=== PATIENT | female | born 1935 | race Caucasian/White ===

== ENCOUNTER 2016-12-29 13:40 | Emergency (ER) | payer MEDICARE ==
[~2016-12-29] VITALS: Ht 152.4 cm; Wt 49.9 kg
[2016-12-29] MEDS ORDERED: BUDE0.5S6 INH (13:59)
[2016-12-29] MEDS ORDERED: TYLE500T78 PO (13:59)
[2016-12-29] MEDS ORDERED: BROV15NE IN (13:59)
[2016-12-29] MEDS ORDERED: META48.54 PO (13:59)
[2016-12-29] MEDS ORDERED: AMIT24CA5 PO (13:59)
[2016-12-29] MEDS ORDERED: ASPI81TA13 PO (13:59)
[2016-12-29] MEDS ORDERED: LOVA40TA PO (13:59)
[2016-12-29] MEDS ORDERED: RANI15TA PO (13:59)
[2016-12-29] MEDS ORDERED: MIRA3350 PO (13:59)
[2016-12-29] MEDS ORDERED: XANA0.25 PO (13:59)
[2016-12-29] MEDS ORDERED: VERA240C PO (13:59)
[2016-12-29] MEDS ORDERED: TIOT18INH INH (13:59)
[2016-12-29] MEDS ORDERED: NS 1,000 ML IV SCH (14:27)
[2016-12-29 14:42] LABS: BASO % 0.2 % (0.0-1.0); EOS # 0.1 K/mm3 (0.0-0.50); EOS % 1.5 % (0.0-3.0); LARGE UNSTAINED CELL # 0.1 K/mm3 (0.0-0.4); LARGE UNSTAINED CELL % 1.5 % (0.0-4.0); LYMPH # 1.4 K/mm3 (1.5-4.5); LYMPH % 19.1 % (24.0-44.0); MEAN CORPUSCULAR HEMOGLOBIN 31.5 pg (27.0-33.0); MEAN CORPUSCULAR VOLUME 95.6 fl (80.0-96.0); MONO # 0.6 K/mm3 (0.0-0.8); MONO % 9.3 % (0.0-5.0); NEUTROPHILS # 4.5 K/mm3 (1.8-7.7); NEUTROPHILS % 68.3 % (36.0-66.0); PLATELET COUNT, AUTOMATED 286 k/mm3 (150-450); RED CELL DISTRIBUTION WIDTH 13.2 % (11.5-14.5); WHITE BLOOD COUNT 6.5 K/mm3 (4.0-10.0)
[2016-12-29 14:59] LABS: ALBUMIN 3.7 GM/DL (3.2-5.2); ALBUMIN/GLOBULIN RATIO 1.23 (1.00-1.93); ALKALINE PHOSPHATASE 83 U/L (45-117); ALT/SGPT 15 U/L (12-78); ANION GAP 8 MEQ/L (8-16); AST/SGOT 25 U/L (15-37); BILIRUBIN,DIRECT 0.2 MG/DL (0.0-0.2); BILIRUBIN,TOTAL 0.6 MG/DL (0.2-1.0); BLOOD UREA NITROGEN 17 MG/DL (7-18); CALCIUM LEVEL 9.4 MG/DL (8.8-10.2); CARBON DIOXIDE LEVEL 29 MEQ/L (21-32); CHLORIDE LEVEL 103 MEQ/L (98-107); CREATININE FOR GFR 0.89 MG/DL (0.55-1.02); GLOMERULAR FILTRATION RATE > 60.0 (>32); GLUCOSE, FASTING 93 MG/DL (83-110); POTASSIUM SERUM 4.1 MEQ/L (3.5-5.1); SODIUM LEVEL 140 MEQ/L (136-145); TOTAL PROTEIN 6.7 GM/DL (6.4-8.2)
[2016-12-29] MEDS ORDERED: GASTROGRAFIN SOLUTION 30ML (Q9963) PO ONE ×2 (16:00→16:30)
[2016-12-29] MEDS ORDERED: GASTROGRAFIN SOLUTION 30ML (Q9963) As Ordered ONE (16:01)
[2016-12-29] MEDS ORDERED: ISOVUE-370 76% 100ML VIAL (Q9967) As Ordered ONE (17:22)
--- NOTE | 2016-12-29 18:00 | REPUSA ---
CT of the abdomen and pelvis with contrast Clinical statement: Pain. Technique: Multiple axial CT images were obtained from the base of the lungs through the floor of the pelvis utilizing 5 mm axial slices after administration of oral and nonionic intravenous contrast. C oronal and sagittal reconstructions were also obtained. No comparison is available. Findings: Chest: The visualized lung bases are clear. There is a moderate sized hiatal hernia. Abdomen: The liver, spleen, pancreas, gallbladder, and adrenal glands are unremarkable. There is a so lid mass in the lateral right kidney measuring 2.5 x 1.9 x 2.9 cm, which demonstrates peripheral calc ifications. There are multiple bilateral simple renal cysts. The aorta is within normal limits. There is no evidence of abdominal lymphadenopathy or ascites. There is a very tiny umbilical hernia. Pelvis: There is diffuse bowel wall thickening involving the majority of the descending and sigmoid colon. The urinary bladder is within normal limits. The other pelvic structures appear grossly intact . There is no evidence of pelvic lymphadenopathy or ascites. Bones: There are no suspicious osseous abnormalities seen.Severe multilevel degenerative disc disease with disc osteophyte complexes are seen throughout the lumbar spine. There is moderate narrowing and osteophytic spurring at the hip joints bilaterally. Impression: 1. Diffuse bowel wall thickening involving the descending and sigmoid colon, suspicious for an infect ious colitis. No evidence of obstruction. 2. Solid, partially calcified mass in the lateral right kidney. This must be considered neoplasm unti l proven otherwise. Comparison with prior CT examination would be helpful. Otherwise, biopsy should be considered. 3.Additionally, bilateral simple renal cysts are noted. 4. Moderate sized hiatal hernia. 5. Tiny umbilical hernia. 6. Severe spondylosis of the lumbar spine. 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
[2016-12-29] MEDS ORDERED: FLAG500T PO (18:16)
[2016-12-29] MEDS ORDERED: CIPR500T89 PO (18:16)
[2016-12-29 18:49] VITALS: BP 162/75
== END 2016-12-29 18:51 | disposition home or self-care (01) ==
LOC: M ED 15:42
DX: K52.9 Noninfective gastroenteritis and colitis, unspecified (principal); I10 Essential (primary) hypertension; J44.9 Chronic obstructive pulmonary disease, unspecified; E78.9 Disorder of lipoprotein metabolism, unspecified; Z86.73 Personal history of transient ischemic attack (TIA), and cerebral infarction without residual deficits; Z88.8 Allergy status to other drugs, medicaments and biological substances; Z88.2 Allergy status to sulfonamides; Z79.899 Other long term (current) drug therapy; Z79.82 Long term (current) use of aspirin; Z79.51 Long term (current) use of inhaled steroids
CPT/HCPCS: 74177; 80048; 80076; 83690; 85025; 86850; 86900; 86901; 93041; 99284; Q9963; Q9967

== ENCOUNTER → 2017-01-14 | Outpatient (REF) | payer MEDICARE ==
[~2017-01-14] MED LIST: AMIT24CA5 PO; ASPI81TA13 PO; BROV15NE IN; BUDE0.5S6 INH; CIPR500T89 PO; FLAG500T PO; LOVA40TA PO; META48.54 PO; MIRA3350 PO; RANI15TA PO; TIOT18INH INH; TYLE500T78 PO; VERA240C PO; XANA0.25 PO
[2017-01-14 18:20] LABS: MEAN CORPUSCULAR HEMOGLOBIN 31.6 pg (27.0-33.0); MEAN CORPUSCULAR HGB CONC 31.9 g/dl (32.0-36.5); MEAN CORPUSCULAR VOLUME 99.3 fl (80.0-96.0); RED CELL DISTRIBUTION WIDTH 13.1 % (11.5-14.5); WHITE BLOOD COUNT 9.2 K/mm3 (4.0-10.0)
== END ==
LOC: M SFHCPLAZ 14:21
PROVIDERS: ATTEND Family Medicine
DX: D50.9 Iron deficiency anemia, unspecified (principal); N28.89 Other specified disorders of kidney and ureter

== ENCOUNTER → 2017-01-20 | Outpatient (REF) | payer MEDICARE ==
[2017-01-20 16:08] LABS: FOLATE 9.5 NG/ML (>5.4)
== END ==
LOC: M SFHCPLAZ 14:06
PROVIDERS: ATTEND Family Medicine
DX: D53.9 Nutritional anemia, unspecified (principal)
CPT/HCPCS: 36415; 82607; 82746; 84443; G0463

== ENCOUNTER → 2017-02-04 | Outpatient (CLI) | payer MEDICARE ==
--- NOTE | 2017-02-06 14:20 | DEXA ---
AP SPINE L1 - L4 1.250 0.4 2.8 LT FEMUR TOTAL 0.669 -2.7 -0.2 RT FEMUR TOTAL 0.691 -2.5 0.0 TOTAL BODY TOTAL OTHER DUAL FEMUR FRAX* ASSESSMENT Risk factors: Family history fracture hip, history of fracture as an adult. 10 year probability of fracture Major osteoporotic fracture 50.9 % Hip fracture 48.5 % COMMENTS: Normal bone densitometry of the spine. There is osteoporosis of the hips. The decreased density of the spine does represent a significant change. The decreased density of the left hip does represent a significant change. The decreased density of the right hip does represent a significant change. The density of the spine has increased 5.7% since the initial exam on 1998. The spine density has decreased 4.7% since the most recent exam on 07/10/2010. The density of the left hip has decreased 21.0% since the initial exam on 1998. The density of the left hip has decreased 13.1% since the most recent exam on . The density of the right hip has decreased 20.9% since initial exam on 1998. The density of the right hip has decreased 11.0% since the most recent exam on 07/10/2010. FOLLOW-UP: Recommendation for the next bone density exam: 2 years. KRISHNA
== END ==
LOC: M WHC 10:33
PROVIDERS: ATTEND Family Medicine
DX: M85.80 Other specified disorders of bone density and structure, unspecified site (principal); M81.0 Age-related osteoporosis without current pathological fracture

== ENCOUNTER → 2017-07-17 | Outpatient (CLI) | payer MEDICARE ==
[~2017-07-17] MED LIST changes: -AMIT24CA5 PO; +AMIT24CA7 PO; -ASPI81TA13 PO; +ASPI81TA24 PO; +CIPR-249 PO; -CIPR500T89 PO
--- NOTE | 2017-07-17 15:41 | REPMRS ---
Patient History The patient states she had a clinical breast exam in 07/2017. Patient is postmenopausal. Family history of colorectal cancer in father at age 50 or over and breast cancer in paternal aunt under age 50. Took estrogen for 7 years. Digital Woman Screen Mammo: July 17, 2017 - Exam #: [id number] Bilateral CC and MLO view(s) were taken. Technologist: Mikaela Harrison, Technologist Prior study comparison: July 16, 2016, digital woman screen mammo performed at [facility]. July 05, 2015, digital woman screen mammo performed at [facility]. July 05, 2014, digital woman screen mammo performed at [facility]. FINDINGS: There are scattered fibroglandular densities. There is a moderate amount of residual fibroglandular tissue which is fairly symmetric. There is no interval development of dominant mass, architectural distortion, or clustered microcalcification typical of malignancy. There has been no change in the appearance of the mammogram from the prior studies. ASSESSMENT: BI-RADS/ACR category 1 mammogram. Negative. Recommendation Routine screening mammogram of both breasts in 1 year (for women over age 40). This mammogram was interpreted with the aid of an FDA-approved computer-aided dectection system. Electronically Signed By: Wilfrid Schumacher MD 07/17/17 [id number]
== END ==
LOC: M WHC 14:09
PROVIDERS: ATTEND Nurse Practitioner Women's Health
DX: Z12.31 Encounter for screening mammogram for malignant neoplasm of breast (principal); Z78.0 Asymptomatic menopausal state; Z80.0 Family history of malignant neoplasm of digestive organs
CPT/HCPCS: G0202; G0463

== ENCOUNTER → 2018-01-19 | Outpatient (REF) | payer MEDICARE ==
[2018-01-19 16:01] LABS: HEMATOCRIT 36.9 % (36.0-47.0); HEMOGLOBIN 11.7 g/dl (12.0-15.5); MEAN CORPUSCULAR HEMOGLOBIN 29.5 pg (27.0-33.0); MEAN CORPUSCULAR HGB CONC 31.7 g/dl (32.0-36.5); MEAN CORPUSCULAR VOLUME 92.9 fl (80.0-96.0); PLATELET COUNT, AUTOMATED 241 10^3/uL (150-450); RED BLOOD COUNT 3.97 10^6/uL (4.00-5.40); RED CELL DISTRIBUTION WIDTH 23.4 % (11.5-14.5); WHITE BLOOD COUNT 6.1 10^3/uL (4.0-10.0)
[2018-01-19 16:17] LABS: ANION GAP 6 MEQ/L (8-16); BLOOD UREA NITROGEN 21 MG/DL (7-18); CALCIUM LEVEL 9.2 MG/DL (8.8-10.2); CARBON DIOXIDE LEVEL 29 MEQ/L (21-32); CHLORIDE LEVEL 106 MEQ/L (98-107); CREATININE FOR GFR 0.93 MG/DL (0.55-1.30); GLOMERULAR FILTRATION RATE > 60.0 (>32); GLUCOSE, FASTING 94 MG/DL (70-100); POTASSIUM SERUM 4.5 MEQ/L (3.5-5.1); SODIUM LEVEL 141 MEQ/L (136-145)
== END ==
LOC: M SFHCPLAZ 13:05
DX: I10 Essential (primary) hypertension (principal)
CPT/HCPCS: 80048

== ENCOUNTER 2018-03-20 15:25 | Emergency (ER) | payer MEDICARE ==
[2018-03-20] MEDS: NS 1,000 ML IV (17:30)
[2018-03-20 17:39] LABS: BASO % 0.3 % (0.0-1.0); EOS # 0.2 10^3/uL (0.0-0.50); EOS % 2.9 % (0.0-3.0); HEMATOCRIT 37.5 % (36.0-47.0); HEMOGLOBIN 12.8 g/dl (12.0-15.5); IMMATURE GRANULOCYTE % 0.3 % (0-3.0); LYMPH # 1.8 10^3/uL (1.5-4.5); LYMPH % 27.1 % (24.0-44.0); MEAN CORPUSCULAR HEMOGLOBIN 32.3 pg (27.0-33.0); MEAN CORPUSCULAR HGB CONC 34.1 g/dl (32.0-36.5); MEAN CORPUSCULAR VOLUME 94.7 fl (80.0-96.0); MONO # 0.6 10^3/uL (0.0-0.8); MONO % 9.5 % (0.0-5.0); NEUTROPHILS # 3.9 10^3/uL (1.8-7.7); NEUTROPHILS % 59.9 % (36.0-66.0); PLATELET COUNT, AUTOMATED 237 10^3/uL (150-450); RED BLOOD COUNT 3.96 10^6/uL (4.00-5.40); RED CELL DISTRIBUTION WIDTH 14.4 % (11.5-14.5); WHITE BLOOD COUNT 6.5 10^3/uL (4.0-10.0)
[2018-03-20 17:52] LABS: INR 0.88; PARTIAL THROMBOPLASTIN TIME 27.3 SECONDS (25.4-37.6); PROTHROMBIN TIME 12.1 SECONDS (12.1-14.4)
[2018-03-20 17:59] LABS: LACTIC ACID SEPSIS PROTOCOL 0.7 MMOL/L (0.4-2.0)
[2018-03-20] MEDS: ONDANSETRON 4MG/2ML VIAL (J2405) IV (17:59)
[2018-03-20 18:02] LABS: ALBUMIN 3.7 GM/DL (3.2-5.2); ALBUMIN/GLOBULIN RATIO 1.23 (1.00-1.93); ALKALINE PHOSPHATASE 89 U/L (45-117); ALT/SGPT 28 U/L (12-78); AMYLASE 37 U/L (25-115); ANION GAP 11 MEQ/L (8-16); AST/SGOT 30 U/L (7-37); BILIRUBIN,DIRECT 0.1 MG/DL (0.0-0.2); BILIRUBIN,TOTAL 0.4 MG/DL (0.2-1.0); BLOOD UREA NITROGEN 16 MG/DL (7-18); CALCIUM LEVEL 9.1 MG/DL (8.8-10.2); CARBON DIOXIDE LEVEL 26 MEQ/L (21-32); CHLORIDE LEVEL 104 MEQ/L (98-107); CK-MB VALUE MASS 1.8 NG/ML (<3.6); CPK CREATINE PHOSPHOKINASE 71 U/L (26-192); CREATININE FOR GFR 0.73 MG/DL (0.55-1.30); GLOMERULAR FILTRATION RATE > 60.0 (>32); GLUCOSE, FASTING 90 MG/DL (70-100); LIPASE 153 U/L (73-393); MB/CK RELATIVE INDEX 2.53 (< OR =4); POTASSIUM SERUM 4.4 MEQ/L (3.5-5.1); SODIUM LEVEL 141 MEQ/L (136-145); TOTAL PROTEIN 6.7 GM/DL (6.4-8.2); TROPONIN I < 0.02 NG/ML (< 0.10)
[2018-03-20 19:33] LABS: KETONE, URINE AUTO RFX NEGATIVE (NEGATIVE); NITRITE, URINE AUTO RFX NEGATIVE (NEGATIVE); RBC, URINE AUTO RFX 4 /HPF (0-3); SPECIFIC GRAVITY UR AUTO RFX 1.005 (1.002-1.035); SQUAM EPITHELIAL CELL UR AURFX 1 /HPF (0-6); TRANSITIONAL EPITHELIAL AU RFX <1 /HPF; WBC, URINE AUTO RFX 3 /HPF (0-3)
[2018-03-20 19:34] LABS: LEUKOCYTE ESTERASE UR AUTO RFX 1+ (NEGATIVE)
== END 2018-03-20 20:36 | disposition home or self-care (01) ==
LOC: M ED 15:25
DX: R53.1 Weakness (principal); I10 Essential (primary) hypertension; E78.00 Pure hypercholesterolemia, unspecified; K58.9 Irritable bowel syndrome, unspecified; Z79.899 Other long term (current) drug therapy; Z79.82 Long term (current) use of aspirin; Z88.1 Allergy status to other antibiotic agents; Z88.2 Allergy status to sulfonamides; Z88.8 Allergy status to other drugs, medicaments and biological substances
CPT/HCPCS: 93005

== ENCOUNTER → 2018-06-23 | Outpatient (REF) | payer MEDICARE ==
[2018-06-23 15:29] LABS: BASO % 0.3 % (0.0-1.0); EOS # 0.1 10^3/uL (0.0-0.50); EOS % 2.1 % (0.0-3.0); HEMATOCRIT 38.1 % (36.0-47.0); HEMOGLOBIN 12.6 g/dl (12.0-15.5); IMMATURE GRANULOCYTE % 0.5 % (0-3.0); LYMPH # 1.5 10^3/uL (1.5-4.5); LYMPH % 25.1 % (24.0-44.0); MEAN CORPUSCULAR HEMOGLOBIN 33.1 pg (27.0-33.0); MEAN CORPUSCULAR HGB CONC 33.1 g/dl (32.0-36.5); MONO # 0.6 10^3/uL (0.0-0.8); MONO % 10.1 % (0.0-5.0); NEUTROPHILS # 3.6 10^3/uL (1.8-7.7); NEUTROPHILS % 61.9 % (36.0-66.0); PLATELET COUNT, AUTOMATED 268 10^3/uL (150-450); RED BLOOD COUNT 3.81 10^6/uL (4.00-5.40); RED CELL DISTRIBUTION WIDTH 12.6 % (11.5-14.5); WHITE BLOOD COUNT 5.8 10^3/uL (4.0-10.0)
[2018-06-23 16:04] LABS: ALBUMIN 4.2 GM/DL (3.2-5.2); ALBUMIN/GLOBULIN RATIO 1.45 (1.00-1.93); ALKALINE PHOSPHATASE 97 U/L (45-117); ALT/SGPT 24 U/L (12-78); ANION GAP 7 MEQ/L (8-16); AST/SGOT 25 U/L (7-37); BILIRUBIN,TOTAL 0.3 MG/DL (0.2-1.0); BLOOD UREA NITROGEN 21 MG/DL (7-18); C REACTIVE PROTEIN QUANTITATIV < 0.30 MG/DL (0.00-0.30); CALCIUM LEVEL 9.4 MG/DL (8.8-10.2); CARBON DIOXIDE LEVEL 30 MEQ/L (21-32); CHLORIDE LEVEL 102 MEQ/L (98-107); CREATININE FOR GFR 0.93 MG/DL (0.55-1.30); GLOMERULAR FILTRATION RATE > 60.0 (>32); GLUCOSE, FASTING 83 MG/DL (70-100); POTASSIUM SERUM 4.4 MEQ/L (3.5-5.1); SODIUM LEVEL 139 MEQ/L (136-145); TOTAL PROTEIN 7.1 GM/DL (6.4-8.2)
== END ==
LOC: M LABDRAWP 14:27
DX: D50.9 Iron deficiency anemia, unspecified (principal)
CPT/HCPCS: 80053

== ENCOUNTER → 2018-06-30 | Outpatient (CLI) | payer MEDICARE ==
[~2018-06-30] MED LIST changes: -AMIT24CA7 PO; -ASPI81TA24 PO; -BROV15NE IN; -BUDE0.5S6 INH; -CIPR-249 PO; -FLAG500T PO; +GASTROGRAFIN SOLUTION 30ML (Q9963) As Ordered; +ISOVUE-370 76% 100ML VIAL (Q9967) As Ordered; -LOVA40TA PO; -META48.54 PO; -MIRA3350 PO; -RANI15TA PO; -TIOT18INH INH; -TYLE500T78 PO; -VERA240C PO; -XANA0.25 PO
== END ==
LOC: M RAD 13:12
DX: R11.2 Nausea with vomiting, unspecified (principal); R10.9 Unspecified abdominal pain; D50.9 Iron deficiency anemia, unspecified
CPT/HCPCS: Q9963

== ENCOUNTER → 2018-12-01 | Outpatient (REF) | payer MEDICARE ==
[~2018-12-01] MED LIST changes: +AMIT24CA7 PO; +ASPI81TA24 PO; +BRIM1OPD; +BROV15NE IN; +BUDE0.5S6 INH; +CIPR-249 PO; +FLAG500T PO; -GASTROGRAFIN SOLUTION 30ML (Q9963) As Ordered; -ISOVUE-370 76% 100ML VIAL (Q9967) As Ordered; +LINZ290C; +LOVA40TA PO; +META48.54 PO; +MIRA3350 PO; +OMEP20CA3; +RANI15TA PO; +TIOT18INH INH; +TRAN1TAB48; +TYLE500T78 PO; +VERA240C PO; +XANA0.25 PO
[2018-12-01 16:40] LABS: BLOOD UREA NITROGEN 17 MG/DL (7-18); CALCIUM LEVEL 8.9 MG/DL (8.8-10.2); CARBON DIOXIDE LEVEL 33 MEQ/L (21-32); CHLORIDE LEVEL 99 MEQ/L (98-107); CREATININE FOR GFR 0.74 MG/DL (0.55-1.30); GLOMERULAR FILTRATION RATE > 60.0 (>32); GLUCOSE, FASTING 81 MG/DL (70-100); POTASSIUM SERUM 4.5 MEQ/L (3.5-5.1); SODIUM LEVEL 137 MEQ/L (136-145)
[2018-12-01 16:53] LABS: HEMATOCRIT 35.9 % (36.0-47.0); HEMOGLOBIN 11.2 g/dl (12.0-15.5); MEAN CORPUSCULAR HEMOGLOBIN 29.8 pg (27.0-33.0); MEAN CORPUSCULAR HGB CONC 31.2 g/dl (32.0-36.5); MEAN CORPUSCULAR VOLUME 95.5 fl (80.0-96.0); PLATELET COUNT, AUTOMATED 389 10^3/uL (150-450); RED BLOOD COUNT 3.76 10^6/uL (4.00-5.40); WHITE BLOOD COUNT 6.8 10^3/uL (4.0-10.0)
[2018-12-01 17:02] LABS: CREATININE, URINE 90.1 MG/DL; MALB URINE SIEMENS 8.7 MG/L; MAU/CREAT RATIO 9.6 MCG/MG (0.0-30.0)
== END ==
LOC: M SFHCPLAZ 11:53
PROVIDERS: ATTEND Family Medicine
DX: D50.9 Iron deficiency anemia, unspecified (principal); I10 Essential (primary) hypertension
CPT/HCPCS: 36415; 80048; 82043; 85027; G0463

== ENCOUNTER → 2019-02-04 | Outpatient (REF) | payer MEDICARE ==
[2019-02-04 17:34] LABS: ALBUMIN 3.4 GM/DL (3.2-5.2); BILIRUBIN,TOTAL 0.3 MG/DL (0.2-1.0); C REACTIVE PROTEIN QUANTITATIV 7.35 MG/DL (0.00-0.30); CALCIUM LEVEL 9.1 MG/DL (8.8-10.2); CREATININE FOR GFR 1.08 MG/DL (0.55-1.30); GLOMERULAR FILTRATION RATE 51.3 (>32); POTASSIUM SERUM 5.1 MEQ/L (3.5-5.1); TOTAL PROTEIN 7.1 GM/DL (6.4-8.2)
[2019-02-04 17:45] LABS: BASO % 0.3 % (0.0-1.0); EOS # 0.2 10^3/uL (0.0-0.50); EOS % 3.3 % (0.0-3.0); HEMOGLOBIN 10.7 g/dl (12.0-15.5); LYMPH # 1.5 10^3/uL (1.5-4.5); LYMPH % 26.5 % (24.0-44.0); MEAN CORPUSCULAR HEMOGLOBIN 29.9 pg (27.0-33.0); MEAN CORPUSCULAR HGB CONC 31.5 g/dl (32.0-36.5); MONO # 0.6 10^3/uL (0.0-0.8); NEUTROPHILS # 3.4 10^3/uL (1.8-7.7); NEUTROPHILS % 58.6 % (36.0-66.0); PLATELET COUNT, AUTOMATED 293 10^3/uL (150-450); RED BLOOD COUNT 3.58 10^6/uL (4.00-5.40); WHITE BLOOD COUNT 5.7 10^3/uL (4.0-10.0)
== END ==
LOC: M LABDRAW1 15:19
PROVIDERS: ATTEND Internal Medicine Gastroenterology
DX: D50.9 Iron deficiency anemia, unspecified (principal)

== ENCOUNTER 2019-03-25 20:28 | Inpatient (IN) | payer MEDICARE ==
[~2019-03-25] VITALS: Ht 152.4 cm; Wt 54.2 kg
[~2019-03-25 20:28] MED LIST changes: -BROV15NE IN; +BROV15NE INH; -OMEP20CA3; +OMEP20CA4
[2019-03-25 21:16] LABS: BASO % 0.2 % (0.0-1.0); EOS # 0.1 10^3/uL (0.0-0.50); EOS % 0.8 % (0.0-3.0); HEMATOCRIT 38.9 % (36.0-47.0); HEMOGLOBIN 12.5 g/dl (12.0-15.5); LYMPH # 1.2 10^3/uL (1.5-4.5); LYMPH % 13.4 % (24.0-44.0); MEAN CORPUSCULAR HEMOGLOBIN 30.2 pg (27.0-33.0); MEAN CORPUSCULAR HGB CONC 32.1 g/dl (32.0-36.5); MONO # 0.4 10^3/uL (0.0-0.8); MONO % 4.2 % (0.0-5.0); NEUTROPHILS # 7.2 10^3/uL (1.8-7.7); NEUTROPHILS % 81.2 % (36.0-66.0); PLATELET COUNT, AUTOMATED 256 10^3/uL (150-450); RED BLOOD COUNT 4.14 10^6/uL (4.00-5.40); WHITE BLOOD COUNT 8.9 10^3/uL (4.0-10.0)
[2019-03-25 21:25] LABS: ALBUMIN 3.9 GM/DL (3.2-5.2); ALT/SGPT 20 U/L (12-78); BILIRUBIN,DIRECT 0.1 MG/DL (0.0-0.2); BILIRUBIN,TOTAL 0.4 MG/DL (0.2-1.0); BLOOD UREA NITROGEN 18 MG/DL (7-18); CARBON DIOXIDE LEVEL 31 MEQ/L (21-32); CHLORIDE LEVEL 103 MEQ/L (98-107); CREATININE FOR GFR 0.78 MG/DL (0.55-1.30); GLOMERULAR FILTRATION RATE > 60.0 (>32); GLUCOSE, FASTING 109 MG/DL (70-100); LIPASE 102 U/L (73-393); POTASSIUM SERUM 4.3 MEQ/L (3.5-5.1); SODIUM LEVEL 141 MEQ/L (136-145); TOTAL PROTEIN 7.5 GM/DL (6.4-8.2)
[2019-03-25] MEDS: GASTROGRAFIN SOLUTION 30ML PO SCH (23:22)
[2019-03-26] MEDS: GASTROGRAFIN SOLUTION 30ML PO SCH (00:21)
[2019-03-26] MEDS ORDERED: ISOVUE-370 76% 100ML VIAL (Q9967) As Ordered ONE (00:56)
[2019-03-26] MEDS ORDERED: KETOROLAC 30 MG/ML VIAL (J1885) IV ONE (01:15)
--- NOTE | 2019-03-26 05:04 | REPVR ---
EXAM: CT Abdomen and Pelvis With Contrast EXAM DATE/TIME: 03/26/2019 3:20 AM CLINICAL HISTORY: 83 years old, female; Abdominal pain; Generalized; Additional info: Gen abd pain similar to bowel obstruction in past TECHNIQUE: Imaging protocol: Axial computed tomography images of the abdomen and pelvis with intravenous contrast. Coronal and sagittal reformatted images were created and reviewed. Radiation optimization: All CT scans at this facility use at least one of these dose optimization techniques: automated exposure control; mA and/or kV adjustment per patient size (includes targeted exams where dose is matched to clinical indication); or iterative reconstruction. Contrast material: ISOVUE 370; Contrast volume: 100 ml; Contrast route: IV; COMPARISON: CT ABD PELVIS WITH CONTRAST 06/30/2018 2:54 PM Comparison made to the report of a prior CT scan of the abdomen and pelvis from 12/29/2016. FINDINGS: Lungs: There is nonspecific patchy density and increased reticulation in the anterior left lung base. There is suggestion of emphysema in the visualized lung bases. Mediastinum: A moderate sized hiatal hernia is again present. Liver: There are no focal liver lesions present. Gallbladder and bile ducts: The gallbladder is normal with no stones or biliary ductal dilation. Pancreas: The pancreas is normal with no ductal dilation. Spleen: 4 mm and 6 mm low attenuation lesions are in noted in the spleen, of uncertain etiology but unchanged from the prior exam and of doubtful clinical significance. Adrenals: The adrenal glands are diffusely thickened but without discrete nodules. Kidneys and ureters: There is a heterogeneous density, partially calcified lesion at the right kidney midpole measuring 2.6 x 2.2 x 3.3 cm, without significant change from the prior exam. However, on a prior report from a CT scan of December,, measurements of 2.5 x 1.9 x 2.9 cm were obtained. A 2.8 cm simple cyst in the left kidney a 3.1 cm simple cyst in the right kidney midpole and a 2.0 cm simple cyst in right kidney lower pole are without significant change. There are no ureteral stones or hydronephrosis. Stomach and bowel: There are multiple dilated, fluid-filled small bowel loops in the midabdomen, which appears to involve the mid and distal ileum. Proximal small bowel loops are not significantly dilated. The transition is in the distal ileum, where there is a thickened, nondistended bowel loop at the terminal ileum. The colon is non-dilated. There is air and stool in the colon without significant wall thickening. Appendix: The appendix is not specifically identified. Intraperitoneal space: There is no free intraperitoneal air. Vasculature: The aorta demonstrates severe atherosclerotic calcification. Lymph nodes: No lymphadenopathy is seen. Bladder: There is distention of the bladder measuring 13.4 x 14.7 x 12.5 cm. No definite bladder wall thickening or bladder stones are identified. Reproductive: The uterus is either atrophic or has been resected. Bones/joints: Degenerative endplate changes are seen at multiple levels in the visualized spine. Soft tissues: Unremarkable. IMPRESSION: 1. Dilated, fluid-filled small bowel, indicating a small bowel obstruction. The transition is at a thickened segment of the distal ileum, but the etiology of the thickening is unknown and may be infectious/inflammatory or neoplastic. 2. Distended bladder. 3. Moderate-sized hiatal hernia. 4. Complex, partially calcified lesion in the right kidney, as seen and reported previously is suspicious for neoplasm. It has not changed significantly in size compared to June 2018, but measurements are larger than measurements given on a prior report from December,. Electronically signed by: Brenna Echeverria On 03/26/2019 05:04:14 AM
[2019-03-26] MEDS ORDERED: MORPHINE 4 MG/ML 1ML VIAL/SYRINGE (J2270) As Ordered ONE (05:26)
[2019-03-26] MEDS ORDERED: NS 1,000 ML IV SCH (05:28)
[2019-03-26] MEDS ORDERED: MORPHINE 4 MG/ML 1ML VIAL/SYRINGE (J2270) IV ONE (05:30)
[2019-03-26] MEDS ORDERED: ONDANSETRON 4MG/2ML VIAL (J2405) As Ordered ONE (05:34)
[2019-03-26] MEDS ORDERED: PANT-23 PO (05:56)
[2019-03-26] MEDS ORDERED: DICY1CAP8 PO (05:56)
[2019-03-26] MEDS ORDERED: LINZ290C PO (05:56)
[2019-03-26] MEDS ORDERED: BRIM1OPD OU (05:56)
[2019-03-26] MEDS ORDERED: CHOL10007 PO (05:56)
[2019-03-26] MEDS ORDERED: SPIR1CAP INH (05:56)
[2019-03-26] MEDS ORDERED: MIRA1POW3 PO (05:56)
[2019-03-26] MEDS ORDERED: TRAN1TAB47 PO (05:56)
[2019-03-26] MEDS ORDERED: SENN1TAB8 PO (05:56)
[2019-03-26] MEDS ORDERED: ACET-683 PO (05:56)
[2019-03-26] MEDS ORDERED: XALA0.007 OU (05:56)
[2019-03-26] MEDS ORDERED: VERA180C3 PO (05:56)
[2019-03-26] MEDS ORDERED: LOVA40TA PO (05:56)
[2019-03-26] MEDS ORDERED: CALC600T60 PO (05:56)
[2019-03-26] MEDS ORDERED: ONDANSETRON 4MG/2ML VIAL (J2405) IV ONE (06:00)
--- NOTE | 2019-03-26 06:04 | HPEPDOC ---
General Date of Admission 03/26/19 Date of Service: Mar 26, 2019 Attending Physician: DARIEN SOLIS MD Chief Complaint The patient is a 83-year-old female admitted with a reason for visit of Abd Pain . Source: Patient, Family Exam Limitations: No limitations Timing/Duration: Day(s) Severity: Moderate Associated Symptoms: Nausea, Vomiting History of Present Illness 83 years old white female presented with chief complaint of abdominal pain with diarrhea since 3-4 days ago. Pain is mostly epigastric, nonradiating, persistent not relieving with any medication, associated with diarrhea exacerbated by any food intake Home Medications Scheduled Alprazolam (Xanax) 0.25 Mg Tab, 0.25 MG PO BID, (Reported) Arformoterol Tartrate (Brovana) 15 Mcg/2 Ml Neb, 15 MCG INH BID, (Reported) MIXES WITH BUDESONIDE Aspirin (Aspirin EC) 81 Mg Tab, 81 MG PO DAILY, (Reported) Brimonidine Tartrate (Alphagan P) 0.1% 5ML Drops, 1 DROP OU BID, (Reported) Budesonide (Budesonide) 0.5 Mg/2 Ml Neb, 0.5 MG INH BID, (Reported) MIXES WITH BROVANA Calcium Carbonate (Calcium) 600 Mg Tablet, 600 MG PO DAILY, (Reported) Cholecalciferol (Vitamin D3) (Vitamin D3) 1,000 Unit Tablet, 1,000 UNIT PO DAILY, (Reported) Dicyclomine HCl (Dicyclomine HCl) 10 Mg Capsule, 10 MG PO BID, (Reported) Latanoprost (Xalatan) 0.005% 2.5ML Drops, 1 DROP OU QHS, (Reported) Linaclotide (Linzess) 290 Mcg Capsule, 290 MCG PO DAILY, (Reported) Lovastatin (Lovastatin) 40 Mg Tablet, 40 MG PO QHS, (Reported) Pantoprazole Sodium (Pantoprazole Sodium) 40 Mg Tablet.dr, 40 MG PO DAILY, (Reported) Sennosides (Senna) 8.6 Mg Tablet, 8.6 MG PO QHS, (Reported) Tiotropium Capitan (Spiriva) 18 Mcg Cap.w.dev, 1 INHALATION INH DAILY, (Reporte d) Trandolapril (Trandolapril) 1 Mg Tablet, 1 MG PO QHS, (Reported) Verapamil HCl (Verapamil Sr) 180 Mg Cap24h.pel, 180 MG PO DAILY, (Reported) Scheduled PRN Acetaminophen (Acetaminophen) 500 Mg Tablet, 500 MG PO Q4H PRN for PAIN, (Reported) Polyethylene Glycol 3350 (Miralax) 17 Gm Powd.pack, 17 GM PO DAILY PRN for CONSTIPATION, (Reported) Allergies Coded Allergies: Sulfa (Sulfonamide Antibiotics) (Verified Adverse Reaction, Mild, nausea, 03/25/19) aspirin (Verified Adverse Reaction, Mild, nausea, 03/25/19) Past Medical History Medical History Hypertension, COPD, status post hysterectomy, bladder suspension, right carotid endarterectomy IBS bowel obstruction, oxygen dependent, Surgical History As above Family History Significant Family History: No pertinent family hx Social History * Smoker: Denies Alcohol: Denies A-FIB/CHADSVASC A-FIB History Current/History of A-Fib/PAF?: No Review of Systems Constitutional: Denies: Chills, Fever, Malaise, Night Sweats, Weakness, Fatigue , Weight Loss, Lethargy, Other Eyes: Denies: Pain, Vision change, Conjunctivae inflammation, Eyelid inflammation, Redness, Other ENT: Denies: Head Aches, Ear Pain, Dysphagia, Sinus Congestion, Post Nasal Drip, Sore Throat, Epistaxis, Other Symptoms Skin: Denies: Rash, Lesions, Jaundice, Bruising, Itching, Dry, Breakdown, Nail Changes, Other Pulmonary: Denies: Dyspnea, Cough, Pleuritic Chest Pain, Other Symptoms Gastrointestinal: Reports: Nausea, Abdominal Pain, Diarrhea Genitourinary: Denies: Dysuria, Frequency, Incontinence, Hematuria, Retention, Other Symptoms Hematologic: Denies: Bruising, Bleeding Excessively, Petecchia, Purpura, Enla rged Lymph Nodes, Other Hematologic Endocrine: Denies: Polydipsia, Polyphagia, Polyuria, Heat Intolerance, Cold Intolerance, Other Endocrine Sx Musculoskeletal: Denies: Neck Pain, Back Pain, Shoulder Pain, Arm Pain, Hand Pain, Leg Pain, Foot Pain, Joint Pain, Muscle Pain, Spasms, Other Symptoms Neurological: Denies: Weakness, Numbness, Incoordination, Change in speech, Confusion, Seizures, Other Symptoms Psych: Denies: Mood Normal, Anxiety, Depression, Memory Issues, Thoughts of Self Harm, Anger, Thoughts of Harming Other, Other Psych Physical Examination General Exam: Positive: Alert, Cooperative Eye Exam: Positive: PERRLA, Conjunctiva & lids normal ENT Exam: Positive: Atraumatic Neck Exam: Positive: Supple Chest Exam: Positive: Clear to auscultation, Normal air movement Heart Exam: Positive: Rate Normal, Normal S1, Normal S2 Abdomen Exam: Positive: BS Hypoactive, Tenderness (epigastric area. No rebound tenderness) Extremity Exam: Positive: Normal pulses Skin Exam: Positive: Nl turgor and temperature Neuro Exam: Positive: Strength at 5/5 X4 ext, Sensation Intact Psych Exam: Positive: Mental status NL, Oriented x 3 Vital Signs Vital Signs Date Time Temp Pulse Resp B/P (MAP) Pulse Ox O2 Delivery O2 Flow Rate FiO2 03/26/19 05:41 97.6 93 18 177/96 (123) 100 Nasal Cannula 2.0 Laboratory Data Labs 24H Laboratory Tests 2 03/25/19 20:43: Immature Granulocyte % (Auto) 0.2, White Blood Count 8.9, Red Blood Count 4.14, Hemoglobin 12.5, Hematocrit 38.9, Mean Corpuscular Volume 94.0, Mean Corpuscular Hemoglobin 30.2, Mean Corpuscular Hemoglobin Concent 32.1, Red Cell Distribution Width 14.4, Platelet Count 256, Neutrophils (%) (Auto) 81.2H, Lymphocytes (%) (Auto) 13.4L, Monocytes (%) (Auto) 4.2, Eosinophils (%) (Auto) 0.8, Basophils (%) (Auto) 0.2, Neutrophils # (Auto) 7.2, Lymphocytes # (Auto) 1.2L, Monocytes # (Auto) 0.4, Eosinophils # (Auto) 0.1, Basophils # (Auto) 0.0, Nucleated Red Blood Cells % (auto) 0.0, Anion Gap 7L, Glomerular Filtration Rate > 60.0, Calcium Level 10.0, Aspartate Amino Transf (AST/SGOT) 25, Alanine Am inotransferase (ALT/SGPT) 20, Alkaline Phosphatase 103, Total Bilirubin 0.4, Direct Bilirubin 0.1, Total Protein 7.5, Albumin 3.9, Albumin/Globulin Ratio 1.08, Lipase 102 CBC/BMP Laboratory Tests 03/25/19 20:43 Red Blood Count 4.14, Mean Corpuscular Volume 94.0, Mean Corpuscular Hemoglobin 30.2, Mean Corpuscular Hemoglobin Concent 32.1, Red Cell Distribution Width 14.4, Neutrophils (%) (Auto) 81.2 H, Lymphocytes (%) (Auto) 13.4 L, Monocytes (%) (Auto) 4.2, Eosinophils (%) (Auto) 0.8, Basophils (%) (Auto) 0.2, Neutrophils # (Auto) 7.2, Lymphocytes # (Auto) 1.2 L, Monocytes # (Auto) 0.4, Eosinophils # (Auto) 0.1, Basophils # (Auto) 0.0 Problems (1) Small bowel obstruction Status: Acute Problem Text: 82 years old white female with past medical history of SBO in November of this year presented again with abdominal pain, diarrhea, nausea and on CAT scan consistent with small bowel obstruction again CT of the abdomen and pelvis shows:IMPRESSION: 1. Dilated, fluid-filled small bowel, indicating a small bowel obstruction. The transition is at a thickened segment of the distal ileum, but the etiology of the thickening is unknown and may be infectious/inflammatory or neoplastic. 2. Distended bladder. 3. Moderate-sized hiatal hernia. 4. Complex, partially calcified lesion in the right kidney, as seen and reported previously is suspicious for neoplasm. It has not changed significantly in size compared to June 2018, but measurements are larger than measurements given on a prior report from December,. Nothing by mouth NGT Pain management with morphine sulfate Zofran when necessary for nausea, vomiting IV fluid normal saline 800 mL per hour Surgical consult with Dr. Vieyra called. He will see patient this morning Further, as per surgery Hold all by mouth meds DVT prophylaxis with bilateral SCDs (2) Renal mass Status: Chronic Problem Text: CT of the abdomen and pelvis shows: Complex, partially calcified lesion in the right kidney, as seen and reported previously is suspicious for neoplasm. It has not changed significantly in size compared to June 2018, but measurements are larger than measurements given on a prior report from December,. Will possibly need further workup, but and possibly oncology consultation Plan / VTE VTE Prophylaxis Ordered?: Yes DARIEN SOLIS MD Mar 26, 2019 06:04
[2019-03-26] MEDS: NS 1,000 ML IV SCH ×2 (06:05→15:12)
[2019-03-26] MEDS ORDERED: VITA200021 PO (06:06)
[2019-03-26] MEDS ORDERED: CALC500T44 PO (06:06)
--- NOTE | 2019-03-26 07:44 | REP ---
Portable chest, 06:13 a.m., single AP view with the patient sitting: Comparison is 09/21/2013. There is a nasogastric tube with the tip terminating in the and hiatal hernia. The right lung is clear. The left lung is clear except for my mild atelectasis inferiorly. Cardiac size is upper normal. The meli, mediastinum, skeletal structures are unremarkable except for right shoulder impingement. Impression: The nasogastric tube terminates in an hiatal hernia. There is mild atelectasis inferiorly in the left lung. Electronically Signed by Chago Church MD 03/26/2019 07:36 A
[2019-03-26 08:20] VITALS: BP 161/68
[2019-03-26 14:00] VITALS: BP 133/68
[2019-03-26] MEDS: MORPHINE 4 MG/ML 1ML VIAL/SYRINGE (J2270) IV PRN ×2 (14:54→23:06)
[2019-03-26] MEDS: ONDANSETRON 4MG/2ML VIAL (J2405) IV PRN ×2 (15:04→23:05)
--- NOTE | 2019-03-26 16:07 | REP ---
Abdominal series four views including two PA views of the chest and two supine views of the abdomen: Comparisons are the abdomen and pelvis CT performed earlier today and the portable plain film study of the chest performed earlier today. PA chest two views: There is a nasogastric tube terminating in a hiatal hernia. This is unchanged from the portable chest earlier today. Lung horne appear hyperinflated, unchanged. There is atelectasis/scarring inferiorly in the left lung, unchanged. There is no free subdiaphragmatic air. Cardiac size is upper normal, unchanged. The meli, mediastinum, skeletal structures are unremarkable. Impression: The nasogastric tube terminates in a hiatal hernia. No free subdiaphragmatic air. Other findings as described. Abdomen, two supine views: There are multiple mildly dilated small bowel loops throughout the abdomen. There appear to be slightly less dilated than on the CT scan earlier today. The bladder is distended and opacified, likely from the IV contrast for the CT earlier today. There is degenerative disc disease throughout the lumbar spine. Electronically Signed by Chago Church MD 03/26/2019 03:59 P
[2019-03-26] MEDS ORDERED: ALBUTEROL SULFATE 2.5 MG/0.5 ML INH NEB SOLN NEB PRN (20:15)
--- NOTE | 2019-03-26 20:16 | IPNPDOC ---
Text Note Date of Service The patient was seen on 03/26/19. NOTE S: patient admitted earlier this AM with SBO. NGT intact but not draining. patient states RLQ and epigastric abdomen pain O: vitals as below HRRR LCTA no W/R/R Abdomen: soft with RLQ mass; epigastric/RLQ tenderness, minimal bowel sounds; NGT flushed. XRAY images reviewed and NGT curled into antrum of stomach/hiatal hernia, pulled back and reinserted without success. KUB with airfluid levels A/P: Small Bowel obstruction - surgery consulted and case discussed with Dr Krause. he will evaluate NGT. NGT clamped (no LIS) Hypertension- restart verapamil and clamp NGT for absorption. if unable to control HR/BP with oral meds, will need transferred to PCU for IV medications 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 - continue with spiriva, pulmicort and prn albuterol Anxiety - patient on fpc low dose xanax BID - to avoid withdraw - will start scheduled ativan 0.5mg IV BID (hold for sedation,lethargy) VS,Fishbone, I+O VS, Fishbone, I+O Laboratory Tests 03/25/19 20:43 Red Blood Count 4.14, Mean Corpuscular Volume 94.0, Mean Corpuscular Hemoglobin 30.2, Mean Corpuscular Hemoglobin Concent 32.1, Red Cell Distribution Width 14.4, Neutrophils (%) (Auto) 81.2 H, Lymphocytes (%) (Auto) 13.4 L, Monocytes ( %) (Auto) 4.2, Eosinophils (%) (Auto) 0.8, Basophils (%) (Auto) 0.2, Neutrophils # (Auto) 7.2, Lymphocytes # (Auto) 1.2 L, Monocytes # (Auto) 0.4, Eosinophils # (Auto) 0.1, Basophils # (Auto) 0.0 Vital Signs Date Time Temp Pulse Resp B/P (MAP) Pulse Ox O2 Delivery O2 Flow Rate FiO2 03/26/19 09:00 2.0 03/26/19 08:20 97.1 91 18 161/68 (99) 97 03/26/19 07:53 Room Air CAREY PONCE DO Mar 26, 2019 13:43
[2019-03-26] MEDS: LORazepam 2 MG/ML VIAL (J2060) IV SCH (21:00)
[2019-03-26 22:00] VITALS: BP 154/82
--- NOTE | 2019-03-26 23:16 | CR.PDOC ---
General Surgery Consultation Date of Consultation 03/26/19 History and Physical CONSULT REPORT FOR: Dr. Webster (hospialist service) REASON FOR CONSULTATION: small bowel obstruction HISTORY OF PRESENT ILLNESS: I was asked to see in help manage this patient who has been admitted overnight have her presentation with complaints of 2 days history of abdominal pain and discomfort. Patient reports right lower quadrant and epigastric discomfort that roughly started Friday evening. She describes this as cramping abdominal discomfort. She was nauseated and had a couple episodes of vomiting on Friday evening. The pain persisted through the night. She mildly felt better in the morning enough to try some toast and coffee which he tolerated but the pain seems to worsened through the course of the day prompting her family to bring her to the emergency room. In the emergency room she was found to have evidence for bowel obstruction related to possible inflammation in the terminal ileum. She reports prior history of bowel obstruction back in November wall she was in [place] for which she was admitted for roughly a week. 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 She has a known hiatal hernia which is e stimated to be about 56 cm from the endoscopy. He also try to perform colonoscopy will was not able to complete this. According to the patient today could not make the turn passed the hepatic flexure. She subsequently had a barium enema done. From her description the only significant finding was pre sence of diverticulosis. She has had a previous colonoscopy done by Dr. Soliz at about 2010. In 2018 though she could not recall fully, review of the records so she had some episodes of severe anemia and bleeding for which she was worked up. She remembers having a capsule endoscopy done but could not remember she had an upper endoscopy or colonoscopy at that time. Apparent sources of bleeding was found at that time. This was also perform all she was in [place] where she spends her forbes. When she returned here she was seen by Dr. Soliz for some left lower quadrant abdominal discomfort as well as diarrhea back in February for which she was treated for presumed diverticulitis. I did not see any evidence of imaging at that time. She has a history of irritable bowel syndrome for which she is on Linzess. She apparently was told by her doctors in [place] that she needs to take MiraLAX. She tells me that she does not not is any difference when she is on MiraLAX. He was having some loose stools once or twice a day which she describes as diarrhea prior to the episode last Friday. She has not had a bowel movement since Friday. She also denies passing flatus. She denies any fevers or chills. She denies any prior history of inflammatory bowel disease or any significant family history of it. PAST MEDICAL HISTORY: 1. hypertension 2. COPD - O2 requirments at night and prn 3. Reports previous bowel obstruction 4. Irritable bowel syndrome PAST SURGICAL HISTORY: INCLUDES: 1. hysterectomy and bladder suspension 2. colonoscopy 3. Right carotid endarterectomy ALLERGIES: Please see below. FAMILY HISTORY: Reports having nieces and nephews with Crohn's disease HOME MEDICATIONS: Please see below. REVIEW OF SYSTEMS: GENERAL: Denies any significant weight loss. HEENT: Denies blurred vision and double vision. Denies ear symptoms. Denies hoarseness. NECK: Denies any neck pain CARDIOVASCULAR: Denies chest pain and palpitations. SKIN: Denies rash. NEUROLOGIC: Denies headache, stroke and transient ischemic attack. PSYCHIATRIC: Denies anxiety and depression. ENDOCRINE: Denies thyroid disease. HEMATOLOGY/ONCOLOGY: Denies bleeding or clotting disorder. HEART: Denies any chest pains, palpitations, paroxysmal dyspnea, orthopnea. PULMONARY: Patient has significant history for COPD requiring oxygen. GASTROINTESTINAL: See HPI. Recent history of bowel obstruction back in October. Also reports history of GI bleeding. Recent colonoscopy and upper endoscopy with finding of angiectasia in [place] GENITOURINARY: Denies dysuria, frequency, hematuria and nocturia. ENDOCRINE: Denies polydipsia, polyphagia, polyuria, heat or cold intolerance. INFECTIOUS: Denies any recent upper respiratory tract infection, UTI, need for use of antibiotics. NUTRITION: Reports poor appetite. PHYSICAL EXAMINATION: VITALS SIGNS: Please see below. GENERAL APPEARANCE: Patient seen on bed, overall looks comfortable. She is cooperative.. SKIN: Warm and dry. HEENT: She has a nasogastric tube in place which is draining some light brownish thin fluid. She is on O2 via nasal cannula NECK: Supple, no thyromegaly. No obvious jugular venous distention. LUNGS: Clear to auscultation bilaterally. No wheezing appreciated. HEART: No chest wall abnormalities. Regular rate and rhythm with no murmurs appreciated. ABDOMEN: Abdomen is minimally distended, soft, and mildly tympanitic. She has point tenderness located over the right lower quadrant area with mild guarding. She is nontender in all the other parts of the abdomen specifically on the left lower quadrant area. EXTREMITIES: Extremities have no deformities. No edema identified ANCILLARIES: . LABORATORY DATA: Please see below. IMAGING STUDIES: CT abdomen and pelvis Stomach and bowel: There are multiple dilated, fluid-filled small bowel loops in the midabdomen, which appears to involve the mid and distal ileum. Proximal small bowel loops are not significantly dilated. The transition is in the distal ileum, where there is a thickened, nondistended bowel loop at the terminal ileum. The colon is non-dilated. There is air and stool in the colon without significant wall thickening. Appendix: The appendix is not specifically identified. Intraperitoneal space: There is no free intraperitoneal air. Vasculature: The aorta demonstrates severe atherosclerotic calcification. Lymph nodes: No lymphadenopathy is seen. Bladder: There is distention of the bladder measuring 13.4 x 14.7 x 12.5 cm. No definite bladder wall thickening or bladder stones are identified. Reproductive: The uterus is either atrophic or has been resected. Bones/joints: Degenerative endplate changes are seen at multiple levels in the visualized spine. Soft tissues: Unremarkable. IMPRESSION: 1. Dilated, fluid-filled small bowel, indicating a small bowel obstruction. The transition is at a thickened segment of the distal ileum, but the etiology of the thickening is unknown and may be infectious/inflammatory or neoplastic. 2. Distended bladder. 3. Moderate-sized hiatal hernia. 4. Complex, partially calcified lesion in the right kidney, as seen and reported previously is suspicious for neoplasm. It has not changed significantly in size compared to June 2018, but measurements are larger than measurements given on a prior report from December,. IMPRESSION AND PLAN: hiatal hernia small bowel obstruction ?thickening at terminal ileum as cause of obstruction Patient is a bowel obstruction related to an area of the terminal ileum that looks to be inflamed and CT. She does not give a history of inflammatory bowel disease. This could be infectious in nature or inflammatory in of course given her age can be a neoplastic process. She gives quite varied history and prolonged history of abdominal pain and discomfort, diarrhea and constipation and recent history of bowel obstruction back in October or November of this year old she was in [place] which was treated nonoperatively with resolution of her symptoms. At that time an attempt at colonoscopy was done but was not completed apparently has had a barium enema. After placement of nasogastric tube even no there was not much in the canister patient reports improvement of her symptoms. She is complaining of some epigastric discomfort. The description of the admitting hospitalist which a think is more related to her hiatal hernia. She still has some tenderness on the right lower quadrant area on my palpation. I think it is prudent to start her on some antibiotics for possibility of an infectious process causing the ileitis. I will observe her course area I think she will need some further imaging whether it be a small bowel follow-through or CT enterography later on to figure out what the nature as of this inflammation and depending on results of this and if her obstruction does not really resolve in appropriate. Time for observation may need surgery. Vital Signs Vital Signs Date Time Temp Pulse Resp B/P (MAP) Pulse Ox O2 Delivery O2 Flow Rate FiO2 03/26/19 15:07 18 2.0 03/26/19 14:00 98.3 91 133/68 (89) 98 03/26/19 07:53 Room Air Laboratory Data Labs 24H Laboratory Tests 2 03/25/19 20:43: Immature Granulocyte % (Auto) 0.2, White Blood Count 8.9, Red Blood Count 4.14, Hemoglobin 12.5, Hematocrit 38.9, Mean Corpuscular Volume 94.0, Mean Corpuscular Hemoglobin 30.2, Mean Corpuscular Hemoglobin Concent 32.1, Red Cell Distribution Width 14.4, Platelet Count 256, Neutrophils (%) (Auto) 81.2H, Lymphocytes (%) (A uto) 13.4L, Monocytes (%) (Auto) 4.2, Eosinophils (%) (Auto) 0.8, Basophils (%) (Auto) 0.2, Neutrophils # (Auto) 7.2, Lymphocytes # (Auto) 1.2L, Monocytes # (Auto) 0.4, Eosinophils # (Auto) 0.1, Basophils # (Auto) 0.0, Nucleated Red Blood Cells % (auto) 0.0, Anion Gap 7L, Glomerular Filtration Rate > 60.0, Calcium Level 10.0, Aspartate Amino Transf (AST/SGOT) 25, Alanine Aminotransferase (ALT/SGPT) 20, Alkaline Phosphatase 103, Total Bilirubin 0.4, Direct Bilirubin 0.1, Total Protein 7.5, Albumin 3.9, Albumin/Globulin Ratio 1.08, Lipase 102 CBC/BMP Laboratory Tests 03/25/19 20:43 Red Blood Count 4.14, Mean Corpuscular Volume 94.0, Mean Corpuscular Hemoglobin 30.2, Mean Corpuscular Hemoglobin Concent 32.1, Red Cell Distribution Width 14.4, Neutrophils (%) (Auto) 81.2 H, Lymphocytes (%) (Auto) 13.4 L, Monocytes (%) (Auto) 4.2, Eosinophils (%) (Auto) 0.8, Basophils (%) (Auto) 0.2, Neutrophils # (Auto) 7.2, Lymphocytes # (Auto) 1.2 L, Monocytes # (Auto) 0.4, Eosinophils # (Auto) 0.1, Basophils # (Auto) 0.0 Home Medications Scheduled Alprazolam (Xanax) 0.25 Mg Tab, 0.25 MG PO BID, (Reported) Amoxicillin/Potassium Clav (Augmentin 875-125 Tablet) 1 Each Tablet, 1 TAB PO BID Arformoterol Tartrate (Brovana) 15 Mcg/2 Ml Neb, 15 MCG INH BID, (Reported) MIXES WITH BUDESONIDE Aspirin (Aspirin EC) 81 Mg Tab, 81 MG PO DAILY, (Reported) Brimonidine Tartrate (Alphagan P) 0.1% 5ML Drops, 1 DROP OU BID, (Reported) Budesonide (Budesonide) 0.5 Mg/2 Ml Neb, 0.5 MG INH BID, (Reported) MIXES WITH BROVANA Calcium Carbonate/Vitamin D3 (Calcium 500-Vit D3 200 Tablet) 1 Each Tablet, 1 TAB PO DAILY, (Reported) Cholecalciferol (Vitamin D3) (Vitamin D3) 2,000 Unit Capsule, 2,000 UNIT PO DAILY, (Reported) Dicyclomine HCl (Dicyclomine HCl) 10 Mg Capsule, 10 MG PO BID, (Reported) Docusate Sodium (Colace) 100 Mg Capsule, 100 MG PO BID Latanoprost (Xalatan) 0.005% 2.5ML Drops, 1 DROP OU QHS, (Reported) Linaclotide (Linzess) 290 Mcg Capsule, 290 MCG PO DAILY, (Reported) Lovastatin (Lovastatin) 40 Mg Tablet, 40 MG PO QHS, (Reported) Pantoprazole Sodium (Pantoprazole Sodium) 40 Mg Tablet.dr, 40 MG PO DAILY, (Reported) Sennosides (Senna) 8.6 Mg Tablet, 8.6 MG PO QHS, (Reported) Tiotropium [place] (Spiriva) 18 Mcg Cap.w.dev, 1 INHALATION INH DAILY, (Reported ) Trandolapril (Trandolapril) 1 Mg Tablet, 1 MG PO QHS, (Reported) Verapamil HCl (Verapamil Sr) 180 Mg Cap24h.pel, 180 MG PO DAILY, (Reported) Scheduled PRN Acetaminophen (Acetaminophen) 500 Mg Tablet, 500 MG PO Q4H PRN for PAIN, (Reported) Polyethylene Glycol 3350 (Miralax) 17 Gm Powd.pack, 17 GM PO DAILY PRN for CONSTIPATION, (Reported) Allergies Coded Allergies: Sulfa (Sulfonamide Antibiotics) (Verified Adverse Reaction, Mild, nausea, 03/25/19) aspirin (Verified Adverse Reaction, Mild, nausea, 03/25/19) OVI MATHIAS MD Mar 26, 2019 18:27
[2019-03-26] MEDS: BRIMONIDINE 0.1% OPHTH SOLN 5 ML OU SCH (23:19)
[2019-03-26] MEDS: LATANOPROST 0.005% OPHTH SOLN 2.5 ML OU SCH (23:20)
[2019-03-27] MEDS: NS 1,000 ML IV SCH ×2 (01:32→13:17)
[2019-03-27 06:00] VITALS: BP 116/61
[2019-03-27 06:43] LABS: HEMATOCRIT 32.8 % (36.0-47.0); HEMOGLOBIN 10.6 g/dl (12.0-15.5); MEAN CORPUSCULAR HEMOGLOBIN 30.9 pg (27.0-33.0); MEAN CORPUSCULAR HGB CONC 32.3 g/dl (32.0-36.5); MEAN CORPUSCULAR VOLUME 95.6 fl (80.0-96.0); PLATELET COUNT, AUTOMATED 232 10^3/uL (150-450); RED BLOOD COUNT 3.43 10^6/uL (4.00-5.40); WHITE BLOOD COUNT 7.4 10^3/uL (4.0-10.0)
[2019-03-27 07:01] LABS: ALBUMIN 2.9 GM/DL (3.2-5.2); ALT/SGPT 16 U/L (12-78); BILIRUBIN,TOTAL 0.3 MG/DL (0.2-1.0); BLOOD UREA NITROGEN 20 MG/DL (7-18); CALCIUM LEVEL 8.5 MG/DL (8.8-10.2); CARBON DIOXIDE LEVEL 29 MEQ/L (21-32); CHLORIDE LEVEL 107 MEQ/L (98-107); CREATININE FOR GFR 0.79 MG/DL (0.55-1.30); GLOMERULAR FILTRATION RATE > 60.0 (>32); GLUCOSE, FASTING 83 MG/DL (70-100); POTASSIUM SERUM 4.5 MEQ/L (3.5-5.1); SODIUM LEVEL 143 MEQ/L (136-145); TOTAL PROTEIN 5.8 GM/DL (6.4-8.2)
[2019-03-27] MEDS: BUDESONIDE 0.5 MG/2 ML INHALATION SUSPENSION INH SCH ×2 (08:00→19:58)
[2019-03-27] MEDS ORDERED: VERAPAMIL 120 MG SR TAB XX SCH (09:00)
[2019-03-27] MEDS: PANTOPRAZOLE 40MG INJ (PROTONIX) (C9113) IV SCH (09:35)
[2019-03-27] MEDS: LORazepam 2 MG/ML VIAL (J2060) IV SCH ×2 (09:35→20:49)
[2019-03-27] MEDS: BRIMONIDINE 0.1% OPHTH SOLN 5 ML OU SCH ×2 (09:37→20:49)
[2019-03-27] MEDS: TIOTROPIUM INHALER/CAPSULE (SPIRIVA) INH SCH (11:42)
[2019-03-27] MEDS: CIPROFLOXACIN 400 MG in APPROPRIATE DILUENT 1 EA IV SCH (13:17)
--- NOTE | 2019-03-27 13:55 | IPNPDOC ---
Subjective General Date/Time Seen The patient was seen on 03/27/19 at 13:51. Subject Chief Complaint/History The patient is a 83-year-old female admitted with a reason for visit of Small Bowel Obstruction. Patient reports feeling mildly better. No longer nauseated with still having some minimal leftover discomfort on her right lower quadrant area. The epigastric discomfort she initially felt with seems to have resolved. We are not draining much from the nasogastric tube with her abdomen feels much softer. She denies passing flatus and her having bowel movements. Current Medications Current Medications Current Medications Albuterol Sulfate (Proventil Neb) 2.5 mg Q4HP PRN NEB SOB/WHEEZING; Start 03/26/19 at 20:15 Brimonidine Tartrate (Alphagan P 0.1%) 1 drop BID OU Last administered on 03/27/19at 09:37; Start 03/26/19 at 21:00 Budesonide (Pulmicort) 0.5 mg RBID INH ; Start 03/27/19 at 08:00 Ciprofloxacin 400 mg/IV Miscellaneous Supplies 200 ml @ 200 mls/hr Q12H IV Last administered on 03/27/19at 13:17; Start 03/27/19 at 13:00 Diatrizoate Meglum/ Diatrizoate Sod (Gastrografin) 10 ml Q30M PO Last administered on 03/26/19at 00:21; Start 03/25/19 at 23:15; Stop 03/25/19 at 23:46; Status DC Home Med (Med Rec Complete!) ASDIRECTED XX ; Start 03/26/19 at 06:00; Stop 03/26/19 at 06:00; Status DC Latanoprost (Xalatan 0.005% Op Soln) 1 drop QHS OU Last administered on 03/26/19at 23:20; Start 03/26/19 at 21:00 Lorazepam (Ativan) 0.5 mg BID IV Last administered on 03/27/19at 09:35; Start 03/26/19 at 21:00 Metronidazole 500 mg/IV Miscellaneous Supplies 100 ml @ 100 mls/hr Q8H IV ; Start 03/27/19 at 14:00 Miscellaneous (Unresolved Patient Own Med Order) SEE LABEL COMMENTS DAILY XX ; Start 03/26/19 at 09:00 Morphine Sulfate (Morphine Sulfate Inj) 2 mg Q4HP PRN IV PAIN Last administered on 03/26/19at 23:06; Start 03/26/19 at 06:00 Ondansetron HCl (ZOFRAN INJection) 2 mg Q4HP PRN IV NAUSEA OR VOMITING Last administered on 03/26/19at 23:05; Start 03/26/19 at 06:00 Pantoprazole Sodium (Protonix) 40 mg DAILY IV Last administered on 03/27/19at 0 9:35; Start 03/27/19 at 09:00 Patient Own Medication (Patient'S Own Med) 1 CAP DAILY (180MG) DAILY PO ; Start 03/27/19 at 09:00; Status UNV Sodium Chloride 1,000 ml @ 100 mls/hr Q10H IV ; Start 03/26/19 at 05:28; Stop 03/26/19 at 05:58; Status DC Sodium Chloride 1,000 ml @ 100 mls/hr Q10H IV Last administered on 03/27/19at 13:17; Start 03/26/19 at 06:00 Tiotropium [place] (Spiriva Handihaler) 1 inhalation DAILY INH ; Start 03/27/19 at 09:00 Verapamil HCl (Isoptin-Sr, Calan Sr) 180 mg DAILY XX ; Start 03/27/19 at 09:00; Stop 03/27/19 at 09:00; Status DC Allergies Coded Allergies: Sulfa (Sulfonamide Antibiotics) (Verified Adverse Reaction, Mild, nausea, 03/25/19) aspirin (Verified Adverse Reaction, Mild, nausea, 03/25/19) Objective Physical Examination Examination GENERAL APPEARANCE: Looks much more comfortable today. SKIN: Warm and dry. HEENT: Mild pale palpebral conjunctiva. Nasogastric tube in place seems to be working. Only at 50 cm. Minimal output that does not look bilious. NECK: Supple, no thyromegaly. No obvious jugular venous distention. LUNGS: Clear to auscultation bilaterally. No wheezing appreciated. HEART: No chest wall abnormalities. Regular rate and rhythm with no murmurs appreciated. ABDOMEN: Abdomen is a lot softer today than it was yesterday. Nontender on palpation, soft, still mildly distended. . EXTREMITIES: No edema. Vital Signs Vital Signs Date Time Temp Pulse Resp B/P (MAP) Pulse Ox O2 Delivery O2 Flow Rate FiO2 7/20/19 09:00 2.0 03/27/19 06:00 98.0 92 17 116/61 (79) 98 03/26/19 07:53 Room Air I&Os I&O- Last 24 Hours up to 6 AM 03/27/19 06:00 Intake Total 1400 ml Output Total 2150 ml Balance -750 ml Laboratory Data Labs 24H Laboratory Tests 2 03/27/19 06:10: Nucleated Red Blood Cells % (auto) 0.0, Anion Gap 7L, Glomerular Filtration Rate > 60.0, Blood Urea Nitrogen 20H, Creatinine 0.79, Sodium Level 143, Potassium Level 4.5, Chloride Level 107, Carbon Dioxide Level 29, Calcium Level 8.5L, Aspartate Amino Transf (AST/SGOT) 22, Alanine Aminotransferase (ALT/SGPT) 16, Alkaline Phosphatase 71, Total Bilirubin 0.3, Total Protein 5.8#L, Albumin 2.9#L, Magnesium Level 2.0, Albumin/Globulin Ratio 1.00 CBC/BMP Laboratory Tests 03/27/19 06:10 Red Blood Count 3.43 L, Mean Corpuscular Volume 95.6, Mean Corpuscular Hemoglobin 30.9, Mean Corpuscular Hemoglobin Concent 32.3, Red Cell Distribution Width 14.7 H, Calcium Level 8.5 L, Aspartate Amino Transf (AST/SGOT) 22, Alanine Aminotransferase (ALT/SGPT) 16, Alkaline Phosphatase 71, Total Bilirubin 0.3, Total Protein 5.8 #L, Albumin 2.9 #L Impression Small bowel obstruction related to inflammation at the terminal ileum I will start her on Cipro and Flagyl for possibility that this is an acute infection. Other differentials include inflammatory bowel disease, less so neoplastic. She does have some evidence of constipation so I will give her a Fleet's enema. Her abdomen feels much flatter, soft. In my initial examination to despite the nasogastric tube not draining much, I think it is able to at least relieve the distention of the stomach which because of her hiatal hernia is causing her some discomfort from the gastric distention. She is willing to ambulate and have encouraged her to do that. I'll arrange for a CT Enterographyt to further evaluate no family figure out the nature of the inflammation at the terminal ileum. Plan / VTE VTE Prophylaxis Ordered?: Yes OVI MATHIAS MD Mar 27, 2019 13:54
[2019-03-27 14:00] VITALS: BP 121/64
[2019-03-27] MEDS ORDERED: FLEET ENEMA PR ONE (14:00)
[2019-03-27] MEDS: metroNIDAZOLE 500 MG in APPROPRIATE DILUENT 1 EA IV SCH ×2 (14:46→22:13)
--- NOTE | 2019-03-27 18:19 | IPNPDOC ---
Text Note Date of Service The patient was seen on 03/27/19. NOTE S: patient states still with abdomen pain RLQ but no nausea, no vomiting. NGT intact. states feels constipated and "impacted" similar to earlier this year. States requested nebs but not "ordered". States last night humidity made her more SOB. currently denies SOB, CP, N,V; O:Vitals as below General: pleasant, mild distress, lying on side HRRR LCTA no W/R/R Ext: no edema Abdomen: soft RLQ tenderness , palpable mass (stool?), +guarding, no rebound, no rigidity A/P: Small Bowel obstruction - surgery consulted and managing. Currently with fleets, enema, etc Hypertension- restart verapamil (medication from home) and clamp NGT for absorption. if unable to control HR/BP with oral meds, will need transferred to PCU for IV medications 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 - continue with spiriva, pulmicort and prn albuterol; orders verified and discussed with staff; add fomoderol Anxiety - patient on alf low dose xanax BID - to avoid withdraw - will start scheduled ativan 0.5mg IV BID (hold for sedation,lethargy) VS,Fishbone, I+O VS, Fishbone, I+O Laboratory Tests 03/27/19 06:10 Red Blood Count 3.43 L, Mean Corpuscular Volume 95.6, Mean Corpuscular Hemoglobin 30.9, Mean Corpuscular Hemoglobin Concent 32.3, Red Cell Distribution Width 14.7 H, Calcium Level 8.5 L, Aspartate Amino Transf (AST/SGOT) 22, Alanine Aminotransferase (ALT/SGPT) 16, Alkaline Phosphatase 71, Total Bilirubin 0.3, Total Protein 5.8 #L, Albumin 2.9 #L Vital Signs Date Time Temp Pulse Resp B/P (MAP) Pulse Ox O2 Delivery O2 Flow Rate FiO2 03/27/19 09:00 2.0 03/27/19 06:00 98.0 92 17 116/61 (79) 98 03/26/19 07:53 Room Air I&O- Last 24 Hours up to 6 AM 03/27/19 05:59 Intake Total 1400 ml Output Total 2100 ml Balance -700 ml CAREY PONCE DO Mar 27, 2019 12:35
[2019-03-27] MEDS: FORMOTEROL FUMARATE 20 MCG/2 ML INHALATION SOLUTION (PERFOROMIST) INH SCH (19:58)
[2019-03-27] MEDS: LATANOPROST 0.005% OPHTH SOLN 2.5 ML OU SCH (20:49)
[2019-03-27 22:00] VITALS: BP 127/68
[2019-03-28] MEDS: NS 1,000 ML IV SCH ×3 (00:10→18:00)
[2019-03-28] MEDS: CIPROFLOXACIN 400 MG in APPROPRIATE DILUENT 1 EA IV SCH ×2 (01:02→12:31)
[2019-03-28] MEDS: metroNIDAZOLE 500 MG in APPROPRIATE DILUENT 1 EA IV SCH ×2 (05:22→14:17)
[2019-03-28 06:00] VITALS: BP 126/61
--- NOTE | 2019-03-28 07:23 | REP ---
ABDOMINAL SERIES: Supine and erect views of the abdomen and pelvis demonstrate no free air. There are again moderately dilated small bowel loops in the abdomen. The caliber is similar to the prior study of 03/26/2019. Contrast in the small bowel has now passed into the right colon indicating that this is not a complete small bowel obstruction. Nasogastric tube is seen with the distal end coiled in a hiatal hernia. Electronically Signed by Chago Yin MD 03/28/2019 10:21 P
[2019-03-28] MEDS: TIOTROPIUM INHALER/CAPSULE (SPIRIVA) INH SCH (07:48)
[2019-03-28] MEDS: BUDESONIDE 0.5 MG/2 ML INHALATION SUSPENSION INH SCH ×2 (07:48→19:54)
[2019-03-28] MEDS: FORMOTEROL FUMARATE 20 MCG/2 ML INHALATION SOLUTION (PERFOROMIST) INH SCH ×2 (07:48→19:54)
[2019-03-28] MEDS: VERAPAMIL 180 MG PO SCH (09:00)
[2019-03-28] MEDS: PANTOPRAZOLE 40MG INJ (PROTONIX) (C9113) IV SCH (10:03)
[2019-03-28] MEDS: BRIMONIDINE 0.1% OPHTH SOLN 5 ML OU SCH (10:03)
[2019-03-28] MEDS: LORazepam 2 MG/ML VIAL (J2060) IV SCH (10:03)
--- NOTE | 2019-03-28 13:08 | IPNPDOC ---
Text Note Date of Service The patient was seen on 03/28/19. NOTE S:daughter present in room. patient has not yet started home dose of verapamil (to be brought in from home-not available in pharmacy). Patient states passed gas and a stool earlier today. abdomen pain not as severe. no nausea, no vomiting. no CP, no SOB. Being seen for partial SBO, HTN and COPD without exacerbation O: Vitals as below General: pleasant, NAD AAOx3 HEENT: NGT intact, no drainage HRRR no murmur LCTA no W/R/R Abdomen soft NT ND no palpable RLQ mass today, NABS Ext no edema no labs today for review. A/P: Partial Small Bowel obstruction - surgery consulted and managing. Currently with fleets, enema, etc XRAY with passage of contrast. CT ABD/PEL in AM per surgery Hypertension- restart verapamil (medication from home) and clamp NGT for absorpt ion. if unable to control HR/BP with oral meds, will need transferred to PCU for IV medications 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 - continue with spiriva, pulmicort and prn albuterol; orders verified and discussed with staff; add fomoderol Anxiety - patient on vermin exterminator low dose xanax BID - to avoid withdraw - continue scheduled ativan 0.5mg IV BID (hold for sedation,lethargy) VS,Fishbone, I+O VS, Fishbone, I+O Vital Signs Date Time Temp Pulse Resp B/P (MAP) Pulse Ox O2 Delivery O2 Flow Rate FiO2 03/28/19 06:00 97.1 75 18 126/61 (82) 98 03/27/19 20:54 2.0 03/26/19 07:53 Room Air I&O- Last 24 Hours up to 6 AM 03/28/19 06:00 Intake Total 2700 ml Output Total 1150 ml Balance 1550 ml CAREY PONCE DO Mar 28, 2019 11:45
[2019-03-28 14:00] VITALS: BP 156/69
[2019-03-28] MEDS: MORPHINE 4 MG/ML 1ML VIAL/SYRINGE (J2270) IV PRN (14:19)
--- NOTE | 2019-03-28 15:47 | IPNPDOC ---
Subjective General Date/Time Seen The patient was seen on 03/28/19 at 15:32. Subject Chief Complaint/History The patient is a 83-year-old female admitted with a reason for visit of Small Bowel Obstruction. Patient reports still with mild right lower quadrant discomfort. NGT in place draining minimally. She denies passing flatus though she has had small liquid bowel movements. Denies any further epigastric discomfort, nausea. Current Medications Current Medications Current Medications Albuterol Sulfate (Proventil Neb) 2.5 mg Q4HP PRN NEB SOB/WHEEZING; Start 03/26/19 at 20:15 Brimonidine Tartrate (Alphagan P 0.1%) 1 drop BID OU Last administered on 03/28/19at 10:03; Start 03/26/19 at 21:00 Budesonide (Pulmicort) 0.5 mg RBID INH Last administered on 03/28/19at 07:48; Start 03/27/19 at 08:00 Ciprofloxacin 400 mg/IV Miscellaneous Supplies 200 ml @ 200 mls/hr Q12H IV Last administered on 03/28/19at 12:31; Start 03/27/19 at 13:00 Diatrizoate Meglum/ Diatrizoate Sod (Gastrografin) 10 ml Q30M PO Last admini stered on 03/26/19at 00:21; Start 03/25/19 at 23:15; Stop 03/25/19 at 23:46; Status DC Formoterol Fumarate (Perforomist) 20 mcg RBID INH Last administered on 03/28/19at 07:48; Start 03/27/19 at 20:00 Home Med (Med Rec Complete!) ASDIRECTED XX ; Start 03/26/19 at 06:00; Stop 03/26/19 at 06:00; Status DC Latanoprost (Xalatan 0.005% Op Soln) 1 drop QHS OU Last administered on at 20:49; Start 03/26/19 at 21:00 Lorazepam (Ativan) 0.5 mg BID IV Last administered on 03/28/19at 10:03; Start 03/26/19 at 21:00 Metronidazole 500 mg/IV Miscellaneous Supplies 100 ml @ 100 mls/hr Q8H IV Last administered on 03/28/19at 14:17; Start 03/27/19 at 14:00 Miscellaneous (Unresolved Patient Own Med Order) SEE LABEL COMMENTS DAILY XX ; Start 03/26/19 at 09:00 Morphine Sulfate (Morphine Sulfate Inj) 2 mg Q4HP PRN IV PAIN Last administered on 03/28/19at 14:19; Start 03/26/19 at 06:00 Ondansetron HCl (ZOFRAN INJection) 2 mg Q4HP PRN IV NAUSEA OR VOMITING Last administered on 03/26/19at 23:05; Start 03/26/19 at 06:00 Pantoprazole Sodium (Protonix) 40 mg DAILY IV Last administered on 03/28/19at 10:03; Start 03/27/19 at 09:00 Patient Own Medication (Patient'S Own Med) 1 CAP DAILY (180... DAILY PO ; Start 03/27/19 at 09:00; Status UNV Sodium Chloride 1,000 ml @ 100 mls/hr Q10H IV ; Start 03/26/19 at 05:28; Stop 03/26/19 at 05:58; Status DC Sodium Chloride 1,000 ml @ 100 mls/hr Q10H IV Last administered on 03/28/19at 12:31; Start 03/26/19 at 06:00 Tiotropium [place] (Spiriva Handihaler) 1 inhalation DAILY INH ; Start 03/27/19 at 09:00 Verapamil HCl (Isoptin-Sr, Calan Sr) 180 mg DAILY XX ; Start 03/27/19 at 09:00; Stop 03/27/19 at 09:00; Status DC Allergies Coded Allergies: Sulfa (Sulfonamide Antibiotics) (Verified Adverse Reaction, Mild, nausea, 03/25/19) aspirin (Verified Adverse Reaction, Mild, nausea, 03/25/19) Objective Physical Examination Examination GENERAL APPEARANCE: comfortable. HEENT: NGT in place 50 cms at nares. minimal drainage. NECK: Supple, no thyromegaly. No obvious jugular venous distention. LUNGS: Clear to auscultation bilaterally. No wheezing appreciated. HEART: No chest wall abnormalities. Regular rate and rhythm with no murmurs appreciated. ABDOMEN: Abdomen is mildly distended, seems more distended today than yesterday, soft, mild tenderness on palpation over right lower quadrant area, no guarding. EXTREMITIES: Extremities have no deformities. No edema identified. Vital Signs Vital Signs Date Time Temp Pulse Resp B/P (MAP) Pulse Ox O2 Delivery O2 Flow Rate FiO2 03/28/19 14:19 16 03/28/19 09:00 2.0 03/28/19 06:00 97.1 75 126/61 (82) 98 03/26/19 07:53 Room Air I&Os I&O- Last 24 Hours up to 6 AM 03/28/19 06:00 Intake Total 2700 ml Output Total 1150 ml Balance 1550 ml Impression Small bowel obstruction related to inflammation at the terminal ileum .Patient is stable, still with right lower quadrant discomfort and tenderness. Abdomen is mildly distended, with partial sbo. This seems to be from an inflamed portion of the terminal ileum. I ahve set her up for CT enterography fro tomorrow am. (Apparently we are not able to do the CT protocol on a weekend). Depending on findings may need surgery if suspicious for malignancy vs steroids if possibility of IBD. But essentially if obstruction not resolved adequately may still need surgery. Plan / VTE VTE Prophylaxis Ordered?: Yes OVI MATHIAS MD Mar 28, 2019 15:47
[2019-03-28 22:00] VITALS: BP 150/67
[2019-03-29] MEDS: metroNIDAZOLE 500 MG in APPROPRIATE DILUENT 1 EA IV SCH ×4 (00:28→21:12)
[2019-03-29] MEDS: LORazepam 2 MG/ML VIAL (J2060) IV SCH ×2 (00:28→08:46)
[2019-03-29] MEDS: LATANOPROST 0.005% OPHTH SOLN 2.5 ML OU SCH ×2 (00:29→21:08)
[2019-03-29] MEDS: NS 1,000 ML IV SCH ×2 (00:29→21:07)
[2019-03-29] MEDS: BRIMONIDINE 0.1% OPHTH SOLN 5 ML OU SCH ×3 (00:29→21:08)
[2019-03-29] MEDS: CIPROFLOXACIN 400 MG in APPROPRIATE DILUENT 1 EA IV SCH ×2 (00:38→13:51)
[2019-03-29 06:00] VITALS: BP 150/70
[2019-03-29 06:45] LABS: HEMATOCRIT 29.5 % (36.0-47.0); HEMOGLOBIN 9.5 g/dl (12.0-15.5); MEAN CORPUSCULAR HEMOGLOBIN 30.6 pg (27.0-33.0); MEAN CORPUSCULAR HGB CONC 32.2 g/dl (32.0-36.5); MEAN CORPUSCULAR VOLUME 95.2 fl (80.0-96.0); PLATELET COUNT, AUTOMATED 177 10^3/uL (150-450); WHITE BLOOD COUNT 6.4 10^3/uL (4.0-10.0)
[2019-03-29 07:14] LABS: ALBUMIN 2.7 GM/DL (3.2-5.2); ALT/SGPT 12 U/L (12-78); BILIRUBIN,TOTAL 0.4 MG/DL (0.2-1.0); BLOOD UREA NITROGEN 9 MG/DL (7-18); CALCIUM LEVEL 8.1 MG/DL (8.8-10.2); CARBON DIOXIDE LEVEL 29 MEQ/L (21-32); CHLORIDE LEVEL 105 MEQ/L (98-107); CREATININE FOR GFR 0.53 MG/DL (0.55-1.30); GLOMERULAR FILTRATION RATE > 60.0 (>32); GLUCOSE, FASTING 76 MG/DL (70-100); POTASSIUM SERUM 3.1 MEQ/L (3.5-5.1); SODIUM LEVEL 141 MEQ/L (136-145); TOTAL PROTEIN 5.4 GM/DL (6.4-8.2)
[2019-03-29] MEDS ORDERED: ISOVUE-370 76% 100ML VIAL (Q9967) As Ordered ONE (07:45)
[2019-03-29] MEDS ORDERED: VoLumen 0.1% SUSPENSION 450ML BOTTLE As Ordered ONE ×2 (07:47→10:10)
[2019-03-29] MEDS: BUDESONIDE 0.5 MG/2 ML INHALATION SUSPENSION INH SCH ×3 (07:52→20:03)
[2019-03-29] MEDS: FORMOTEROL FUMARATE 20 MCG/2 ML INHALATION SOLUTION (PERFOROMIST) INH SCH ×3 (07:52→20:03)
[2019-03-29] MEDS: PANTOPRAZOLE 40MG INJ (PROTONIX) (C9113) IV SCH (08:46)
[2019-03-29] MEDS: VERAPAMIL 180 MG PO SCH (09:00)
[2019-03-29] MEDS: TIOTROPIUM INHALER/CAPSULE (SPIRIVA) INH SCH (09:08)
[2019-03-29] MEDS ORDERED: GLUCAGON FOR INJ 1 MG VIAL (J1610) As Ordered ONE (11:31)
[2019-03-29] MEDS: KCL 10MEQ/100ML SWI (KRUN) 10 MEQ in APPROPRIATE DILUENT 1 EA IV SCH ×3 (12:01→18:30)
[2019-03-29 12:54] VITALS: BP 135/82
--- NOTE | 2019-03-29 13:36 | IPNPDOC ---
Subjective General Date/Time Seen The patient was seen on 03/29/19 at 13:35. Subject Chief Complaint/History The patient is a 83-year-old female admitted with a reason for visit of Small Bowel Obstruction. She looks comfortable though she still has some mild discomfort on the right lower quadrant. It seems to be persistent despite her having loose bowel movements. She's been afebrile. Current Medications Current Medications Current Medications Albuterol Sulfate (Proventil Neb) 2.5 mg Q4HP PRN NEB SOB/WHEEZING; Start 03/26/19 at 20:15 Brimonidine Tartrate (Alphagan P 0.1%) 1 drop BID OU Last administered on 03/29/19 08:46; Start 03/26/19 at 21:00 Budesonide (Pulmicort) 0.5 mg RBID INH Last administered on 03/29/19at 09:07; Start 03/27/19 at 08:00 Ciprofloxacin 400 mg/IV Miscellaneous Supplies 200 ml @ 200 mls/hr Q12H IV Last administered on 03/29/19at 00:38; Start 03/27/19 at 13:00 Diatrizoate Meglum/ Diatrizoate Sod (Gastrografin) 10 ml Q30M PO Last administered on 03/26/19at 00:21; Start 03/25/19 at 23:15; Stop 03/25/19 at 23:46; Status DC Formoterol Fumarate (Perforomist) 20 mcg RBID INH Last administered on 03/29/19at 09:08; Start 03/27/19 at 20:00 Home Med (Med Rec Complete!) ASDIRECTED XX ; Start 03/26/19 at 06:00; Stop 03/26/19 at 06:00; Status DC Latanoprost (Xalatan 0.005% Op Soln) 1 drop QHS OU Last administered on 03/29/19at 00:29; Start 03/26/19 at 21:00 Lorazepam (Ativan) 0.5 mg BID IV Last administered on 03/29/19at 08:46; Start 03/26/19 at 21:00 Metronidazole 500 mg/IV Miscellaneous Supplies 100 ml @ 100 mls/hr Q8H IV Last administered on 03/29/19at 06:33; Start 03/27/19 at 14:00 Miscellaneous (Unresolved Patient Own Med Order) SEE LABEL COMMENTS DAILY XX ; Start 03/26/19 at 09:00; Stop 03/28/19 at 16:03; Status DC Morphine Sulfate (Morphine Sulfate Inj) 2 mg Q4HP PRN IV PAIN Last administered on 03/28/19at 14:19; Start 03/26/19 at 06:00 Ondansetron HCl (ZOFRAN INJection) 2 mg Q4HP PRN IV NAUSEA OR VOMITING Last administered on 03/26/19at 23:05; Start 03/26/19 at 06:00 Pantoprazole Sodium (Protonix) 40 mg DAILY IV Last administered on 03/29/19at 08:46; Start 03/27/19 at 09:00 Patient Own Medication (Patient'S Own Med) VERAPAMIL SR 180MG - 1 CAP DAILY DAILY PO ; Start 03/28/19 at 09:00 Potassium Chloride 10 meq/ IV Miscellaneous Supplies 100 ml @ 100 mls/hr Q1H IV Last administered on 03/29/19at 12:01; Start 03/29/19 at 11:00; Stop 03/29/19 at 13:59 Sodium Chloride 1,000 ml @ 100 mls/hr Q10H IV ; Start 03/26/19 at 05:28; Stop 03/26/19 at 05:58; Status DC Sodium Chloride 1,000 ml @ 100 mls/hr Q10H IV Last administered on 03/29/19at 00:29; Start 03/26/19 at 06:00 Tiotropium [place] (Spiriva Handihaler) 1 inhalation DAILY INH Last administered on 03/29/19at 09:08; Start 03/27/19 at 09:00 Verapamil HCl (Isoptin-Sr, Calan Sr) 180 mg DAILY XX ; Start 03/27/19 at 09:00; Stop 03/27/19 at 09:00; Status DC Allergies Coded Allergies: Sulfa (Sulfonamide Antibiotics) (Verified Adverse Reaction, Mild, nausea, 03/25/19) aspirin (Verified Adverse Reaction, Mild, nausea, 03/25/19) Objective Physical Examination Examination GENERAL APPEARANCE: Comfortable. LUNGS: Clear to auscultation bilaterally. No wheezing appreciated. HEART: No chest wall abnormalities. Regular rate and rhythm with no murmurs appreciated. ABDOMEN: Abdomen is minimally distended, soft, mild tenderness only on direct palpation over the right lower quadrant area without guarding. EXTREMITIES: No edema. Vital Signs Vital Signs Date Time Temp Pulse Resp B/P (MAP) Pulse Ox O2 Delivery O2 Flow Rate FiO2 03/29/19 12:54 98.1 84 18 135/82 (99) 97 2.0 03/26/19 07:53 Room Air I&Os I&O- Last 24 Hours up to 6 AM 03/29/19 06:00 Intake Total 2500 ml Output Total 1555 ml Balance 945 ml Laboratory Data Labs 24H Laboratory Tests 2 03/29/19 05:53: Nucleated Red Blood Cells % (auto) 0.0, Anion Gap 7L, Glomerular Filtration Rate > 60.0, Blood Urea Nitrogen 9#, Creatinine 0.53L, Sodium Level 141, Potassium Level 3.1#L, Chloride Level 105, Carbon Dioxide Level 29, Calcium Level 8.1L, Aspartate Amino Transf (AST/SGOT) 21, Alanine Aminotransferase (ALT/SGPT) 12, Alkaline Phosphatase 67, Total Bilirubin 0.4, Total Protein 5.4L, Albumin 2.7L, Albumin/Globulin Ratio 1.00 CBC/BMP Laboratory Tests 03/29/19 05:53 Red Blood Count 3.10 L, Mean Corpuscular Volume 95.2, Mean Corpuscular Hemoglobin 30.6, Mean Corpuscular Hemoglobin Concent 32.2, Red Cell Distribution Width 14.2, Calcium Level 8.1 L, Aspartate Amino Transf (AST/SGOT) 21, Alanine Aminotransferase (ALT/SGPT) 12, Alkaline Phosphatase 67, Total Bilirubin 0.4, Total Protein 5.4 L, Albumin 2.7 L Impression Small bowel obstruction seems to be partially and seems to be resolving Terminal ileitis She set up for a CT enterography today to evaluate that area of the terminal ileum possibility that this is inflammatory bowel disease versus neoplastic. Have allowed her to have the nasogastric tube removal was is not draining much. This is just located in the patient's portion of the stomach with that is within her hiatal hernia. We'll await the results of the study. If there is evidence that this is inflammatory nature may need a dose of steroids for suspicion of possible Crohn's disease. Plan / VTE VTE Prophylaxis Ordered?: Yes OVI MATHIAS MD Mar 29, 2019 13:36
[2019-03-29 14:00] VITALS: BP 123/71
[2019-03-29] MEDS ORDERED: KCL 10MEQ IN STERILE WATER 100ML As Ordered ONE ×2 (17:24→18:28)
--- NOTE | 2019-03-29 19:18 | IPNPDOC ---
Text Note Date of Service The patient was seen on 03/29/19. NOTE S: pateint states increased diarrhea after CT w contrast scan. minimal abdomen pain. no N, no V. she is glad to have NGT out. States she is looking forward to going home O: Vitals as below HRRR no murmur LCTA no W/R/R Abdomen soft NT ND NABS Ext no edema A/P: Partial Small Bowel obstruction with Terminal ileitis -IMPROVING; currently on flagyl and cipro since 03/27/19; surgery consulted and managing. CT ABD/PEL pending. CRP pending and may need to consider possible steroids for inflammatory component; reina removed. 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 - continue with spiriva, pulmicort, fomotoral neb and prn albuterol; Anxiety - patient on terminal superintendent low dose xanax BID - continue medication VS,Fishbone, I+O VS, Fishbone, I+O Laboratory Tests 03/29/19 05:53 Red Blood Count 3.10 L, Mean Corpuscular Volume 95.2, Mean Corpuscular Hemoglobin 30.6, Mean Corpuscular Hemoglobin Concent 32.2, Red Cell Distribution Width 14.2, Calcium Level 8.1 L, Aspartate Amino Transf (AST/SGOT) 21, Alanine Aminotransferase (ALT/SGPT) 12, Alkaline Phosphatase 67, Total Bilirubin 0.4, Total Protein 5.4 L, Albumin 2.7 L Vital Signs Date Time Temp Pulse Resp B/P (MAP) Pulse Ox O2 Delivery O2 Flow Rate FiO2 03/29/19 14:00 97.6 86 18 123/71 (88) 96 2.0 03/26/19 07:53 Room Air I&O- Last 24 Hours up to 6 AM 03/29/19 06:00 Intake Total 2500 ml Output Total 1555 ml Balance 945 ml CAREY PONCE DO Mar 29, 2019 19:18
[2019-03-29 20:00] VITALS: BP 162/84
[2019-03-29] MEDS ORDERED: POTASSIUM CHLORIDE 10 MEQ SR TABLET PO ONE (20:00)
[2019-03-29] MEDS: ALPRAZolam 0.25 MG TAB PO SCH (21:12)
[2019-03-30] MEDS: CIPROFLOXACIN 400 MG in APPROPRIATE DILUENT 1 EA IV SCH ×2 (00:15→12:28)
[2019-03-30] MEDS: metroNIDAZOLE 500 MG in APPROPRIATE DILUENT 1 EA IV SCH ×3 (05:10→21:12)
[2019-03-30 06:00] VITALS: BP 124/60
[2019-03-30 06:49] LABS: HEMATOCRIT 30.2 % (36.0-47.0); HEMOGLOBIN 10.1 g/dl (12.0-15.5); MEAN CORPUSCULAR HEMOGLOBIN 30.9 pg (27.0-33.0); MEAN CORPUSCULAR HGB CONC 33.4 g/dl (32.0-36.5); MEAN CORPUSCULAR VOLUME 92.4 fl (80.0-96.0); PLATELET COUNT, AUTOMATED 186 10^3/uL (150-450); RED BLOOD COUNT 3.27 10^6/uL (4.00-5.40); WHITE BLOOD COUNT 6.4 10^3/uL (4.0-10.0)
[2019-03-30] MEDS: TIOTROPIUM INHALER/CAPSULE (SPIRIVA) INH SCH (07:04)
[2019-03-30 07:19] LABS: ALBUMIN 2.8 GM/DL (3.2-5.2); ALT/SGPT 13 U/L (12-78); BILIRUBIN,TOTAL 0.5 MG/DL (0.2-1.0); BLOOD UREA NITROGEN 5 MG/DL (7-18); C REACTIVE PROTEIN QUANTITATIV 2.65 MG/DL (0.00-0.30); CALCIUM LEVEL 8.3 MG/DL (8.8-10.2); CARBON DIOXIDE LEVEL 30 MEQ/L (21-32); CHLORIDE LEVEL 105 MEQ/L (98-107); CREATININE FOR GFR 0.64 MG/DL (0.55-1.30); GLOMERULAR FILTRATION RATE > 60.0 (>32); GLUCOSE, FASTING 90 MG/DL (70-100); POTASSIUM SERUM 3.6 MEQ/L (3.5-5.1); SODIUM LEVEL 140 MEQ/L (136-145); TOTAL PROTEIN 5.6 GM/DL (6.4-8.2)
[2019-03-30] MEDS: VERAPAMIL 180 MG PO SCH (08:25)
[2019-03-30] MEDS: ALPRAZolam 0.25 MG TAB PO SCH ×2 (08:25→21:11)
[2019-03-30] MEDS: PANTOPRAZOLE 40MG INJ (PROTONIX) (C9113) IV SCH (08:26)
[2019-03-30] MEDS: BRIMONIDINE 0.1% OPHTH SOLN 5 ML OU SCH ×2 (08:27→21:00)
--- NOTE | 2019-03-30 08:38 | REP ---
CT ENTEROGRAPHY ABDOMEN AND PELVIS WITH ORAL AND IV CONTRAST: CT enterography performed following the intravenous administration of 100 mL of Isovue 370, in addition to oral contrast as per hospital protocol. The arterial phase and venous phase imaging is performed. Sagittal and coronal reconstruction images are performed. COMPARISON: 03/26/2019. There are small bilateral pleural effusions. There is mild adjacent atelectasis or infiltrate in the visualized lung bases. There is a large hiatal hernia. There is mild diffuse distention of small bowel loops with air and fluid. Previously noted oral contrast in the small bowel is now seen throughout the colon. There is mild diffuse mucosal thickening of small bowel. The pattern is most consistent with mild generalized ileus and enteritis. I see no colonic thickening. There are scattered diverticula throughout the sigmoid and left colon. There is no appendicitis. Mild diffuse free fluid is seen in the abdomen and pelvis. The liver, spleen, adrenals, pancreas are unremarkable. There are bilateral renal cysts again noted. There is a partially calcified mass in the right kidney unchanged since the prior CT of 06/30/2018. There is atherosclerotic calcification of the abdominal aorta without aneurysm. I see no adenopathy or free air. A Coates catheter is seen in the urinary bladder which contains a small amount of air and fluid. Since the prior study of 03/26/2019, the moderately dilated small bowel loops have decreased in caliber. IMPRESSION: Decreased caliber of small bowel loops. There is now mild distention of small bowel diffusely with air and fluid, with mild diffuse mucosal thickening. The findings currently are most consistent with a mild generalized ileus and enteritis. Multiple diverticula of the sigmoid and left colon. No appendicitis. Mild diffuse free fluid in the abdomen and pelvis. No free air. Small bilateral pleural effusions with mild adjacent atelectasis/infiltrate. Again noted is a partially calcified solid mass in the right kidney unchanged. Electronically Signed by Chago Yin MD 03/30/2019 05:05 P
[2019-03-30] MEDS: NS 1,000 ML IV SCH (09:22)
--- NOTE | 2019-03-30 09:53 | IPNPDOC ---
Subjective General Date/Time Seen The patient was seen on 03/30/19 at 09:48. Subject Chief Complaint/History The patient is a 83-year-old female admitted with a reason for visit of Small Bowel Obstruction. Patient denies any nausea or vomiting. She is tolerating clears. She reports poor to fair appetite. She is passing flatus and having loose bowel movements. She continues to report some right lower quadrant tenderness and discomfort. On further questioning this has been present for nearly a year now but used to come and go and has been persistent since her presentation for obstruction back in October in [place]. This seems to be no worse nor any better. Current Medications Current Medications Current Medications Albuterol Sulfate (Proventil Neb) 2.5 mg Q4HP PRN NEB SOB/WHEEZING; Start 03/26/19 at 20:15 Alprazolam (Xanax) 0.25 mg BID PO Last administered on 03/30/19at 08:25; Start 03/29/19 at 21:00 Brimonidine Tartrate (Alphagan P 0.1%) 1 drop BID OU Last administered on 03/30/19at 08:27; Start 03/26/19 at 21:00 Budesonide (Pulmicort) 0.5 mg RBID INH Last administered on 03/29/19at 20:03; Start 03/27/19 at 08:00 Ciprofloxacin 400 mg/IV Miscellaneous Supplies 200 ml @ 200 mls/hr Q12H IV Last administered on 03/30/19at 00:15; Start 03/27/19 at 13:00 Diatrizoate Meglum/ Diatrizoate Sod (Gastrografin) 10 ml Q30M PO Last administered on 03/26/19at 00:21; Start 03/25/19 at 23:15; Stop 03/25/19 at 23:46; Status DC Formoterol Fumarate (Perforomist) 20 mcg RBID INH Last administered on 03/29/19at 20:03; Start 03/27/19 at 20:00 Home Med (Med Rec Complete!) ASDIRECTED XX ; Start 03/26/19 at 06:00; Stop 03/26/19 at 06:00; Status DC Latanoprost (Xalatan 0.005% Op Soln) 1 drop QHS OU Last administered on 03/29/19at 21:08; Start 03/26/19 at 21:00 Lorazepam (Ativan) 0.5 mg BID IV Last administered on 03/29/19 08:46; Start 03/26/19 at 21:00; Stop 03/29/19 at 19:16; Status DC Metronidazole 500 mg/IV Miscellaneous Supplies 100 ml @ 100 mls/hr Q8H IV Last administered on 03/30/19 05:10; Start 03/27/19 at 14:00 Miscellaneous (Unresolved Patient Own Med Order) SEE LABEL COMMENTS DAILY XX ; Start 03/26/19 at 09:00; Stop 03/28/19 at 16:03; Status DC Morphine Sulfate (Morphine Sulfate Inj) 2 mg Q4HP PRN IV PAIN Last administered on 03/28/19 14:19; Start 03/26/19 at 06:00 Ondansetron HCl (ZOFRAN INJection) 2 mg Q4HP PRN IV NAUSEA OR VOMITING Last administered on 03/26/19 23:05; Start 03/26/19 at 06:00 Pantoprazole Sodium (Protonix) 40 mg DAILY IV Last administered on 03/30/19 08:26; Start 03/27/19 at 09:00 Patient Own Medication (Patient'S Own Med) VERAPAMIL SR 180MG - 1 CAP DAILY DAILY PO Last administered on 03/30/19 08:25; Start 03/28/19 at 09:00 Potassium Chloride 10 meq/ IV Miscellaneous Supplies 100 ml @ 100 mls/hr Q1H IV Last administered on 03/29/19 18:30; Start 03/29/19 at 11:00; Stop 03/29/19 at 13:59; Status DC Sodium Chloride 1,000 ml @ 100 mls/hr Q10H IV ; Start 03/26/19 at 05:28; Stop 03/26/19 at 05:58; Status DC Sodium Chloride 1,000 ml @ 100 mls/hr Q10H IV Last administered on 03/30/19 09:22; Start 03/26/19 at 06:00 Tiotropium [place] (Spiriva Handihaler) 1 inhalation DAILY INH Last adm inistered on 03/30/19 07:04; Start 03/27/19 at 09:00 Verapamil HCl (Isoptin-Sr, Calan Sr) 180 mg DAILY XX ; Start 03/27/19 at 09:00; Stop 03/27/19 at 09:00; Status DC Allergies Coded Allergies: Sulfa (Sulfonamide Antibiotics) (Verified Adverse Reaction, Mild, nausea, 03/25/19) aspirin (Verified Adverse Reaction, Mild, nausea, 03/25/19) Objective Physical Examination Examination GENERAL APPEARANCE: Overall looks comfortable. SKIN: Warm and dry. HEENT: NG tube has been removed. Wears O2 nasal cannula NECK: Supple, no thyromegaly. No obvious jugular venous distention. LUNGS: Clear to auscultation bilaterally. No wheezing appreciated. HEART: No chest wall abnormalities. Regular rate and rhythm with no murmurs appreciated. ABDOMEN: Abdomen is slightly rounded, prominent, mildly distended and tympanitic but has active bowel sounds, soft, mild tenderness in the palpation on the right lower quadrant area without any guarding. No associated hernia skin or soft tissue lesions in the area where she is hurting. EXTREMITIES: Extremities have no deformities. No edema identified. Vital Signs Vital Signs Date Time Temp Pulse Resp B/P (MAP) Pulse Ox O2 Delivery O2 Flow Rate FiO2 03/30/19 09:44 2.0 03/30/19 06:00 98.3 82 16 124/60 (81) 99 03/26/19 07:53 Room Air I&Os I&O- Last 24 Hours up to 6 AM 03/30/19 05:59 Intake Total 3320 ml Output Total 3700 ml Balance -380 ml Laboratory Data Labs 24H Laboratory Tests 2 03/30/19 06:15: Nucleated Red Blood Cells % (auto) 0.0, Anion Gap 5L, Glomerular Filtration Rate > 60.0, Blood Urea Nitrogen 5L, Creatinine 0.64, Sodium Level 140, Potassium Level 3.6, Chloride Level 105, Carbon Dioxide Level 30, Calcium Level 8.3L, Aspartate Amino Transf (AST/SGOT) 24, Alanine Aminotransferase (ALT/SGPT) 13, Alkaline Phosphatase 69, Total Bilirubin 0.5, Total Protein 5.6L, Albumin 2.8L, C-Reactive Protein, Quantitative 2.65H, Albumin/Globulin Ratio 1.00 CBC/BMP Laboratory Tests 03/30/19 06:15 Red Blood Count 3.27 L, Mean Corpuscular Volume 92.4, Mean Corpuscular Hemoglobin 30.9, Mean Corpuscular Hemoglobin Concent 33.4, Red Cell Distribution Width 14.0, Calcium Level 8.3 L, Aspartate Amino Transf (AST/SGOT) 24, Alanine Aminotransferase (ALT/SGPT) 13, Alkaline Phosphatase 69, Total Bilirubin 0.5, Total Protein 5.6 L, Albumin 2.8 L Impression Small bowel obstruction Terminal ileitis Clinically patient continues to do well. She still has some tenderness over her right lower quadrant area which seems to be tolerating clear liquids which I started her on last night. She is having loose stools and she is not nauseated. Her CT enterography took a while to be red but there were no signs of obstruction is probably some mild small bowel ileus with some evidence for small bowel enteritis. There were no suspicious neoplastic process seen at that area. I will advance her to soft diet today and see how she does. I want to treat the enteritis for possibility of inflammatory bowel disease but she is allergic to sulfa so I could not give her sulfasalazine. I'll try her on Entocort for short course roughly about 3-4 weeks. Prefers speaking to her daughter, she has brought her previous hospitalization record from [place] and it looks like she has had 2 episodes of severe anemia related to bleeding in 2018 and also in 2019. It seems she has 2 failed colonoscopies due to severe diverticulosis on her sigmoid colon this was followed with barium enema which did not reveal any masses. She's also had a capsule endoscopy done in 2018 till the results were not available patient will weight is is negative. 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 She has a known hiatal hernia. Plan / VTE VTE Prophylaxis Ordered?: Yes OVI MATHIAS MD Mar 30, 2019 09:53
[2019-03-30] MEDS: BUDESONIDE EC 3 MG CAP (ENTOCORT EC) PO SCH (11:45)
[2019-03-30 14:00] VITALS: BP 167/75
--- NOTE | 2019-03-30 14:12 | IPNPDOC ---
Subjective Date Seen The patient was seen on 03/30/19. Subjective Chief Complaint/HPI Patient seen and examined at bedside. She reports mild right lower quadrant tenderness to palpation. However, she states that she has been tolerating a clear liquid diet, and has been passing liquid bowel movements. Denies any nausea or vomiting. Objective Physical Examination General Exam: Positive: Alert, Cooperative, No Acute Distress ENT Exam: Positive: Atraumatic, Mucous membr. moist/pink Neck Exam: Negative: JVD Chest Exam: Positive: Clear to auscultation, Normal air movement Heart Exam: Positive: Rate Normal, Normal S1, Normal S2 Abdomen Exam: Positive: Soft, Tenderness (mild tenderness to deep palpation in the right lower quadrant. No rebound tenderness, guarding, or rigidity noted.) Extremity Exam: Negative: Tenderness, Swelling Psych Exam: Positive: Mental status NL, Mood NL, Oriented x 3 Assessment /Plan Plan/VTE VTE Prophylaxis Ordered?: Yes Plan Partial Small Bowel Obstruction CT abdomen/pelvis on admission 03/25 suggestive of partial small bowel obstruc tion possibly secondary to infectious/inflammatory versus neoplastic etiology CT Enterography on 03/29/19 revealed mild distention of small bowel diffusely with findings consistent of mild generalized ileus and enteritis Continue on flagyl and cipro since 03/27/19 The patient tolerated a clear liquid diet, and has been passing loose bowel movements. However she is still complaining of some mild right lower quadrant tenderness. General surgery on board, and input appreciated--the patient's diet has been advanced as per surgery We will continue to monitor the patient's clinical condition CT abdomen and pelvis suggestive of partially calcified lesion in the right kidney suspicious for neoplasm, ?Neoplasm at the distal ileum I did discuss the CT results at length with the patient and her daughter at the bedside. She reports that this was first noted back in December 2016. Since then, the patient has had an EGD which was notable for an angiodysplastic lesion and 2 colonoscopies which were limited due to severe diverticulosis in the sigmoid colon. I did express concern for possible underlying malignancy in this patient who has recurrent abdominal pain and has been admitted to the hospital 3 different times over the last 18 months for complaints of the same. At this time, the patient states that she is feeling better and will follow-up with her GI doctor as well as surgeon regarding further workup. She has verbalized understanding of the implications, and all questions were answered to her satisfaction. 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 Continue with spiriva, pulmicort, fomotoral neb and prn albuterol Dyslipidemia Continue statin Anxiety Continue xanax BID GERD Continue PPI DVT Prophylaxis TEDs/SCDs VS, I&O, 24H, Fishbone Vital Signs/I&O Vital Signs Date Time Temp Pulse Resp B/P (MAP) Pulse Ox O2 Delivery O2 Flow Rate FiO2 03/30/19 09:44 2.0 03/30/19 06:00 98.3 82 16 124/60 (81) 99 03/26/19 07:53 Room Air I&O- Last 24 Hours up to 6 AM 03/30/19 06:00 Intake Total 3320 ml Output Total 3300 ml Balance 20 ml Laboratory Data 24H LABS Laboratory Tests 2 03/30/19 06:15: Nucleated Red Blood Cells % (auto) 0.0, Anion Gap 5L, Glomerular Filtration Rate > 60.0, Blood Urea Nitrogen 5L, Creatinine 0.64, Sodium Level 140, Potassium Level 3.6, Chloride Level 105, Carbon Dioxide Level 30, Calcium Level 8.3L, Aspartate Amino Transf (AST/SGOT) 24, Alanine Aminotransferase (ALT/SGPT) 13, Alkaline Phosphatase 69, Total Bilirubin 0.5, Total Protein 5.6L, Albumin 2.8L, C-Reactive Protein, Quantitative 2.65H, Albumin/Globulin Ratio 1.00 CBC/BMP Laboratory Tests 03/30/19 06:15 Red Blood Count 3.27 L, Mean Corpuscular Volume 92.4, Mean Corpuscular Hemoglobin 30.9, Mean Corpuscular Hemoglobin Concent 33.4, Red Cell Distribution Width 14.0, Calcium Level 8.3 L, Aspartate Amino Transf (AST/SGOT) 24, Alanine Aminotransferase (ALT/SGPT) 13, Alkaline Phosphatase 69, Total Bilirubin 0.5, Total Protein 5.6 L, Albumin 2.8 L JANNETH SHERMAN MD Mar 30, 2019 14:12
[2019-03-30] MEDS: FORMOTEROL FUMARATE 20 MCG/2 ML INHALATION SOLUTION (PERFOROMIST) INH SCH (19:49)
[2019-03-30] MEDS: BUDESONIDE 0.5 MG/2 ML INHALATION SUSPENSION INH SCH (19:49)
[2019-03-30 20:57] VITALS: BP 152/73
[2019-03-30] MEDS: LATANOPROST 0.005% OPHTH SOLN 2.5 ML OU SCH (21:00)
[2019-03-30] MEDS: SIMVASTATIN 40 MG TAB PO SCH (21:11)
[2019-03-31] MEDS: CIPROFLOXACIN 400 MG in APPROPRIATE DILUENT 1 EA IV SCH ×2 (00:28→13:27)
[2019-03-31] MEDS: metroNIDAZOLE 500 MG in APPROPRIATE DILUENT 1 EA IV SCH ×2 (05:21→15:11)
[2019-03-31 05:58] VITALS: BP 121/57
[2019-03-31 07:50] LABS: HEMATOCRIT 32.2 % (36.0-47.0); HEMOGLOBIN 10.6 g/dl (12.0-15.5); MEAN CORPUSCULAR HEMOGLOBIN 30.3 pg (27.0-33.0); MEAN CORPUSCULAR HGB CONC 32.9 g/dl (32.0-36.5); PLATELET COUNT, AUTOMATED 209 10^3/uL (150-450); WHITE BLOOD COUNT 5.9 10^3/uL (4.0-10.0)
[2019-03-31] MEDS: ALPRAZolam 0.25 MG TAB PO SCH ×2 (08:09→21:13)
[2019-03-31] MEDS: BUDESONIDE EC 3 MG CAP (ENTOCORT EC) PO SCH (08:09)
[2019-03-31] MEDS: VERAPAMIL 180 MG PO SCH (08:10)
[2019-03-31] MEDS: PANTOPRAZOLE 40MG TAB (PROTONIX) PO SCH (08:10)
[2019-03-31 08:11] LABS: BLOOD UREA NITROGEN 4 MG/DL (7-18); C REACTIVE PROTEIN QUANTITATIV 2.22 MG/DL (0.00-0.30); CALCIUM LEVEL 8.7 MG/DL (8.8-10.2); CARBON DIOXIDE LEVEL 35 MEQ/L (21-32); CHLORIDE LEVEL 103 MEQ/L (98-107); CREATININE FOR GFR 0.59 MG/DL (0.55-1.30); GLOMERULAR FILTRATION RATE > 60.0 (>32); GLUCOSE, FASTING 101 MG/DL (70-100); MAGNESIUM LEVEL 1.7 MG/DL (1.8-2.4); POTASSIUM SERUM 3.1 MEQ/L (3.5-5.1); SODIUM LEVEL 143 MEQ/L (136-145)
[2019-03-31] MEDS: BRIMONIDINE 0.1% OPHTH SOLN 5 ML OU SCH ×2 (08:12→21:13)
[2019-03-31] MEDS: FORMOTEROL FUMARATE 20 MCG/2 ML INHALATION SOLUTION (PERFOROMIST) INH SCH ×2 (08:27→20:21)
[2019-03-31] MEDS: TIOTROPIUM INHALER/CAPSULE (SPIRIVA) INH SCH (08:27)
[2019-03-31] MEDS: BUDESONIDE 0.5 MG/2 ML INHALATION SUSPENSION INH SCH ×2 (08:27→20:21)
[2019-03-31] MEDS ORDERED: ACETAMINOPHEN TAB 650MG DOSE (2X325MG) PO PRN (12:00)
--- NOTE | 2019-03-31 12:06 | IPNPDOC ---
Subjective Date Seen The patient was seen on 03/31/19. Subjective Chief Complaint/HPI Patient seen and examined at bedside. Reports that she is having some more abdominal distention this morning. Denies any nausea/vomiting. States that she is continuing to pass flatus, but has yet to have a solid bowel movement Objective Physical Examination General Exam: Positive: Alert, Cooperative, No Acute Distress ENT Exam: Positive: Atraumatic, Mucous membr. moist/pink Neck Exam: Negative: JVD Chest Exam: Positive: Clear to auscultation, Normal air movement Heart Exam: Positive: Rate Normal, Normal S1, Normal S2 Abdomen Exam: Positive: Soft, Tenderness (mild tenderness to deep palpation in the right lower quadrant. No rebound tenderness, guarding, or rigidity noted.), Other (Slightly more distended than yesterday) Extremity Exam: Negative: Tenderness, Swelling Psych Exam: Positive: Mental status NL, Mood NL, Oriented x 3 Assessment /Plan Plan/VTE VTE Prophylaxis Ordered?: Yes Plan Partial Small Bowel Obstruction / Developing Ileus and Enteritis CT abdomen/pelvis on admission 03/25 suggestive of partial small bowel obstruction possibly secondary to infectious/inflammatory versus neoplastic etiology CT Enterography on 03/29/19 revealed mild distention of small bowel diffusely with findings consistent of mild generalized ileus and enteritis Continue on flagyl and cipro since 03/27/19 Patient states that her abdomen has been more crampy and distended this morning since starting a soft diet Notes that she has not had a bowel movement since yesterday, but is passing flatus. 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 Continue with spiriva, pulmicort, fomotoral neb and prn albuterol Dyslipidemia Continue statin Anxiety Continue xanax BID GERD Continue PPI DVT Prophylaxis TEDs/SCDs VS, I&O, 24H, Fishbone Vital Signs/I&O Vital Signs Date Time Temp Pulse Resp B/P (MAP) Pulse Ox O2 Delivery O2 Flow Rate FiO2 03/31/19 10:07 2.0 03/31/19 05:58 97.8 76 18 121/57 (78) 97 03/26/19 07:53 Room Air I&O- Last 24 Hours up to 6 AM 03/31/19 06:00 Intake Total 2660 ml Output Total 1100 ml Balance 1560 ml Laboratory Data 24H LABS Laboratory Tests 2 03/31/19 07:40: Nucleated Red Blood Cells % (auto) 0.0, Anion Gap 5L, Glomerular Filtration Rate > 60.0, Blood Urea Nitrogen 4L, Creatinine 0.59, Sodium Level 143, Potassium Level 3.1L, Chloride Level 103, Carbon Dioxide Level 35H, Calcium Level 8.7L, Magnesium Level 1.7L, C-Reactive Protein, Quantitative 2.22H CBC/BMP Laboratory Tests 03/31/19 07:40 Red Blood Count 3.50 L, Mean Corpuscular Volume 92.0, Mean Corpuscular Hemoglobin 30.3, Mean Corpuscular Hemoglobin Concent 32.9, Red Cell Distribution Width 14.3, Calcium Level 8.7 L JANNETH SHERMAN MD Mar 31, 2019 12:06
[2019-03-31] MEDS ORDERED: FLEET ENEMA PR ONE (13:00)
[2019-03-31] MEDS ORDERED: POTASSIUM CHLORIDE 10 MEQ SR TABLET PO ONE (13:00)
[2019-03-31] MEDS ORDERED: MAGNESIUM OXIDE 400 MG TAB (MAG-OX) PO ONE (13:00)
[2019-03-31] MEDS: DOCUSATE SODIUM 100 MG CAP PO SCH ×2 (13:22→21:13)
[2019-03-31 14:00] VITALS: BP 113/63
[2019-03-31] MEDS: methylPREDNISolone INJ 125 MG/2 ML VIAL (J2930) IV SCH (16:08)
[2019-03-31 17:00] VITALS: BP 141/68
[2019-03-31] MEDS: SIMVASTATIN 40 MG TAB PO SCH (21:13)
[2019-03-31] MEDS: LATANOPROST 0.005% OPHTH SOLN 2.5 ML OU SCH (21:13)
[2019-03-31 22:00] VITALS: BP 143/72
[2019-04-01 06:00] VITALS: BP 140/71
[2019-04-01] MEDS: BUDESONIDE 0.5 MG/2 ML INHALATION SUSPENSION INH SCH (07:19)
[2019-04-01] MEDS: TIOTROPIUM INHALER/CAPSULE (SPIRIVA) INH SCH (07:19)
[2019-04-01] MEDS: FORMOTEROL FUMARATE 20 MCG/2 ML INHALATION SOLUTION (PERFOROMIST) INH SCH (07:19)
[2019-04-01] MEDS: methylPREDNISolone INJ 125 MG/2 ML VIAL (J2930) IV SCH (09:12)
[2019-04-01] MEDS: PANTOPRAZOLE 40MG TAB (PROTONIX) PO SCH (09:12)
[2019-04-01] MEDS: ALPRAZolam 0.25 MG TAB PO SCH (09:12)
[2019-04-01] MEDS: BUDESONIDE EC 3 MG CAP (ENTOCORT EC) PO SCH (09:12)
[2019-04-01] MEDS: BRIMONIDINE 0.1% OPHTH SOLN 5 ML OU SCH (09:12)
[2019-04-01] MEDS: DOCUSATE SODIUM 100 MG CAP PO SCH (09:12)
[2019-04-01] MEDS: VERAPAMIL 180 MG PO SCH (09:13)
[2019-04-01 09:14] VITALS: BP 143/72
--- NOTE | 2019-04-01 13:06 | IPNPDOC ---
Subjective General Date/Time Seen The patient was seen on 04/01/19 at 13:03. Subject Chief Complaint/History The patient is a 83-year-old female admitted with a reason for visit of Small Bowel Obstruction. Patient seen sitting up on the bed. She is feeling much better after she had a bowel and following a fleets enema yesterday afternoon. Coincidentally she was also started on IV steroids yesterday. Current Medications Current Medications Current Medications Medications (Trade) Dose Ordered Sig/Gaston Route PRN Reason Start Time Stop Time Status Last Admin Dose Admin Acetaminophen (Tylenol Tab) 650 mg Q4HP PRN PO PAIN OR FEVER 03/31/19 12:00 03/31/19 13:28 Albuterol Sulfate (Proventil Neb) 2.5 mg Q4HP PRN NEB SOB/WHEEZING 03/26/19 20:15 Alprazolam (Xanax) 0.25 mg BID PO 03/29/19 21:00 04/01/19 09:12 Brimonidine Tartrate (Alphagan P 0.1%) 1 drop BID OU 03/26/19 21:00 04/01/19 09:12 Budesonide (Entocort Ec) 6 mg QAM PO 03/30/19 09:00 04/01/19 09:12 Budesonide (Pulmicort) 0.5 mg RBID INH 03/27/19 08:00 04/01/19 07:19 Ciprofloxacin 400 mg/IV Miscellaneous Supplies 200 ml @ 200 mls/hr Q12H IV 03/27/19 13:00 03/31/19 15:46 DC 03/31/19 13:27 Diatrizoate Meglum/ Diatrizoate Sod (Gastrografin) 10 ml Q30M PO 03/25/19 23:15 03/25/19 23:46 DC 03/26/19 00:21 Docusate Sodium (Colace) 100 mg BID PO 03/31/19 13:00 04/01/19 09:12 Formoterol Fumarate (Perforomist) 20 mcg RBID INH 03/27/19 20:00 04/01/19 07:19 Home Med (Med Rec Complete!) ASDIRECTED XX 03/26/19 06:00 03/26/19 06:00 DC Latanoprost (Xalatan 0.005% Op Soln) 1 drop QHS OU 03/26/19 21:00 03/31/19 21:13 Lorazepam (Ativan) 0.5 mg BID IV 03/26/19 21:00 03/29/19 19:16 DC 03/29/19 08:46 Methylprednisolone (SOLUmedrol) 60 mg DAILY IV 03/31/19 09:00 04/01/19 09:12 Metronidazole 500 mg/IV Miscellaneous Supplies 100 ml @ 100 mls/hr Q8H IV 03/27/19 14:00 03/31/19 15:46 DC 03/31/19 15:11 Miscellaneous (Unresolved Clarification Entry) SEE LABEL COMMENTS DAILY XX 04/01/19 09:00 Miscellaneous (Unresolved Patient Own Med Order) SEE LABEL COMMENTS DAILY XX 03/26/19 09:00 03/28/19 16:03 DC Morphine Sulfate (Morphine Sulfate Inj) 2 mg Q4HP PRN IV PAIN 03/26/19 06:00 03/28/19 14:19 Ondansetron HCl (ZOFRAN INJection) 2 mg Q4HP PRN IV NAUSEA OR VOMITING 03/26/19 06:00 03/26/19 23:05 Pantoprazole Sodium (Protonix) 40 mg DAILY IV 03/27/19 09:00 03/30/19 14:09 DC 03/30/19 08:26 Pantoprazole Sodium (Protonix) 40 mg DAILY PO 03/31/19 09:00 04/01/19 09:12 Patient Own Medication (Patient'S Own Med) VERAPAMIL SR 180MG - 1 CAP DAILY DAILY PO 03/28/19 09:00 04/01/19 09:13 Potassium Chloride 10 meq/ IV Miscellaneous Supplies 100 ml @ 100 mls/hr Q1H IV 03/29/19 11:00 03/29/19 13:59 DC 03/29/19 18:30 Simvastatin (Zocor) 40 mg QHS PO 03/30/19 21:00 03/31/19 21:13 Sodium Chloride 1,000 ml @ 100 mls/hr Q10H IV 03/26/19 05:28 03/26/19 05:58 DC Sodium Chloride 1,000 ml @ 100 mls/hr Q10H IV 03/26/19 06:00 03/30/19 14:09 DC 03/30/19 09:22 Tiotropium Van (Spiriva Handihaler) 1 inhalation DAILY INH 03/27/19 09:00 04/01/19 07:19 Verapamil HCl (Isoptin-Sr, Calan Sr) 180 mg DAILY XX 03/27/19 09:00 03/27/19 09:00 DC Allergies Coded Allergies: Sulfa (Sulfonamide Antibiotics) (Verified Adverse Reaction, Mild, nausea, 03/25/19) aspirin (Verified Adverse Reaction, Mild, nausea, 03/25/19) Objective Physical Examination Examination GENERAL APPEARANCE: Patient looks comfortable today. ABDOMEN: Abdomen is much flatter in appearance, soft, and nondistended. Minimal tenderness over the right lower quadrant area only on deep palpation. Vital Signs Vital Signs Date Time Temp Pulse Resp B/P (MAP) Pulse Ox O2 Delivery O2 Flow Rate FiO2 04/01/19 09:14 93 143/72 (95) 04/01/19 06:00 97.2 16 98 2.0 03/26/19 07:53 Room Air I&Os I&O- Last 24 Hours up to 6 AM 04/01/19 06:00 Intake Total 780 ml Output Total 150 ml Balance 630 ml Impression Small bowel obstruction related to inflammation at the terminal ileum I suspect this may be inflammatory bowel disease Recommend continue to treat this acutely inflamed IBD on steroid taper as well as budesonide anteriorly. She claims allergy to sulfas. She frequently goes to Dr. Soliz and I told her to arrange for follow-up with him with regards to possibility of inflammatory bowel disease. Plan / VTE VTE Prophylaxis Ordered?: Yes OVI MATHIAS MD Apr 01, 2019 13:06
[2019-04-01] MEDS ORDERED: AUGM875T28 PO (14:03)
[2019-04-01] MEDS ORDERED: COLA100C5 PO (14:03)
--- NOTE | 2019-04-01 14:47 | DS.PDOC ---
Discharge Summary General Date of Admission Mar 26, 2019 at 05:50 Date of Discharge 04/01/19 Specialist/Consultants Involve Dr. Krause of General Surgery Discharge Summary PROCEDURES PERFORMED DURING STAY: None. ADMITTING/DISCHARGE DIAGNOSES: Partial Small Bowel Obstruction possibly 2/2 Enteritis vs IBD 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 Chronic hypoxic respiratory failure oxygen dependent 31/03 Dyslipidemia Anxiety COMPLICATIONS/CHIEF COMPLAINT: Small Bowel Obstruction. HISTORY OF PRESENT ILLNESS: . 83-year-old female presented to the ER with a chief complaint of abdominal pain and diarrhea over the previous 4 days. She stated the pain was mostly in the right lower quadrant, sharp, and associated with food intake. Of note, the patient states that she has been hospitalized multiple times for similar complaints, and has been managed conservatively. She denied any complaints of fevers, chills, chest pain, palpitations, sick contacts, or recent travel. In the ER, a CT scan of the abdomen/pelvis revealed dilated, fluid-filled small bowel indicating a small bowel obstruction. The distal ileum was thickened with pathology concerning for infectious/inflammatory versus neoplastic etiology. The patient was admitted under the hospitalist service, and a consult was placed to surgery for further evaluation and management. Partial Small Bowel Obstruction possibly 2/[address] abdomen/pelvis on admission 03/25 suggestive of partial small bowel obstruction possibly secondary to infectious/inflammatory versus neoplastic etiology CT Enterography on 03/29/19 revealed mild distention of small bowel diffusely with findings consistent of mild generalized ileus and enteritis Patient reports improvement of symptoms following course of antibiotic and IV steroid therapy. At this time, the patient states that she has been able to tolerate a by mouth diet without any nausea/vomiting. She also had a bowel movement yesterday with a Fleet enema, and reports significant improvement of her abdominal pain. Surgical input appreciated The patient has been counseled to continue her medication regimen as prescribed, and follow-up with her PCP and GI doctor within the next 7 days. 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 Continue with spiriva, pulmicort, fomotoral neb and prn albuterol Dyslipidemia Continue statin Anxiety Continue xanax BID GERD Continue PPI DVT Prophylaxis TEDs/SCDs DISCHARGE MEDICATIONS: Please see below. ALLERGIES: Please see below. PHYSICAL EXAMINATION ON DISCHARGE: VITAL SIGNS: Please see below. General Exam: Positive: Alert, Cooperative, No Acute Distress ENT Exam: Positive: Atraumatic, Mucous membr. moist/pink Neck Exam: Negative: JVD Chest Exam: Positive: Clear to auscultation, Normal air movement Heart Exam: Positive: Rate Normal, Normal S1, Normal S2 Abdomen Exam: Positive: Soft, Tenderness (mild tenderness to deep palpation in the right lower quadrant. No rebound tenderness, guarding, or rigidity noted.), Other (significantly less distended than yesterday) Extremity Exam: Negative: Tenderness, Swelling Psych Exam: Positive: Mental status NL, Mood NL, Oriented x 3 LABORATORY DATA: Please see below. IMAGING: EXAM: CT Abdomen and Pelvis With Contrast EXAM DATE/TIME: 03/26/2019 3:20 AM CLINICAL HISTORY: 83 years old, female; Abdominal pain; Generalized; Additional info: Gen abd pain similar to bowel obstruction in past TECHNIQUE: Imaging protocol: Axial computed tomography images of the abdomen and pelvis with intravenous contrast. Coronal and sagittal reformatted images were created and reviewed. Radiation optimization: All CT scans at this facility use at least one of these dose optimization techniques: automated exposure control; mA and/or kV adjustment per patient size (includes targeted exams where dose is matched to clinical indication); or iterative reconstruction. Contrast material: ISOVUE 370; Contrast volume: 100 ml; Contrast route: IV; COMPARISON: CT ABD PELVIS WITH CONTRAST 06/30/2018 2:54 PM Comparison made to the report of a prior CT scan of the abdomen and pelvis from 12/29/2016. FINDINGS: Lungs: There is nonspecific patchy density and increased reticulation in the anterior left lung base. There is suggestion of emphysema in the visualized lung bases. Mediastinum: A moderate sized hiatal hernia is again present. Liver: There are no focal liver lesions present. Gallbladder and bile ducts: The gallbladder is normal with no stones or biliary ductal dilation. Pancreas: The pancreas is normal with no ductal dilation. Spleen: 4 mm and 6 mm low attenuation lesions are in noted in the spleen, of uncertain etiology but unchanged from the prior exam and of doubtful clinical significance. Adrenals: The adrenal glands are diffusely thickened but without discrete nodules. Kidneys and ureters: There is a heterogeneous density, partially calcified lesion at the right kidney midpole measuring 2.6 x 2.2 x 3.3 cm, without significant change from the prior exam. However, on a prior report from a CT scan of December,, measurements of 2.5 x 1.9 x 2.9 cm were obtained. A 2.8 cm simple cyst in the left kidney a 3.1 cm simple cyst in the right kidney midpole and a 2.0 cm simple cyst in right kidney lower pole are without significant change. There are no ureteral stones or hydronephrosis. Stomach and bowel: There are multiple dilated, fluid-filled small bowel loops in the midabdomen, which appears to involve the mid and distal ileum. Proximal small bowel loops are not significantly dilated. The transition is in the distal ileum, where there is a thickened, nondistended bowel loop at the terminal ileum. The colon is non-dilated. There is air and stool in the colon without significant wall thickening. Appendix: The appendix is not specifically identified. Intraperitoneal space: There is no free intraperitoneal air. Vasculature: The aorta demonstrates severe atherosclerotic calcification. Lymph nodes: No lymphadenopathy is seen. Bladder: There is distention of the bladder measuring 13.4 x 14.7 x 12.5 cm. No definite bladder wall thickening or bladder stones are identified. Reproductive: The uterus is either atrophic or has been resected. Bones/joints: Degenerative endplate changes are seen at multiple levels in the visualized spine. Soft tissues: Unremarkable. IMPRESSION: 1. Dilated, fluid-filled small bowel, indicating a small bowel obstruction. The transition is at a thickened segment of the distal ileum, but the etiology of the thickening is unknown and may be infectious/inflammatory or neoplastic. 2. Distended bladder. 3. Moderate-sized hiatal hernia. 4. Complex, partially calcified lesion in the right kidney, as seen and reported previously is suspicious for neoplasm. It has not changed significantly in size compared to June 2018, but measurements are larger than measurements given on a prior report from December,. Portable chest, 06:13 a.m., single AP view with the patient sitting: Comparison is 09/21/2013. There is a nasogastric tube with the tip terminating in the and hiatal hernia. The right lung is clear. The left lung is clear except for my mild atelectasis inferiorly. Cardiac size is upper normal. The meli, mediastinum, skeletal structures are unremarkable except for right shoulder impingement. Impression: The nasogastric tube terminates in an hiatal hernia. There is mild atelectasis inferiorly in the left lung. Abdominal series four views including two PA views of the chest and two supine views of the abdomen: Comparisons are the abdomen and pelvis CT performed earlier today and the portable plain film study of the chest performed earlier today. PA chest two views: There is a nasogastric tube terminating in a hiatal hernia. This is unchanged from the portable chest earlier today. Lung horne appear hyperinflated, unchanged. There is atelectasis/scarring inferiorly in the left lung, unchanged. There is no free subdiaphragmatic air. Cardiac size is upper normal, unchanged. The meli, mediastinum, skeletal structures are unremarkable. Impression: The nasogastric tube terminates in a hiatal hernia. No free subdiaphragmatic air. Other findings as described. Abdomen, two supine views: There are multiple mildly dilated small bowel loops throughout the abdomen. There appear to be slightly less dilated than on the CT scan earlier today. The bladder is distended and opacified, likely from the IV contrast for the CT earlier today. There is degenerative disc disease throughout the lumbar spine ABDOMINAL SERIES: Supine and erect views of the abdomen and pelvis demonstrate no free air. There are again moderately dilated small bowel loops in the abdomen. The caliber is similar to the prior study of 03/26/2019. Contrast in the small bowel has now passed into the right colon indicating that this is not a complete small bowel obstruction. Nasogastric tube is seen with the distal end coiled in a hiatal hernia. CT ENTEROGRAPHY ABDOMEN AND PELVIS WITH ORAL AND IV CONTRAST: CT enterography performed following the intravenous administration of 100 mL of Isovue 370, in addition to oral contrast as per hospital protocol. The arterial phase and venous phase imaging is performed. Sagittal and coronal reconstruction images are performed. COMPARISON: 03/26/2019. There are small bilateral pleural effusions. There is mild adjacent atelectasis or infiltrate in the visualized lung bases. There is a large hiatal hernia. There is mild diffuse distention of small bowel loops with air and fluid. Previously noted oral contrast in the small bowel is now seen throughout the colon. There is mild diffuse mucosal thickening of small bowel. The pattern is most consistent with mild generalized ileus and enteritis. I see no colonic thickening. There are scattered diverticula throughout the sigmoid and left colon. There is no appendicitis. Mild diffuse free fluid is seen in the a bdomen and pelvis. The liver, spleen, adrenals, pancreas are unremarkable. There are bilateral renal cysts again noted. There is a partially calcified mass in the right kidney unchanged since the prior CT of 06/30/2018. There is atherosclerotic calcification of the abdominal aorta without aneurysm. I see no adenopathy or free air. A Coates catheter is seen in the urinary bladder which contains a small amount of air and fluid. Since the prior study of 03/26/2019, the moderately dilated small bowel loops have decreased in caliber. IMPRESSION: Decreased caliber of small bowel loops. There is now mild distention of small bowel diffusely with air and fluid, with mild diffuse mucosal thickening. The findings currently are most consistent with a mild generalized ileus and enteritis. Multiple diverticula of the sigmoid and left colon. No appendicitis. Mild diffuse free fluid in the abdomen and pelvis. No free air. Small bilateral pleural effusions with mild adjacent atelectasis/infiltrate. Again noted is a partially calcified solid mass in the right kidney unchanged. PROGNOSIS: Fair ACTIVITY: As tolerated. DIET: As tolerated DISCHARGE PLAN: DISPOSITION: . Home DISCHARGE INSTRUCTIONS: The patient has been counseled to continue her medication regimen as prescribed, and follow-up with her PCP and GI doctor within the next 7 days. Return to the ER for any acute emergencies DISCHARGE CONDITION: Stable. TIME SPENT ON DISCHARGE: Greater than 30 minutes. Vital Signs/I&Os Vital Signs Date Time Temp Pulse Resp B/P (MAP) Pulse Ox O2 Delivery O2 Flow Rate FiO2 04/01/19 09:14 93 143/72 (95) 04/01/19 09:00 2.0 04/01/19 06:00 97.2 16 98 03/26/19 07:53 Room Air I&O- Last 24 Hours up to 6 AM 04/01/19 06:00 Intake Total 780 ml Output Total 150 ml Balance 630 ml Discharge Medications Scheduled Alprazolam (Xanax) 0.25 Mg Tab, 0.25 MG PO BID, (Reported) Amoxicillin/Potassium Clav (Augmentin 875-125 Tablet) 1 Each Tablet, 1 TAB PO BID Arformoterol Tartrate (Brovana) 15 Mcg/2 Ml Neb, 15 MCG INH BID, (Reported) MIXES WITH BUDESONIDE Aspirin (Aspirin EC) 81 Mg Tab, 81 MG PO DAILY, (Reported) Brimonidine Tartrate (Alphagan P) 0.1% 5ML Drops, 1 DROP OU BID, (Reported) Budesonide (Budesonide) 0.5 Mg/2 Ml Neb, 0.5 MG INH BID, (Reported) MIXES WITH BROVANA Calcium Carbonate/Vitamin D3 (Calcium 500-Vit D3 200 Tablet) 1 Each Tablet, 1 TAB PO DAILY, (Reported) Cholecalciferol (Vitamin D3) (Vitamin D3) 2,000 Unit Capsule, 2,000 UNIT PO DAILY, (Reported) Dicyclomine HCl (Dicyclomine HCl) 10 Mg Capsule, 10 MG PO BID, (Reported) Docusate Sodium (Colace) 100 Mg Capsule, 100 MG PO BID Latanoprost (Xalatan) 0.005% 2.5ML Drops, 1 DROP OU QHS, (Reported) Linaclotide (Linzess) 290 Mcg Capsule, 290 MCG PO DAILY, (Reported) Lovastatin (Lovastatin) 40 Mg Tablet, 40 MG PO QHS, (Reported) Pantoprazole Sodium (Pantoprazole Sodium) 40 Mg Tablet.dr, 40 MG PO DAILY, (Reported) Sennosides (Senna) 8.6 Mg Tablet, 8.6 MG PO QHS, (Reported) Tiotropium [place] (Spiriva) 18 Mcg Cap.w.dev, 1 INHALATION INH DAILY, (Reported) Trandolapril (Trandolapril) 1 Mg Tablet, 1 MG PO QHS, (Reported) Verapamil HCl (Verapamil Sr) 180 Mg Cap24h.pel, 180 MG PO DAILY, (Reported) Scheduled PRN Acetaminophen (Acetaminophen) 500 Mg Tablet, 500 MG PO Q4H PRN for PAIN, (Reported) Polyethylene Glycol 3350 (Miralax) 17 Gm Powd.pack, 17 GM PO DAILY PRN for CONSTIPATION, (Reported) Allergies Coded Allergies: Sulfa (Sulfonamide Antibiotics) (Verified Adverse Reaction, Mild, nausea, 03/25/19) aspirin (Verified Adverse Reaction, Mild, nausea, 03/25/19) JANNETH SHERMAN MD Apr 01, 2019 14:47
== END 2019-04-01 14:41 | disposition home or self-care (01) | DRG 386 ==
LOC: M ED 20:28 → M ED INP 03-26 05:50 → M MSPAV 03-26 08:10 → M MS4PR 03-29 12:38 → M ED INP 03-29 22:33 → M MS4PR 03-29 22:34 → M MSPAV 03-31 16:54
PROVIDERS: ADMIT Internal Medicine; ATTEND Internal Medicine
DX: K50.012 Crohn's disease of small intestine with intestinal obstruction (principal); J96.11 Chronic respiratory failure with hypoxia; K56.7 Ileus, unspecified; K52.9 Noninfective gastroenteritis and colitis, unspecified; J44.9 Chronic obstructive pulmonary disease, unspecified; E78.5 Hyperlipidemia, unspecified; F41.9 Anxiety disorder, unspecified; Z99.81 Dependence on supplemental oxygen; K21.9 Gastro-esophageal reflux disease without esophagitis; K44.9 Diaphragmatic hernia without obstruction or gangrene; Z79.899 Other long term (current) drug therapy; Z79.82 Long term (current) use of aspirin; Z88.2 Allergy status to sulfonamides; Z88.6 Allergy status to analgesic agent; I10 Essential (primary) hypertension; E87.6 Hypokalemia

== ENCOUNTER → 2019-04-07 | Outpatient (REF) | payer MEDICARE ==
[~2019-04-07] MED LIST changes: +ACET-683 PO; +AUGM875T28 PO; +BRIM1OPD OU; +CALC500T44 PO; +CALC600T60 PO; +CHOL10007 PO; +COLA100C5 PO; +DICY1CAP8 PO; +LINZ290C PO; +MIRA1POW3 PO; +OMEP1CAP73; -OMEP20CA4; +PANT-23 PO; +SENN1TAB8 PO; +SPIR1CAP INH; +TRAN1TAB47 PO; +VERA180C3 PO; +VITA200021 PO; +XALA0.007 OU
[2019-04-07 13:22] LABS: BASO % 0.5 % (0.0-1.0); EOS # 0.2 10^3/uL (0.0-0.50); EOS % 2.9 % (0.0-3.0); HEMOGLOBIN 11.4 g/dl (12.0-15.5); LYMPH # 1.5 10^3/uL (1.5-4.5); LYMPH % 23.3 % (24.0-44.0); MEAN CORPUSCULAR HEMOGLOBIN 30.4 pg (27.0-33.0); MEAN CORPUSCULAR HGB CONC 31.7 g/dl (32.0-36.5); MONO # 0.8 10^3/uL (0.0-0.8); MONO % 11.6 % (0.0-5.0); NEUTROPHILS % 61.1 % (36.0-66.0); PLATELET COUNT, AUTOMATED 339 10^3/uL (150-450); RED BLOOD COUNT 3.75 10^6/uL (4.00-5.40); WHITE BLOOD COUNT 6.6 10^3/uL (4.0-10.0)
[2019-04-07 13:50] LABS: ALBUMIN 3.7 GM/DL (3.2-5.2); BILIRUBIN,TOTAL 0.3 MG/DL (0.2-1.0); CALCIUM LEVEL 9.7 MG/DL (8.8-10.2); CREATININE FOR GFR 1.04 MG/DL (0.55-1.30); GLOMERULAR FILTRATION RATE 53.6 (>32); MAGNESIUM LEVEL 2.1 MG/DL (1.8-2.4); POTASSIUM SERUM 4.6 MEQ/L (3.5-5.1)
== END ==
LOC: M SFHCPLAZ 11:55
PROVIDERS: ATTEND Family Medicine
DX: K56.609 Unspecified intestinal obstruction, unspecified as to partial versus complete obstruction (principal); E83.42 Hypomagnesemia

== ENCOUNTER → 2019-05-27 | Outpatient (REF) | payer MEDICARE ==
[~2019-05-27] MED LIST changes: -OMEP1CAP73; +OMEP20CA4
[2019-05-27 19:28] LABS: BASO % 0.5 % (0.0-1.0); EOS # 0.2 10^3/uL (0.0-0.5); EOS % 3.1 % (0.0-3.0); HEMATOCRIT 33.1 % (36.0-47.0); HEMOGLOBIN 10.3 g/dl (12.0-15.5); LYMPH # 1.3 10^3/uL (1.5-5.0); LYMPH % 22.4 % (24.0-44.0); MEAN CORPUSCULAR HEMOGLOBIN 31.2 pg (27.0-33.0); MEAN CORPUSCULAR HGB CONC 31.1 g/dl (32.0-36.5); MEAN CORPUSCULAR VOLUME 100.3 fl (80.0-96.0); MONO # 0.7 10^3/uL (0.0-0.8); MONO % 11.7 % (0.0-5.0); NEUTROPHILS # 3.6 10^3/uL (1.5-8.5); NEUTROPHILS % 62.1 % (36.0-66.0); PLATELET COUNT, AUTOMATED 237 10^3/uL (150-450); WHITE BLOOD COUNT 5.7 10^3/uL (4.0-10.0)
[2019-05-27 19:31] LABS: ALBUMIN 3.6 GM/DL (3.2-5.2); ALT/SGPT 19 U/L (12-78); BILIRUBIN,TOTAL 0.3 MG/DL (0.2-1.0); BLOOD UREA NITROGEN 28 MG/DL (7-18); CALCIUM LEVEL 9.3 MG/DL (8.8-10.2); CARBON DIOXIDE LEVEL 33 MEQ/L (21-32); CHLORIDE LEVEL 101 MEQ/L (98-107); GLOMERULAR FILTRATION RATE > 60.0 (>32); GLUCOSE, FASTING 80 MG/DL (70-100); POTASSIUM SERUM 5.1 MEQ/L (3.5-5.1); SODIUM LEVEL 138 MEQ/L (136-145); TOTAL PROTEIN 6.4 GM/DL (6.4-8.2)
== END ==
LOC: M SFHCPLAZ 13:04
PROVIDERS: ATTEND Family Medicine
DX: R19.7 Diarrhea, unspecified (principal)
CPT/HCPCS: 36415; 80053; 83735; 85025; G0463

== ENCOUNTER → 2019-05-31 | Outpatient (REF) | payer MEDICARE | LOC: M SFHCPLAZ 17:31 | PROVIDERS: ATTEND Family Medicine | DX: R19.7 Diarrhea, unspecified (principal) ==

== ENCOUNTER → 2019-06-09 | Outpatient (REF) | payer MEDICARE ==
[2019-06-09 16:57] LABS: BASO % 0.3 % (0.0-1.0); EOS # 0.1 10^3/uL (0.0-0.5); EOS % 2.1 % (0.0-3.0); HEMATOCRIT 33.7 % (36.0-47.0); HEMOGLOBIN 10.8 g/dl (12.0-15.5); LYMPH # 1.3 10^3/uL (1.5-5.0); LYMPH % 19.7 % (24.0-44.0); MEAN CORPUSCULAR HEMOGLOBIN 31.3 pg (27.0-33.0); MEAN CORPUSCULAR VOLUME 97.7 fl (80.0-96.0); MONO # 0.7 10^3/uL (0.0-0.8); NEUTROPHILS # 4.5 10^3/uL (1.5-8.5); NEUTROPHILS % 66.7 % (36.0-66.0); PLATELET COUNT, AUTOMATED 276 10^3/uL (150-450); RED BLOOD COUNT 3.45 10^6/uL (4.00-5.40); WHITE BLOOD COUNT 6.7 10^3/uL (4.0-10.0)
[2019-06-09 17:05] LABS: BILIRUBIN,TOTAL 0.5 MG/DL (0.2-1.0); CALCIUM LEVEL 9.5 MG/DL (8.8-10.2); CREATININE FOR GFR 1.02 MG/DL (0.55-1.30); GLOMERULAR FILTRATION RATE 54.8 (>32); TOTAL PROTEIN 6.9 GM/DL (6.4-8.2)
== END ==
LOC: M SFHCPLAZ 14:12
PROVIDERS: ATTEND Family Medicine
DX: A04.72 Enterocolitis due to Clostridium difficile, not specified as recurrent (principal); R51 Headache
CPT/HCPCS: 36415; 80053; 83690; 85025; G0463

== ENCOUNTER → 2020-04-11 | Outpatient (REF) | payer MEDICARE ==
[~2020-04-11] MED LIST changes: +OMEP1CAP73; -OMEP20CA4; +SENN-80 PO; -SENN1TAB8 PO
[2020-06-29 15:48] LABS: GLUCOSE, FASTING SEE SEPARATE REPORT
== END ==
LOC: M SFHCPLAZ 10:48
PROVIDERS: ATTEND Family Medicine
DX: I10 Essential (primary) hypertension (principal)
CPT/HCPCS: 36415; 80048; G0463

== ENCOUNTER → 2020-11-21 | Outpatient (CLI) | payer MEDICARE ==
[~2020-11-21] MED LIST changes: -TRAN1TAB47 PO; -TRAN1TAB48; +TRAN1TAB54 PO; +TRAN1TAB55
--- NOTE | 2020-11-21 15:45 | REP ---
INDICATION: CENTRILOBULAR EMPHYSEMA COMPARISON: 03/26/2019 TECHNIQUE: PA and lateral. FINDINGS: Lung volumes are again hyperinflated and demonstrate oligemia consistent with emphysematous disease. No acute focal consolidation, effusion, or pneumothorax. Mediastinum demonstrates normal stable cardiac silhouette and moderate to large hiatal hernia. IMPRESSION: Chronic changes. Moderate to large hiatal hernia. <Electronically signed by Ranjit Whitney > 11/21/20 [id number]
--- NOTE | 2020-11-21 16:08 | REP ---
INDICATION: LOCALIZED EDEMA. COMPARISON: None. TECHNIQUE: Deep vein duplex ultrasonography of the right lower extremity. FINDINGS: The right lower extremity deep veins demonstrate normal compression, normal Doppler color flow and normal Doppler waveforms with respiration and augmentation at multiple levels. There is a popliteal fossa cyst measuring 3.8 cm craniocaudad by 0.82 cm AP x 1.5 cm transversely, likely a Hill's cyst. IMPRESSION: There is no evidence of right lower extremity deep vein thrombus. There is a popliteal fossa Hill's cyst. <Electronically signed by Chago Church > 11/21/20 [id number]
== END ==
LOC: M RAD 15:04
PROVIDERS: ATTEND Internal Medicine Pulmonary Disease
DX: R60.0 Localized edema (principal); K44.9 Diaphragmatic hernia without obstruction or gangrene

== ENCOUNTER → 2020-12-06 | Outpatient (REF) | payer MEDICARE ==
[2020-12-06 17:46] LABS: HEMATOCRIT 34.1 % (36.0-47.0); HEMOGLOBIN 10.9 g/dl (12.0-15.5); MEAN CORPUSCULAR HEMOGLOBIN 32.2 pg (27.0-33.0); MEAN CORPUSCULAR VOLUME 100.9 fl (80.0-96.0); PLATELET COUNT, AUTOMATED 261 10^3/uL (150-450); RED BLOOD COUNT 3.38 10^6/uL (4.00-5.40); WHITE BLOOD COUNT 6.6 10^3/uL (4.0-10.0)
[2020-12-06 18:09] LABS: CALCIUM LEVEL 9.8 MG/DL (8.8-10.2); CREATININE FOR GFR 1.13 MG/DL (0.55-1.30); GLOMERULAR FILTRATION RATE 48.6 (>32); PERCENT SATURATION 28.3 % (13.2-45.0); POTASSIUM SERUM 5.5 MEQ/L (3.5-5.1)
[2020-12-06 18:15] LABS: TOTAL 25(OH) VITAMIN D 54.6 NG/ML (30.0-100.0)
== END ==
LOC: M SFHCPLAZ 13:55
PROVIDERS: ATTEND Family Medicine
DX: D50.9 Iron deficiency anemia, unspecified (principal); I10 Essential (primary) hypertension; M81.0 Age-related osteoporosis without current pathological fracture

== ENCOUNTER → 2020-12-07 | Outpatient (REF) | payer MEDICARE ==
[2020-12-07 15:41] LABS: HEMATOCRIT 34.4 % (36.0-47.0)
[2020-12-07 16:05] LABS: CALCIUM LEVEL 9.4 MG/DL (8.8-10.2); CREATININE FOR GFR 1.01 MG/DL (0.55-1.30); GLOMERULAR FILTRATION RATE 55.3 (>32); POTASSIUM SERUM 4.6 MEQ/L (3.5-5.1)
== END ==
LOC: M PLALAB 13:42
PROVIDERS: ATTEND Family Medicine
DX: I10 Essential (primary) hypertension (principal); D53.9 Nutritional anemia, unspecified

== ENCOUNTER → 2020-12-11 | Outpatient (REF) | payer MEDICARE ==
[2020-12-11 18:54] LABS: BLOOD UREA NITROGEN 22 MG/DL (7-18); CALCIUM LEVEL 9.8 MG/DL (8.8-10.2); CARBON DIOXIDE LEVEL 34 MEQ/L (21-32); CHLORIDE LEVEL 103 MEQ/L (98-107); CREATININE FOR GFR 0.91 MG/DL (0.55-1.30); GLOMERULAR FILTRATION RATE > 60.0 (>32); GLUCOSE, FASTING 82 MG/DL (70-100); POTASSIUM SERUM 4.7 MEQ/L (3.5-5.1); SODIUM LEVEL 141 MEQ/L (136-145)
== END ==
LOC: M PLALAB 16:45
PROVIDERS: ATTEND Family Medicine
DX: E87.5 Hyperkalemia (principal)

== ENCOUNTER → 2021-02-08 | Outpatient (CLI) | payer MEDICARE ==
[~2021-02-08] MED LIST changes: -CALC500T44 PO; +OYST500T92 PO
--- NOTE | 2021-02-08 16:36 | DEXAMM ---
INDICATION: M81.0 OSTEOPOROSIS. COMPARISON: 02/04/2017 as well as other prior exams. TECHNIQUE: Bone density was measured using dual-energy x-ray absorptiometry (DEXA). FINDINGS: AP SPINE L1-L4 BMD 1.211 g/cm2 Young Adult T-Score 0.1 Age Matched Z-Score 2.1. LT FEMUR, TOTAL BMD 0.550 g/cm2 Young Adult T-Score -3.6 Age Matched Z-Score -1.2. LT NECK BMD 0.475 g/cm2 Young Adult T-Score -4.0 Age Matched Z-Score -1.6. RT FEMUR, TOTAL BMD 0.576 g/cm2 Young Adult T-Score -3.4 Age Matched Z-Score -1.0. RT NECK BMD 0.538 g/cm2 Young Adult T-Score -3.6 Age Matched Z-Score -1.1. IMPRESSION: There is normal bone density of the spine. There is osteoporosis of the left hip. There is osteoporosis of the right hip. The density of the spine has increased 2.4% since the initial exam on 12/01/1998. The density of the spine decreased 3.1% since most recent exam on 02/04/2017. The density of the left hip has decreased 35.1% since initial exam on 12/01/1998. The density of the left hip has decreased 17.8% since most recent exam on 02/04/2017. The density of the right hip has decreased 34.1% since the initial exam on 12/01/1998. The density of the right hip has decreased 16.6% since the most recent exam on 02/04/2017. FOLLOW-UP: Recommendation for the next bone density exam: 2 years. <Electronically signed by Chago Yin > 02/08/21 [id number]
== END ==
LOC: M WHC 14:59
PROVIDERS: ATTEND Family Medicine
DX: M81.0 Age-related osteoporosis without current pathological fracture (principal)

== ENCOUNTER → 2021-06-07 | Outpatient (CLI) | payer MEDICARE ==
[2021-06-07 15:40] LABS: HEMATOCRIT 32.8 % (36.0-47.0); HEMOGLOBIN 10.6 g/dl (12.0-15.5); MEAN CORPUSCULAR HEMOGLOBIN 32.2 pg (27.0-33.0); MEAN CORPUSCULAR HGB CONC 32.3 g/dl (32.0-36.5); MEAN CORPUSCULAR VOLUME 99.7 fl (80.0-96.0); PLATELET COUNT, AUTOMATED 239 10^3/uL (150-450); RED BLOOD COUNT 3.29 10^6/uL (4.00-5.40); WHITE BLOOD COUNT 6.3 10^3/uL (4.0-10.0)
[2021-06-07 16:14] LABS: CALCIUM LEVEL 9.3 MG/DL (8.8-10.2); GLOMERULAR FILTRATION RATE 55.8 (>32); PERCENT SATURATION 23.4 % (13.2-45.0)
== END ==
LOC: M PLALAB 13:38
PROVIDERS: ATTEND Family Medicine
DX: I10 Essential (primary) hypertension (principal); D50.9 Iron deficiency anemia, unspecified
CPT/HCPCS: 36415; 80048; 82728; 83550; 85027; G0463

== ENCOUNTER 2021-12-24 12:21 | Inpatient (IN) | payer MEDICARE ==
[~2021-12-24] VITALS: Ht 152.4 cm; Wt 44.5 kg
[2021-12-24] MEDS: TIOTROPIUM INHALER/CAPSULE (SPIRIVA) INH SCH (08:00)
[~2021-12-24 12:21] MED LIST changes: +VERAPAMIL 180MG EXTENDED RELEASE TABLET PO SCH
[2021-12-24 13:30] VITALS: BP 185/95
[2021-12-24] MEDS ORDERED: MAALOX 30 ML SUSP *UDC PO PRN (13:30)
[2021-12-24 14:00] VITALS: BP 180/94
[2021-12-24] MEDS ORDERED: D200CAP3 PO (14:00)
[2021-12-24] MEDS ORDERED: HOME MED LIST COMPLETE! XX SCH (14:05)
[2021-12-24] MEDS ORDERED: ALBU8.5H INH (14:05)
[2021-12-24] MEDS ORDERED: SERT25TA21 PO (14:05)
[2021-12-24 14:50] LABS: BASO % 0.1 % (0.0-1.0); EOS % 0.1 % (0.0-3.0); HEMATOCRIT 34.9 % (36.0-47.0); HEMOGLOBIN 11.4 g/dl (12.0-15.5); LYMPH # 0.7 10^3/uL (1.5-5.0); LYMPH % 8.5 % (24.0-44.0); MEAN CORPUSCULAR HEMOGLOBIN 32.7 pg (27.0-33.0); MEAN CORPUSCULAR HGB CONC 32.7 g/dl (32.0-36.5); MONO # 0.6 10^3/uL (0.0-0.8); MONO % 7.1 % (2.0-8.0); NEUTROPHILS # 6.6 10^3/uL (1.5-8.5); NEUTROPHILS % 83.9 % (36.0-66.0); PLATELET COUNT, AUTOMATED 198 10^3/uL (150-450); RED BLOOD COUNT 3.49 10^6/uL (4.00-5.40); WHITE BLOOD COUNT 7.9 10^3/uL (4.0-10.0)
[2021-12-24] MEDS ORDERED: methylPREDNISolone 125MG 2ML VIAL IV ONE (15:00)
[2021-12-24] MEDS: IPRATROPIUM 0.5MG/ALBUTEROL 2.5MG INH SOL UD 3ML (DUONEB) NEB SCH ×2 (15:08→19:59)
[2021-12-24 15:25] LABS: ALT/SGPT 27 U/L (12-78); BILIRUBIN,TOTAL 0.4 MG/DL (0.2-1.0); BLOOD UREA NITROGEN 17 MG/DL (7-18); CALCIUM LEVEL 9.7 MG/DL (8.8-10.2); CARBON DIOXIDE LEVEL 35 MEQ/L (21-32); CHLORIDE LEVEL 100 MEQ/L (98-107); CREATININE FOR GFR 0.75 MG/DL (0.55-1.30); GLOMERULAR FILTRATION RATE > 60.0 (>32); GLUCOSE, FASTING 104 MG/DL (70-100); MAGNESIUM LEVEL 2.1 MG/DL (1.8-2.4); NT-PRO BNP 1035 PG/ML (<450); POTASSIUM SERUM 4.4 MEQ/L (3.5-5.1); SODIUM LEVEL 138 MEQ/L (136-145); TOTAL PROTEIN 7.5 GM/DL (6.4-8.2)
[2021-12-24 15:30] LABS: CK-MB VALUE MASS 3.8 NG/ML (<3.6); MB/CK RELATIVE INDEX 2.66 (< OR =4)
[2021-12-24] MEDS: AZITHROMYCIN INJ 500 MG, VIAL MATE ADAPTER 1 EACH in NS 250 ML IV SCH (15:41)
[2021-12-24] MEDS ORDERED: FUROSEMIDE 20MG/2ML VIAL (J1940) IV ONE (15:45)
[2021-12-24] MEDS ORDERED: ISOVUE-370 76% 100ML VIAL As Ordered ONE (15:59)
[2021-12-24 17:14] LABS: CK-MB VALUE MASS 4.4 NG/ML (<3.6); MB/CK RELATIVE INDEX 3.46 (< OR =4)
[2021-12-24] MEDS ORDERED: ALBUTEROL 90 MCG/ACT 8GM HFA INHALER INH PRN (17:30)
[2021-12-24] MEDS ORDERED: MIRALAX *UNIT DOSE* 17GM PACKET PO PRN (17:30)
[2021-12-24] MEDS ORDERED: DICYCLOMINE 10 MG CAP PO PRN (17:30)
[2021-12-24] MEDS: HEPARIN SOD (PORCINE) 5000UNITS/ML 1ML VIAL/SYRINGE SC SCH (18:10)
[2021-12-24] MEDS: cefTRIAXone SOD 1 GM in D5W MINI-BAG PLUS 50 ML IV SCH (18:10)
[2021-12-24 18:48] VITALS: BP 171/91
[2021-12-24 19:37] VITALS: BP 168/89
[2021-12-24] MEDS: VERAPAMIL 180MG EXTENDED RELEASE TABLET PO SCH (19:37)
[2021-12-24] MEDS: SYMBICORT 160/4.5MCG INHALER 6GM INH SCH (19:59)
[2021-12-24] MEDS: ALPRAZolam 0.25 MG TAB PO SCH (20:09)
[2021-12-24] MEDS: guaiFENesin ER 600 MG TAB PO SCH (20:10)
[2021-12-24] MEDS: LATANOPROST 0.005% OPHTH SOLN 2.5 ML OU SCH (20:10)
[2021-12-24] MEDS: SENNA 8.6 MG TAB (SENOKOT) PO SCH (20:10)
[2021-12-24] MEDS: PANTOPRAZOLE 40MG TAB (PROTONIX) PO SCH (20:10)
[2021-12-24] MEDS: DOCUSATE SODIUM 100MG CAPSULE PO SCH (20:10)
[2021-12-24] MEDS: BRIMONIDINE 0.1% OPHTH SOLN 5 ML OU SCH (20:10)
[2021-12-24 20:29] LABS: CK-MB VALUE MASS 5.1 NG/ML (<3.6); MB/CK RELATIVE INDEX 3.13 (< OR =4)
[2021-12-24] MEDS ORDERED: CAPTOpril 6.25 MG PER 1/2 TABLET PO ONE (21:00)
[2021-12-24] MEDS ORDERED: SIMVASTATIN 40 MG TAB PO SCH (21:00)
[2021-12-24 22:30] VITALS: BP 112/51
[2021-12-24] MEDS: ATORVASTATIN 20 MG TAB PO SCH (22:58)
[2021-12-25 00:04] VITALS: O2SAT 94
[2021-12-25] MEDS: HEPARIN SOD (PORCINE) 5000UNITS/ML 1ML VIAL/SYRINGE SC SCH ×3 (02:16→17:42)
[2021-12-25] MEDS: LEVALBUTEROL 1.25 MG/0.5 ML CONCENTRATE NEB INH SCH ×4 (02:17→19:38)
[2021-12-25] MEDS: IPRATROPIUM 0.02% SOLN 0.5MG 2.5ML NEB INH SCH ×4 (02:17→19:38)
[2021-12-25] MEDS ORDERED: FUROSEMIDE 40MG/4ML VIAL (J1940) IV SCH (06:00)
[2021-12-25 06:13] LABS: HEMATOCRIT 29.9 % (36.0-47.0); HEMOGLOBIN 9.8 g/dl (12.0-15.5); LYMPH # 0.5 10^3/uL (1.5-5.0); LYMPH % 7.9 % (24.0-44.0); MEAN CORPUSCULAR HEMOGLOBIN 31.5 pg (27.0-33.0); MEAN CORPUSCULAR HGB CONC 32.8 g/dl (32.0-36.5); MEAN CORPUSCULAR VOLUME 96.1 fl (80.0-96.0); MONO # 0.2 10^3/uL (0.0-0.8); MONO % 4.2 % (2.0-8.0); NEUTROPHILS % 87.4 % (36.0-66.0); PLATELET COUNT, AUTOMATED 191 10^3/uL (150-450); RED BLOOD COUNT 3.11 10^6/uL (4.00-5.40); WHITE BLOOD COUNT 5.7 10^3/uL (4.0-10.0)
[2021-12-25 06:23] VITALS: BP 120/81
[2021-12-25 07:55] LABS: BLOOD UREA NITROGEN 22 MG/DL (7-18); CALCIUM LEVEL 9.1 MG/DL (8.8-10.2); CARBON DIOXIDE LEVEL 32 MEQ/L (21-32); CHLORIDE LEVEL 100 MEQ/L (98-107); GLOMERULAR FILTRATION RATE > 60.0 (>32); GLUCOSE, FASTING 136 MG/DL (70-100); POTASSIUM SERUM 3.7 MEQ/L (3.5-5.1); SODIUM LEVEL 142 MEQ/L (136-145)
[2021-12-25] MEDS: TIOTROPIUM INHALER/CAPSULE (SPIRIVA) INH SCH (08:26)
[2021-12-25] MEDS: SYMBICORT 160/4.5MCG INHALER 6GM INH SCH ×2 (08:27→19:38)
[2021-12-25] MEDS ORDERED: VERAPAMIL 180MG EXTENDED RELEASE TABLET PO SCH (09:00)
[2021-12-25] MEDS: PANTOPRAZOLE 40MG TAB (PROTONIX) PO SCH ×2 (10:31→20:50)
[2021-12-25] MEDS: guaiFENesin ER 600 MG TAB PO SCH ×2 (10:31→20:50)
[2021-12-25] MEDS: CALCIUM/VITAMIN D 500 MG TAB PO SCH (10:31)
[2021-12-25] MEDS: ASPIRIN 81MG ENTERIC TABLET PO SCH (10:32)
[2021-12-25] MEDS: SERTRALINE HCL 25 MG TABLET PO SCH (10:32)
[2021-12-25] MEDS: VERAPAMIL 180MG EXTENDED RELEASE TABLET PO SCH (10:32)
[2021-12-25] MEDS: DOCUSATE SODIUM 100MG CAPSULE PO SCH ×2 (10:32→20:50)
[2021-12-25] MEDS: ALPRAZolam 0.25 MG TAB PO SCH ×2 (10:32→20:50)
[2021-12-25] MEDS: BRIMONIDINE 0.1% OPHTH SOLN 5 ML OU SCH ×2 (10:33→20:50)
[2021-12-25 11:55] VITALS: O2SAT 93
[2021-12-25 14:00] VITALS: BP 123/61
[2021-12-25] MEDS: AZITHROMYCIN INJ 500 MG, VIAL MATE ADAPTER 1 EACH in NS 250 ML IV SCH (15:13)
[2021-12-25] MEDS: cefTRIAXone SOD 1 GM in D5W MINI-BAG PLUS 50 ML IV SCH (16:38)
[2021-12-25] MEDS: ACETAMINOPHEN TAB 650MG DOSE (2X325MG) PO PRN (18:29)
[2021-12-25] MEDS: SENNA 8.6 MG TAB (SENOKOT) PO SCH (20:50)
[2021-12-25] MEDS: LATANOPROST 0.005% OPHTH SOLN 2.5 ML OU SCH (20:50)
[2021-12-25] MEDS: ATORVASTATIN 20 MG TAB PO SCH (20:50)
[2021-12-25 22:00] VITALS: BP 108/47
[2021-12-25] MEDS: methylPREDNISolone 125MG 2ML VIAL IV SCH (23:52)
[2021-12-25 23:59] VITALS: O2SAT 96
[2021-12-26] MEDS: HEPARIN SOD (PORCINE) 5000UNITS/ML 1ML VIAL/SYRINGE SC SCH ×3 (01:43→17:08)
[2021-12-26] MEDS: IPRATROPIUM 0.02% SOLN 0.5MG 2.5ML NEB INH SCH ×3 (02:00→13:28)
[2021-12-26] MEDS: LEVALBUTEROL 1.25 MG/0.5 ML CONCENTRATE NEB INH SCH ×3 (02:00→13:28)
[2021-12-26 06:00] VITALS: BP 114/63
[2021-12-26] MEDS: methylPREDNISolone 125MG 2ML VIAL IV SCH ×3 (06:16→23:00)
[2021-12-26] MEDS: SYMBICORT 160/4.5MCG INHALER 6GM INH SCH ×2 (08:01→19:36)
[2021-12-26] MEDS: TIOTROPIUM INHALER/CAPSULE (SPIRIVA) INH SCH (08:02)
[2021-12-26 08:06] VITALS: O2SAT 94
[2021-12-26] MEDS: CALCIUM/VITAMIN D 500 MG TAB PO SCH (08:36)
[2021-12-26] MEDS: ALPRAZolam 0.25 MG TAB PO SCH ×2 (08:36→21:17)
[2021-12-26] MEDS: DOCUSATE SODIUM 100MG CAPSULE PO SCH ×2 (08:36→21:16)
[2021-12-26 08:37] LABS: BASO % 0.1 % (0.0-1.0); HEMATOCRIT 34.8 % (36.0-47.0); HEMOGLOBIN 11.6 g/dl (12.0-15.5); LYMPH % 11.5 % (24.0-44.0); MEAN CORPUSCULAR HGB CONC 33.3 g/dl (32.0-36.5); MEAN CORPUSCULAR VOLUME 96.1 fl (80.0-96.0); MONO # 0.1 10^3/uL (0.0-0.8); MONO % 1.2 % (2.0-8.0); NEUTROPHILS # 7.2 10^3/uL (1.5-8.5); NEUTROPHILS % 86.7 % (36.0-66.0); PLATELET COUNT, AUTOMATED 247 10^3/uL (150-450); RED BLOOD COUNT 3.62 10^6/uL (4.00-5.40); WHITE BLOOD COUNT 8.3 10^3/uL (4.0-10.0)
[2021-12-26] MEDS: guaiFENesin ER 600 MG TAB PO SCH ×2 (08:37→21:16)
[2021-12-26] MEDS: ASPIRIN 81MG ENTERIC TABLET PO SCH (08:37)
[2021-12-26] MEDS: PANTOPRAZOLE 40MG TAB (PROTONIX) PO SCH ×2 (08:40→21:17)
[2021-12-26] MEDS: VERAPAMIL 180MG EXTENDED RELEASE TABLET PO SCH (08:40)
[2021-12-26] MEDS: BRIMONIDINE 0.1% OPHTH SOLN 5 ML OU SCH ×2 (08:41→21:17)
[2021-12-26] MEDS: SERTRALINE HCL 25 MG TABLET PO SCH (08:44)
[2021-12-26 09:00] VITALS: O2SAT 93
[2021-12-26] MEDS ORDERED: predniSONE 20 MG TAB PO SCH (09:00)
[2021-12-26 09:08] LABS: CK-MB VALUE MASS 6.1 NG/ML (<3.6); MB/CK RELATIVE INDEX 4.8 (< OR =4)
[2021-12-26 09:12] LABS: BLOOD UREA NITROGEN 29 MG/DL (7-18); CALCIUM LEVEL 9.9 MG/DL (8.8-10.2); CARBON DIOXIDE LEVEL 35 MEQ/L (21-32); CHLORIDE LEVEL 98 MEQ/L (98-107); CREATININE FOR GFR 0.77 MG/DL (0.55-1.30); GLOMERULAR FILTRATION RATE > 60.0 (>32); GLUCOSE, FASTING 140 MG/DL (70-100); MAGNESIUM LEVEL 2.2 MG/DL (1.8-2.4); SODIUM LEVEL 141 MEQ/L (136-145)
[2021-12-26] MEDS: ACETAMINOPHEN TAB 650MG DOSE (2X325MG) PO PRN ×2 (10:23→15:48)
[2021-12-26 14:00] VITALS: BP 144/86
[2021-12-26] MEDS: IPRATROPIUM 0.5MG/ALBUTEROL 2.5MG INH SOL UD 3ML (DUONEB) NEB SCH ×2 (14:00→19:36)
[2021-12-26] MEDS ORDERED: IPRATROPIUM 0.5MG/ALBUTEROL 2.5MG INH SOL UD 3ML (DUONEB) NEB PRN (14:20)
[2021-12-26] MEDS: AZITHROMYCIN INJ 500 MG, VIAL MATE ADAPTER 1 EACH in NS 250 ML IV SCH (15:19)
[2021-12-26] MEDS: cefTRIAXone SOD 1 GM in D5W MINI-BAG PLUS 50 ML IV SCH (17:07)
[2021-12-26 18:00] VITALS: BP 144/81
[2021-12-26] MEDS: ATORVASTATIN 20 MG TAB PO SCH (21:16)
[2021-12-26] MEDS: LATANOPROST 0.005% OPHTH SOLN 2.5 ML OU SCH (21:17)
[2021-12-26] MEDS: SENNA 8.6 MG TAB (SENOKOT) PO SCH (21:17)
[2021-12-26 23:01] VITALS: O2SAT 92
[2021-12-27] VITALS (7 sets, daily range): BP systolic 144–155; BP diastolic 71–88; O2SAT 92–94
[2021-12-27] MEDS: HEPARIN SOD (PORCINE) 5000UNITS/ML 1ML VIAL/SYRINGE SC SCH ×3 (01:09→16:20)
[2021-12-27] MEDS: IPRATROPIUM 0.5MG/ALBUTEROL 2.5MG INH SOL UD 3ML (DUONEB) NEB SCH ×4 (01:13→19:24)
[2021-12-27 06:15] LABS: BASO % 0.1 % (0.0-1.0); HEMATOCRIT 33.8 % (36.0-47.0); HEMOGLOBIN 11.1 g/dl (12.0-15.5); LYMPH # 0.5 10^3/uL (1.5-5.0); LYMPH % 4.7 % (24.0-44.0); MEAN CORPUSCULAR HEMOGLOBIN 32.3 pg (27.0-33.0); MEAN CORPUSCULAR HGB CONC 32.8 g/dl (32.0-36.5); MEAN CORPUSCULAR VOLUME 98.3 fl (80.0-96.0); MONO # 0.4 10^3/uL (0.0-0.8); MONO % 3.6 % (2.0-8.0); NEUTROPHILS # 9.2 10^3/uL (1.5-8.5); NEUTROPHILS % 90.9 % (36.0-66.0); PLATELET COUNT, AUTOMATED 282 10^3/uL (150-450); RED BLOOD COUNT 3.44 10^6/uL (4.00-5.40); WHITE BLOOD COUNT 10.2 10^3/uL (4.0-10.0)
[2021-12-27] MEDS: methylPREDNISolone 125MG 2ML VIAL IV SCH ×2 (06:18→16:20)
[2021-12-27] MEDS: VERAPAMIL 180MG EXTENDED RELEASE TABLET PO SCH ×2 (06:18→20:34)
[2021-12-27 06:33] LABS: BLOOD UREA NITROGEN 30 MG/DL (7-18); CALCIUM LEVEL 9.9 MG/DL (8.8-10.2); CARBON DIOXIDE LEVEL 37 MEQ/L (21-32); CHLORIDE LEVEL 98 MEQ/L (98-107); CREATININE FOR GFR 0.93 MG/DL (0.55-1.30); GLOMERULAR FILTRATION RATE > 60.0 (>32); GLUCOSE, FASTING 135 MG/DL (70-100); MAGNESIUM LEVEL 2.1 MG/DL (1.8-2.4); POTASSIUM SERUM 3.6 MEQ/L (3.5-5.1); SODIUM LEVEL 139 MEQ/L (136-145)
[2021-12-27] MEDS: SYMBICORT 160/4.5MCG INHALER 6GM INH SCH ×2 (07:21→19:24)
[2021-12-27] MEDS: TIOTROPIUM INHALER/CAPSULE (SPIRIVA) INH SCH (07:21)
[2021-12-27] MEDS: ACETAMINOPHEN TAB 650MG DOSE (2X325MG) PO PRN (09:20)
[2021-12-27] MEDS: SERTRALINE HCL 25 MG TABLET PO SCH (09:20)
[2021-12-27] MEDS: PANTOPRAZOLE 40MG TAB (PROTONIX) PO SCH ×2 (09:20→20:34)
[2021-12-27] MEDS: ASPIRIN 81MG ENTERIC TABLET PO SCH (09:20)
[2021-12-27] MEDS: DOCUSATE SODIUM 100MG CAPSULE PO SCH ×2 (09:20→20:34)
[2021-12-27] MEDS: guaiFENesin ER 600 MG TAB PO SCH ×2 (09:21→20:34)
[2021-12-27] MEDS: ALPRAZolam 0.25 MG TAB PO SCH ×2 (09:21→20:34)
[2021-12-27] MEDS: CALCIUM/VITAMIN D 500 MG TAB PO SCH (09:21)
[2021-12-27] MEDS: BRIMONIDINE 0.1% OPHTH SOLN 5 ML OU SCH ×2 (09:21→20:34)
[2021-12-27] MEDS ORDERED: MOM 30ML SUSPENSION UDC PO PRN (09:45)
[2021-12-27] MEDS ORDERED: BISACODYL 10 MG SUPP PR ONE (09:45)
[2021-12-27] MEDS: cefTRIAXone SOD 1 GM in D5W MINI-BAG PLUS 50 ML IV SCH (16:20)
[2021-12-27] MEDS: SENNA 8.6 MG TAB (SENOKOT) PO SCH (20:34)
[2021-12-27] MEDS: ATORVASTATIN 20 MG TAB PO SCH (20:34)
[2021-12-27] MEDS: LATANOPROST 0.005% OPHTH SOLN 2.5 ML OU SCH (20:35)
[2021-12-28] VITALS (8 sets, daily range): BP systolic 128–171; BP diastolic 70–110; O2SAT 86–90
[2021-12-28] MEDS: methylPREDNISolone 125MG 2ML VIAL IV SCH ×4 (01:21→22:31)
[2021-12-28] MEDS: IPRATROPIUM 0.5MG/ALBUTEROL 2.5MG INH SOL UD 3ML (DUONEB) NEB SCH ×4 (02:00→19:19)
[2021-12-28] MEDS: HEPARIN SOD (PORCINE) 5000UNITS/ML 1ML VIAL/SYRINGE SC SCH ×3 (03:26→18:24)
[2021-12-28 07:10] LABS: BASO % 0.1 % (0.0-1.0); HEMATOCRIT 35.3 % (36.0-47.0); HEMOGLOBIN 11.6 g/dl (12.0-15.5); LYMPH # 0.9 10^3/uL (1.5-5.0); LYMPH % 7.2 % (24.0-44.0); MEAN CORPUSCULAR HEMOGLOBIN 32.1 pg (27.0-33.0); MEAN CORPUSCULAR HGB CONC 32.9 g/dl (32.0-36.5); MEAN CORPUSCULAR VOLUME 97.8 fl (80.0-96.0); MONO % 7.8 % (2.0-8.0); NEUTROPHILS # 10.8 10^3/uL (1.5-8.5); NEUTROPHILS % 84.3 % (36.0-66.0); PLATELET COUNT, AUTOMATED 324 10^3/uL (150-450); RED BLOOD COUNT 3.61 10^6/uL (4.00-5.40); WHITE BLOOD COUNT 12.8 10^3/uL (4.0-10.0)
[2021-12-28] MEDS: SYMBICORT 160/4.5MCG INHALER 6GM INH SCH ×2 (07:28→19:19)
[2021-12-28] MEDS: TIOTROPIUM INHALER/CAPSULE (SPIRIVA) INH SCH (07:28)
[2021-12-28 07:31] LABS: BLOOD UREA NITROGEN 32 MG/DL (7-18); CALCIUM LEVEL 10.2 MG/DL (8.8-10.2); CARBON DIOXIDE LEVEL 38 MEQ/L (21-32); CHLORIDE LEVEL 97 MEQ/L (98-107); CREATININE FOR GFR 0.84 MG/DL (0.55-1.30); GLOMERULAR FILTRATION RATE > 60.0 (>32); GLUCOSE, FASTING 98 MG/DL (70-100); MAGNESIUM LEVEL 2.4 MG/DL (1.8-2.4); POTASSIUM SERUM 3.8 MEQ/L (3.5-5.1); SODIUM LEVEL 139 MEQ/L (136-145)
[2021-12-28] MEDS: VERAPAMIL 180MG EXTENDED RELEASE TABLET PO SCH ×2 (09:40→22:33)
[2021-12-28] MEDS: ASPIRIN 81MG ENTERIC TABLET PO SCH (09:40)
[2021-12-28] MEDS: ALPRAZolam 0.25 MG TAB PO SCH ×2 (09:40→22:33)
[2021-12-28] MEDS: DOCUSATE SODIUM 100MG CAPSULE PO SCH ×2 (09:41→21:00)
[2021-12-28] MEDS: CALCIUM/VITAMIN D 500 MG TAB PO SCH (09:41)
[2021-12-28] MEDS: guaiFENesin ER 600 MG TAB PO SCH ×2 (09:41→22:36)
[2021-12-28] MEDS: SERTRALINE HCL 25 MG TABLET PO SCH (09:41)
[2021-12-28] MEDS: PANTOPRAZOLE 40MG TAB (PROTONIX) PO SCH ×2 (09:41→22:33)
[2021-12-28] MEDS: BRIMONIDINE 0.1% OPHTH SOLN 5 ML OU SCH ×2 (09:42→22:32)
[2021-12-28] MEDS ORDERED: FUROSEMIDE 40MG/4ML VIAL (J1940) IV ONE (10:15)
[2021-12-28] MEDS ORDERED: LevoFLOXacin IV 750 MG in IV 1 EA IV SCH (14:00)
[2021-12-28 14:59] LABS: CK-MB VALUE MASS 8.3 NG/ML (<3.6); MB/CK RELATIVE INDEX 3.29 (< OR =4)
[2021-12-28] MEDS: **hydrALAZINE** 10 MG TAB PO SCH ×2 (16:17→22:31)
[2021-12-28 17:03] LABS: CK-MB VALUE MASS 6.9 NG/ML (<3.6); MB/CK RELATIVE INDEX 2.73 (< OR =4)
[2021-12-28] MEDS ORDERED: methylPREDNISolone 125MG 2ML VIAL IV SCH (19:00)
[2021-12-28 20:01] LABS: CK-MB VALUE MASS 7.7 NG/ML (<3.6); MB/CK RELATIVE INDEX 3.41 (< OR =4)
[2021-12-28] MEDS: ATORVASTATIN 20 MG TAB PO SCH (22:30)
[2021-12-28] MEDS: SENNA 8.6 MG TAB (SENOKOT) PO SCH (22:32)
[2021-12-28] MEDS: LATANOPROST 0.005% OPHTH SOLN 2.5 ML OU SCH (22:32)
[2021-12-29] VITALS: BP 147/77
[2021-12-29] MEDS: IPRATROPIUM 0.5MG/ALBUTEROL 2.5MG INH SOL UD 3ML (DUONEB) NEB SCH ×4 (01:00→19:45)
[2021-12-29] MEDS: HEPARIN SOD (PORCINE) 5000UNITS/ML 1ML VIAL/SYRINGE SC SCH ×3 (02:44→18:42)
[2021-12-29 04:00] VITALS: BP 132/60
[2021-12-29 06:03] LABS: BASO % 0.1 % (0.0-1.0); HEMATOCRIT 32.5 % (36.0-47.0); HEMOGLOBIN 10.8 g/dl (12.0-15.5); LYMPH # 0.6 10^3/uL (1.5-5.0); LYMPH % 5.8 % (24.0-44.0); MEAN CORPUSCULAR HEMOGLOBIN 32.6 pg (27.0-33.0); MEAN CORPUSCULAR HGB CONC 33.2 g/dl (32.0-36.5); MEAN CORPUSCULAR VOLUME 98.2 fl (80.0-96.0); MONO # 0.9 10^3/uL (0.0-0.8); MONO % 9.1 % (2.0-8.0); NEUTROPHILS # 8.5 10^3/uL (1.5-8.5); NEUTROPHILS % 84.4 % (36.0-66.0); PLATELET COUNT, AUTOMATED 281 10^3/uL (150-450); RED BLOOD COUNT 3.31 10^6/uL (4.00-5.40); WHITE BLOOD COUNT 10.1 10^3/uL (4.0-10.0)
[2021-12-29] MEDS: **hydrALAZINE** 10 MG TAB PO SCH ×3 (06:05→20:39)
[2021-12-29] MEDS: methylPREDNISolone 125MG 2ML VIAL IV SCH ×3 (06:06→22:15)
[2021-12-29 06:22] LABS: CALCIUM LEVEL 10.1 MG/DL (8.8-10.2); CREATININE FOR GFR 0.96 MG/DL (0.55-1.30); GLOMERULAR FILTRATION RATE 58.5 (>32); MAGNESIUM LEVEL 2.4 MG/DL (1.8-2.4); POTASSIUM SERUM 3.7 MEQ/L (3.5-5.1)
[2021-12-29 07:35] VITALS: BP 174/88
[2021-12-29] MEDS: TIOTROPIUM INHALER/CAPSULE (SPIRIVA) INH SCH (07:50)
[2021-12-29] MEDS: SYMBICORT 160/4.5MCG INHALER 6GM INH SCH ×2 (07:50→19:45)
[2021-12-29] MEDS: DOCUSATE SODIUM 100MG CAPSULE PO SCH ×2 (09:22→20:40)
[2021-12-29] MEDS: SERTRALINE HCL 25 MG TABLET PO SCH (09:23)
[2021-12-29] MEDS: VERAPAMIL 180MG EXTENDED RELEASE TABLET PO SCH ×2 (09:23→20:39)
[2021-12-29] MEDS: PANTOPRAZOLE 40MG TAB (PROTONIX) PO SCH ×2 (09:23→20:39)
[2021-12-29] MEDS: BRIMONIDINE 0.1% OPHTH SOLN 5 ML OU SCH ×2 (09:23→20:41)
[2021-12-29] MEDS: ALPRAZolam 0.25 MG TAB PO SCH ×2 (09:23→20:40)
[2021-12-29] MEDS: guaiFENesin ER 600 MG TAB PO SCH ×2 (09:23→20:39)
[2021-12-29] MEDS: ASPIRIN 81MG ENTERIC TABLET PO SCH (09:23)
[2021-12-29] MEDS: CALCIUM/VITAMIN D 500 MG TAB PO SCH (09:23)
[2021-12-29 12:00] VITALS: BP 126/60
[2021-12-29 16:02] VITALS: BP 138/73
[2021-12-29 20:00] VITALS: BP 152/78
[2021-12-29] MEDS: SENNA 8.6 MG TAB (SENOKOT) PO SCH (20:39)
[2021-12-29] MEDS: ATORVASTATIN 20 MG TAB PO SCH (20:40)
[2021-12-29] MEDS: LATANOPROST 0.005% OPHTH SOLN 2.5 ML OU SCH (20:41)
[2021-12-29] MEDS: ACETAMINOPHEN TAB 650MG DOSE (2X325MG) PO PRN (20:41)
[2021-12-30] VITALS: BP 103/57
[2021-12-30] MEDS: HEPARIN SOD (PORCINE) 5000UNITS/ML 1ML VIAL/SYRINGE SC SCH ×3 (01:58→17:40)
[2021-12-30] MEDS: IPRATROPIUM 0.5MG/ALBUTEROL 2.5MG INH SOL UD 3ML (DUONEB) NEB SCH ×4 (02:00→19:43)
[2021-12-30 04:00] VITALS: BP 117/64
[2021-12-30 05:26] LABS: BASO % 0.2 % (0.0-1.0); HEMATOCRIT 32.3 % (36.0-47.0); HEMOGLOBIN 10.7 g/dl (12.0-15.5); LYMPH # 0.5 10^3/uL (1.5-5.0); MEAN CORPUSCULAR HEMOGLOBIN 32.5 pg (27.0-33.0); MEAN CORPUSCULAR HGB CONC 33.1 g/dl (32.0-36.5); MEAN CORPUSCULAR VOLUME 98.2 fl (80.0-96.0); MONO # 0.4 10^3/uL (0.0-0.8); MONO % 4.2 % (2.0-8.0); NEUTROPHILS # 8.7 10^3/uL (1.5-8.5); NEUTROPHILS % 89.9 % (36.0-66.0); PLATELET COUNT, AUTOMATED 281 10^3/uL (150-450); RED BLOOD COUNT 3.29 10^6/uL (4.00-5.40); WHITE BLOOD COUNT 9.7 10^3/uL (4.0-10.0)
[2021-12-30 05:56] LABS: CREATININE FOR GFR 1.12 MG/DL (0.55-1.30); GLOMERULAR FILTRATION RATE 48.9 (>32); MAGNESIUM LEVEL 2.6 MG/DL (1.8-2.4); POTASSIUM SERUM 3.6 MEQ/L (3.5-5.1)
[2021-12-30] MEDS: methylPREDNISolone 125MG 2ML VIAL IV SCH ×3 (06:08→22:34)
[2021-12-30] MEDS: **hydrALAZINE** 10 MG TAB PO SCH ×3 (06:08→22:34)
[2021-12-30 07:37] VITALS: BP 174/78
[2021-12-30] MEDS: SYMBICORT 160/4.5MCG INHALER 6GM INH SCH ×2 (08:05→19:43)
[2021-12-30] MEDS: TIOTROPIUM INHALER/CAPSULE (SPIRIVA) INH SCH (08:05)
[2021-12-30] MEDS: SERTRALINE HCL 25 MG TABLET PO SCH (08:58)
[2021-12-30] MEDS: DOCUSATE SODIUM 100MG CAPSULE PO SCH ×2 (08:58→21:06)
[2021-12-30] MEDS: ASPIRIN 81MG ENTERIC TABLET PO SCH (08:58)
[2021-12-30] MEDS: CALCIUM/VITAMIN D 500 MG TAB PO SCH (08:58)
[2021-12-30] MEDS: PANTOPRAZOLE 40MG TAB (PROTONIX) PO SCH ×2 (08:58→21:06)
[2021-12-30] MEDS: VERAPAMIL 180MG EXTENDED RELEASE TABLET PO SCH ×2 (08:58→21:06)
[2021-12-30] MEDS: guaiFENesin ER 600 MG TAB PO SCH ×2 (08:59→21:06)
[2021-12-30] MEDS: ALPRAZolam 0.25 MG TAB PO SCH ×2 (08:59→21:06)
[2021-12-30] MEDS: BRIMONIDINE 0.1% OPHTH SOLN 5 ML OU SCH ×2 (08:59→21:07)
[2021-12-30 12:00] VITALS: BP 151/73
[2021-12-30] MEDS: ACETAMINOPHEN TAB 650MG DOSE (2X325MG) PO PRN ×2 (14:33→21:06)
[2021-12-30 15:54] VITALS: BP 162/70
[2021-12-30 20:00] VITALS: BP 159/83
[2021-12-30] MEDS: ATORVASTATIN 20 MG TAB PO SCH (21:06)
[2021-12-30] MEDS: SENNA 8.6 MG TAB (SENOKOT) PO SCH (21:06)
[2021-12-30] MEDS: LATANOPROST 0.005% OPHTH SOLN 2.5 ML OU SCH (21:07)
[2021-12-31] VITALS (7 sets, daily range): BP systolic 111–172; BP diastolic 59–77
[2021-12-31] MEDS: IPRATROPIUM 0.5MG/ALBUTEROL 2.5MG INH SOL UD 3ML (DUONEB) NEB SCH ×4 (02:00→19:53)
[2021-12-31] MEDS: HEPARIN SOD (PORCINE) 5000UNITS/ML 1ML VIAL/SYRINGE SC SCH ×3 (02:01→17:22)
[2021-12-31 05:37] LABS: BASO % 0.1 % (0.0-1.0); HEMATOCRIT 32.3 % (36.0-47.0); HEMOGLOBIN 10.4 g/dl (12.0-15.5); LYMPH # 0.4 10^3/uL (1.5-5.0); LYMPH % 2.8 % (24.0-44.0); MEAN CORPUSCULAR HEMOGLOBIN 31.5 pg (27.0-33.0); MEAN CORPUSCULAR HGB CONC 32.2 g/dl (32.0-36.5); MEAN CORPUSCULAR VOLUME 97.9 fl (80.0-96.0); MONO # 0.6 10^3/uL (0.0-0.8); MONO % 4.3 % (2.0-8.0); NEUTROPHILS # 12.2 10^3/uL (1.5-8.5); NEUTROPHILS % 91.5 % (36.0-66.0); PLATELET COUNT, AUTOMATED 301 10^3/uL (150-450); WHITE BLOOD COUNT 13.3 10^3/uL (4.0-10.0)
[2021-12-31 06:02] LABS: CALCIUM LEVEL 10.6 MG/DL (8.8-10.2); CREATININE FOR GFR 0.94 MG/DL (0.55-1.30); GLOMERULAR FILTRATION RATE 59.8 (>32); MAGNESIUM LEVEL 2.5 MG/DL (1.8-2.4); POTASSIUM SERUM 3.8 MEQ/L (3.5-5.1)
[2021-12-31] MEDS: methylPREDNISolone 125MG 2ML VIAL IV SCH (06:28)
[2021-12-31] MEDS: **hydrALAZINE** 10 MG TAB PO SCH ×3 (06:28→22:41)
[2021-12-31] MEDS: TIOTROPIUM INHALER/CAPSULE (SPIRIVA) INH SCH (07:12)
[2021-12-31] MEDS: SYMBICORT 160/4.5MCG INHALER 6GM INH SCH ×2 (07:12→19:54)
[2021-12-31] MEDS: SERTRALINE HCL 25 MG TABLET PO SCH (09:16)
[2021-12-31] MEDS: ALPRAZolam 0.25 MG TAB PO SCH ×2 (09:16→21:15)
[2021-12-31] MEDS: PANTOPRAZOLE 40MG TAB (PROTONIX) PO SCH ×2 (09:17→21:15)
[2021-12-31] MEDS: DOCUSATE SODIUM 100MG CAPSULE PO SCH ×2 (09:17→21:15)
[2021-12-31] MEDS: CALCIUM/VITAMIN D 500 MG TAB PO SCH (09:17)
[2021-12-31] MEDS: guaiFENesin ER 600 MG TAB PO SCH ×2 (09:17→21:15)
[2021-12-31] MEDS: ASPIRIN 81MG ENTERIC TABLET PO SCH (09:17)
[2021-12-31] MEDS: VERAPAMIL 180MG EXTENDED RELEASE TABLET PO SCH ×2 (09:17→21:18)
[2021-12-31] MEDS: BRIMONIDINE 0.1% OPHTH SOLN 5 ML OU SCH ×2 (09:18→21:18)
[2021-12-31] MEDS ORDERED: MORPHINE 2 MG/ML 1ML VIAL IV PRN (12:50)
[2021-12-31] MEDS ORDERED: LORazepam 2 MG/ML VIAL IV PRN (12:50)
[2021-12-31] MEDS ORDERED: SCOPOLAMINE 1MG TRANSDERMAL PATCH TOP PRN (12:50)
[2021-12-31] MEDS: predniSONE 20 MG TAB PO SCH (21:15)
[2021-12-31] MEDS: SENNA 8.6 MG TAB (SENOKOT) PO SCH (21:15)
[2021-12-31] MEDS: ACETAMINOPHEN TAB 650MG DOSE (2X325MG) PO PRN (21:16)
[2021-12-31] MEDS: ATORVASTATIN 20 MG TAB PO SCH (21:16)
[2021-12-31] MEDS: LATANOPROST 0.005% OPHTH SOLN 2.5 ML OU SCH (21:18)
[2022-01-01] MEDS: HEPARIN SOD (PORCINE) 5000UNITS/ML 1ML VIAL/SYRINGE SC SCH ×3 (02:13→18:44)
[2022-01-01] MEDS: IPRATROPIUM 0.5MG/ALBUTEROL 2.5MG INH SOL UD 3ML (DUONEB) NEB SCH ×4 (02:19→19:50)
[2022-01-01 03:52] VITALS: BP 107/54
[2022-01-01 05:05] LABS: HEMATOCRIT 31.1 % (36.0-47.0); HEMOGLOBIN 10.3 g/dl (12.0-15.5); MEAN CORPUSCULAR HEMOGLOBIN 32.3 pg (27.0-33.0); MEAN CORPUSCULAR HGB CONC 33.1 g/dl (32.0-36.5); MEAN CORPUSCULAR VOLUME 97.5 fl (80.0-96.0); PLATELET COUNT, AUTOMATED 291 10^3/uL (150-450); RED BLOOD COUNT 3.19 10^6/uL (4.00-5.40); WHITE BLOOD COUNT 13.3 10^3/uL (4.0-10.0)
[2022-01-01 05:25] LABS: BLOOD UREA NITROGEN 42 MG/DL (7-18); CALCIUM LEVEL 10.9 MG/DL (8.8-10.2); CARBON DIOXIDE LEVEL 40 MEQ/L (21-32); CHLORIDE LEVEL 97 MEQ/L (98-107); CREATININE FOR GFR 0.86 MG/DL (0.55-1.30); GLOMERULAR FILTRATION RATE > 60.0 (>32); GLUCOSE, FASTING 124 MG/DL (70-100); MAGNESIUM LEVEL 2.5 MG/DL (1.8-2.4); POTASSIUM SERUM 3.7 MEQ/L (3.5-5.1); SODIUM LEVEL 139 MEQ/L (136-145)
[2022-01-01] MEDS: **hydrALAZINE** 10 MG TAB PO SCH ×3 (05:58→20:52)
[2022-01-01] MEDS: TIOTROPIUM INHALER/CAPSULE (SPIRIVA) INH SCH (07:21)
[2022-01-01] MEDS: SYMBICORT 160/4.5MCG INHALER 6GM INH SCH ×2 (07:21→19:50)
[2022-01-01 07:34] VITALS: BP 109/53
[2022-01-01 09:21] VITALS: BP 141/62
[2022-01-01] MEDS: guaiFENesin ER 600 MG TAB PO SCH ×2 (09:28→20:53)
[2022-01-01] MEDS: CALCIUM/VITAMIN D 500 MG TAB PO SCH (09:28)
[2022-01-01] MEDS: DOCUSATE SODIUM 100MG CAPSULE PO SCH ×2 (09:28→20:52)
[2022-01-01] MEDS: VERAPAMIL 180MG EXTENDED RELEASE TABLET PO SCH ×2 (09:28→20:53)
[2022-01-01] MEDS: ASPIRIN 81MG ENTERIC TABLET PO SCH (09:28)
[2022-01-01] MEDS: predniSONE 20 MG TAB PO SCH ×2 (09:29→20:53)
[2022-01-01] MEDS: BRIMONIDINE 0.1% OPHTH SOLN 5 ML OU SCH ×2 (09:29→20:52)
[2022-01-01] MEDS: ALPRAZolam 0.25 MG TAB PO SCH ×2 (09:29→20:52)
[2022-01-01] MEDS: PANTOPRAZOLE 40MG TAB (PROTONIX) PO SCH ×2 (09:29→20:53)
[2022-01-01] MEDS: SERTRALINE HCL 25 MG TABLET PO SCH (09:29)
[2022-01-01 12:10] VITALS: BP 136/64
[2022-01-01 15:58] VITALS: BP 127/60
[2022-01-01 20:00] VITALS: BP 136/62
[2022-01-01] MEDS: LATANOPROST 0.005% OPHTH SOLN 2.5 ML OU SCH (20:52)
[2022-01-01] MEDS: SENNA 8.6 MG TAB (SENOKOT) PO SCH (20:52)
[2022-01-01] MEDS: ATORVASTATIN 20 MG TAB PO SCH (20:53)
[2022-01-02] VITALS: BP 111/59
[2022-01-02] MEDS: IPRATROPIUM 0.5MG/ALBUTEROL 2.5MG INH SOL UD 3ML (DUONEB) NEB SCH ×4 (01:05→18:56)
[2022-01-02] MEDS: HEPARIN SOD (PORCINE) 5000UNITS/ML 1ML VIAL/SYRINGE SC SCH ×3 (01:27→17:35)
[2022-01-02 04:00] VITALS: BP 128/59
[2022-01-02] MEDS: **hydrALAZINE** 10 MG TAB PO SCH ×2 (06:21→14:10)
[2022-01-02] MEDS: TIOTROPIUM INHALER/CAPSULE (SPIRIVA) INH SCH (07:25)
[2022-01-02] MEDS: SYMBICORT 160/4.5MCG INHALER 6GM INH SCH ×2 (07:26→18:56)
[2022-01-02 07:44] VITALS: BP 132/61
[2022-01-02] MEDS: predniSONE 20 MG TAB PO SCH ×2 (09:04→20:00)
[2022-01-02] MEDS: CALCIUM/VITAMIN D 500 MG TAB PO SCH (09:04)
[2022-01-02] MEDS: SERTRALINE HCL 25 MG TABLET PO SCH (09:04)
[2022-01-02] MEDS: DOCUSATE SODIUM 100MG CAPSULE PO SCH ×2 (09:04→20:01)
[2022-01-02] MEDS: ALPRAZolam 0.25 MG TAB PO SCH ×2 (09:04→20:01)
[2022-01-02] MEDS: ASPIRIN 81MG ENTERIC TABLET PO SCH (09:05)
[2022-01-02] MEDS: PANTOPRAZOLE 40MG TAB (PROTONIX) PO SCH ×2 (09:05→20:01)
[2022-01-02] MEDS: guaiFENesin ER 600 MG TAB PO SCH ×2 (09:05→20:01)
[2022-01-02] MEDS: BRIMONIDINE 0.1% OPHTH SOLN 5 ML OU SCH ×2 (09:05→20:01)
[2022-01-02] MEDS: VERAPAMIL 180MG EXTENDED RELEASE TABLET PO SCH ×2 (09:22→20:03)
[2022-01-02 11:59] VITALS: BP 131/63
[2022-01-02 16:15] VITALS: BP 149/72
[2022-01-02] MEDS: ATORVASTATIN 20 MG TAB PO SCH (20:00)
[2022-01-02] MEDS: LATANOPROST 0.005% OPHTH SOLN 2.5 ML OU SCH (20:01)
[2022-01-02] MEDS: SENNA 8.6 MG TAB (SENOKOT) PO SCH (20:01)
[2022-01-03] VITALS: BP 123/86
[2022-01-03] MEDS: **hydrALAZINE** 10 MG TAB PO SCH ×4 (00:02→22:00)
[2022-01-03] MEDS: HEPARIN SOD (PORCINE) 5000UNITS/ML 1ML VIAL/SYRINGE SC SCH ×3 (01:34→18:17)
[2022-01-03] MEDS: IPRATROPIUM 0.5MG/ALBUTEROL 2.5MG INH SOL UD 3ML (DUONEB) NEB SCH ×4 (02:28→19:34)
[2022-01-03] MEDS: TIOTROPIUM INHALER/CAPSULE (SPIRIVA) INH SCH (06:58)
[2022-01-03] MEDS: SYMBICORT 160/4.5MCG INHALER 6GM INH SCH ×2 (06:59→19:34)
[2022-01-03 08:00] VITALS: BP 135/65
[2022-01-03 09:14] LABS: HEMATOCRIT 30.1 % (36.0-47.0); HEMOGLOBIN 10.1 g/dl (12.0-15.5); MEAN CORPUSCULAR HGB CONC 33.6 g/dl (32.0-36.5); MEAN CORPUSCULAR VOLUME 95.3 fl (80.0-96.0); PLATELET COUNT, AUTOMATED 298 10^3/uL (150-450); RED BLOOD COUNT 3.16 10^6/uL (4.00-5.40)
[2022-01-03] MEDS: guaiFENesin ER 600 MG TAB PO SCH ×2 (09:56→20:25)
[2022-01-03] MEDS: SERTRALINE HCL 25 MG TABLET PO SCH (09:56)
[2022-01-03] MEDS: DOCUSATE SODIUM 100MG CAPSULE PO SCH ×2 (09:56→20:26)
[2022-01-03] MEDS: BRIMONIDINE 0.1% OPHTH SOLN 5 ML OU SCH ×2 (09:56→20:25)
[2022-01-03] MEDS: ALPRAZolam 0.25 MG TAB PO SCH ×2 (09:56→20:25)
[2022-01-03] MEDS: VERAPAMIL 180MG EXTENDED RELEASE TABLET PO SCH ×2 (09:56→20:26)
[2022-01-03] MEDS: CALCIUM/VITAMIN D 500 MG TAB PO SCH (09:57)
[2022-01-03] MEDS: ASPIRIN 81MG ENTERIC TABLET PO SCH (09:57)
[2022-01-03] MEDS: predniSONE 20 MG TAB PO SCH ×2 (09:57→20:25)
[2022-01-03] MEDS: PANTOPRAZOLE 40MG TAB (PROTONIX) PO SCH ×2 (09:57→20:25)
[2022-01-03 10:16] LABS: BLOOD UREA NITROGEN 38 MG/DL (7-18); CARBON DIOXIDE LEVEL 35 MEQ/L (21-32); CREATININE FOR GFR 0.84 MG/DL (0.55-1.30); GLOMERULAR FILTRATION RATE > 60.0 (>32); GLUCOSE, FASTING 118 MG/DL (70-100); MAGNESIUM LEVEL 2.4 MG/DL (1.8-2.4)
[2022-01-03 10:52] LABS: CHLORIDE LEVEL 99 MEQ/L (98-107); POTASSIUM SERUM 3.8 MEQ/L (3.5-5.1); SODIUM LEVEL 142 MEQ/L (136-145)
[2022-01-03 16:38] VITALS: BP 126/60
[2022-01-03] MEDS: LATANOPROST 0.005% OPHTH SOLN 2.5 ML OU SCH (20:25)
[2022-01-03] MEDS: ATORVASTATIN 20 MG TAB PO SCH (20:25)
[2022-01-03] MEDS: SENNA 8.6 MG TAB (SENOKOT) PO SCH (20:26)
[2022-01-04] VITALS: BP 101/57
[2022-01-04] MEDS: IPRATROPIUM 0.5MG/ALBUTEROL 2.5MG INH SOL UD 3ML (DUONEB) NEB SCH ×3 (01:16→13:46)
[2022-01-04] MEDS: HEPARIN SOD (PORCINE) 5000UNITS/ML 1ML VIAL/SYRINGE SC SCH ×2 (01:29→09:09)
[2022-01-04] MEDS: **hydrALAZINE** 10 MG TAB PO SCH ×2 (05:27→14:35)
[2022-01-04] MEDS: SYMBICORT 160/4.5MCG INHALER 6GM INH SCH (07:46)
[2022-01-04] MEDS: TIOTROPIUM INHALER/CAPSULE (SPIRIVA) INH SCH (07:46)
[2022-01-04 08:00] VITALS: BP 125/56
[2022-01-04] MEDS: DOCUSATE SODIUM 100MG CAPSULE PO SCH (08:32)
[2022-01-04] MEDS: PANTOPRAZOLE 40MG TAB (PROTONIX) PO SCH (08:32)
[2022-01-04] MEDS: SERTRALINE HCL 25 MG TABLET PO SCH (08:32)
[2022-01-04] MEDS: CALCIUM/VITAMIN D 500 MG TAB PO SCH (08:32)
[2022-01-04] MEDS: ASPIRIN 81MG ENTERIC TABLET PO SCH (08:32)
[2022-01-04] MEDS: guaiFENesin ER 600 MG TAB PO SCH (08:32)
[2022-01-04] MEDS: VERAPAMIL 180MG EXTENDED RELEASE TABLET PO SCH (08:32)
[2022-01-04] MEDS: ALPRAZolam 0.25 MG TAB PO SCH (08:32)
[2022-01-04] MEDS: predniSONE 20 MG TAB PO SCH (08:32)
[2022-01-04] MEDS: BRIMONIDINE 0.1% OPHTH SOLN 5 ML OU SCH (08:33)
[2022-01-04] MEDS ORDERED: PRED10TA2 PO (10:22)
[2022-01-04 14:35] VITALS: BP 122/60
== END 2022-01-04 15:53 | disposition home health service (06) | DRG 193 ==
LOC: M MSPAV 13:07 → M PCU 12-28 15:39
PROVIDERS: ADMIT Family Medicine; ATTEND Internal Medicine
DX: J18.9 Pneumonia, unspecified organism (principal); J96.21 Acute and chronic respiratory failure with hypoxia; I24.8 Other forms of acute ischemic heart disease; J44.1 Chronic obstructive pulmonary disease with (acute) exacerbation; J44.0 Chronic obstructive pulmonary disease with (acute) lower respiratory infection; I10 Essential (primary) hypertension; E78.5 Hyperlipidemia, unspecified; G47.33 Obstructive sleep apnea (adult) (pediatric); K21.9 Gastro-esophageal reflux disease without esophagitis; K58.1 Irritable bowel syndrome with constipation; B97.81 Human metapneumovirus as the cause of diseases classified elsewhere; F41.9 Anxiety disorder, unspecified; N28.1 Cyst of kidney, acquired; N28.89 Other specified disorders of kidney and ureter; I83.90 Asymptomatic varicose veins of unspecified lower extremity; Z87.891 Personal history of nicotine dependence; J20.8 Acute bronchitis due to other specified organisms; Z99.81 Dependence on supplemental oxygen; R91.1 Solitary pulmonary nodule; Z86.73 Personal history of transient ischemic attack (TIA), and cerebral infarction without residual deficits; F32.A Depression, unspecified; Z66 Do not resuscitate; Z79.82 Long term (current) use of aspirin; Z79.899 Other long term (current) drug therapy; Z88.2 Allergy status to sulfonamides; Z88.6 Allergy status to analgesic agent; Z20.822 Contact with and (suspected) exposure to COVID-19

== ENCOUNTER 2022-01-21 10:41 | Emergency (ER) | payer MEDICARE ==
[~2022-01-21] VITALS: Ht 152.4 cm; Wt 54.5 kg
[~2022-01-21 10:41] MED LIST changes: +ALBU8.5H INH; +D200CAP3 PO; +PRED10TA2 PO; +SERT25TA21 PO; -VERAPAMIL 180MG EXTENDED RELEASE TABLET PO SCH
[2022-01-21] MEDS ORDERED: MOM 30ML SUSPENSION UDC PO ONE ×2 (13:50→15:50)
[2022-01-21] MEDS ORDERED: GLYCERIN ADULT SUPP PR ONE (13:50)
[2022-01-21] MEDS ORDERED: LACT20EL PO (15:53)
[2022-01-21] MEDS ORDERED: SANI2SUP PR (15:53)
[2022-01-21 16:12] VITALS: BP 105/52
== END 2022-01-21 16:10 | disposition home or self-care (01) ==
LOC: M ED 10:41
DX: K56.41 Fecal impaction (principal); I10 Essential (primary) hypertension; E78.5 Hyperlipidemia, unspecified; J44.9 Chronic obstructive pulmonary disease, unspecified; K57.92 Diverticulitis of intestine, part unspecified, without perforation or abscess without bleeding; Z88.2 Allergy status to sulfonamides; Z88.6 Allergy status to analgesic agent; Z79.899 Other long term (current) drug therapy; Z79.82 Long term (current) use of aspirin; Z79.51 Long term (current) use of inhaled steroids

== ENCOUNTER → 2022-01-29 | Outpatient (REF) | payer MEDICARE ==
[~2022-01-29] MED LIST changes: +LACT20EL PO; +SANI2SUP PR
== END ==
LOC: M LAB REF 16:52
PROVIDERS: ATTEND Internal Medicine Pulmonary Disease
DX: J43.2 Centrilobular emphysema (principal)

== ENCOUNTER → 2022-02-07 | Outpatient (REF) | payer MEDICARE ==
[2022-02-07 15:08] LABS: APPEARANCE, URINE CLEAR (CLEAR); BACTERIA, URINE AUTO NEGATIVE (NEGATIVE); BILIRUBIN, URINE AUTO NEGATIVE (NEGATIVE); BLOOD, URINE BLOOD NEGATIVE (NEGATIVE); COLOR, URINE YELLOW (YELLOW); GLUCOSE, URINE (UA) AUTO NEGATIVE (NEGATIVE); KETONE, URINE AUTO NEGATIVE (NEGATIVE); LEUKOCYTE ESTERASE, URINE AUTO TRACE (NEGATIVE); NITRITE, URINE AUTO NEGATIVE (NEGATIVE); PROTEIN, URINE AUTO NEGATIVE (NEGATIVE); RBC, URINE AUTO 0 /HPF (0-3); SQUAMOUS EPITHELIAL CELL UR AU 0 /HPF (0-6); UROBILINOGEN, URINE AUTO 0.2 mg/dL (0.0-2.0); WBC, URINE AUTO 2 /HPF (0-3)
== END ==
LOC: M LAB REF 14:42
PROVIDERS: ATTEND Physician Assistant
DX: F44.89 Other dissociative and conversion disorders (principal)

== ENCOUNTER → 2022-04-18 | Outpatient (CLI) | payer MEDICARE ==
[2022-04-18 14:37] LABS: BASO % 0.3 % (0.0-1.0); EOS # 0.1 10^3/uL (0.0-0.5); EOS % 1.7 % (0.0-3.0); HEMATOCRIT 30.7 % (36.0-47.0); HEMOGLOBIN 9.5 g/dl (12.0-15.5); LYMPH # 0.9 10^3/uL (1.5-5.0); MEAN CORPUSCULAR HEMOGLOBIN 30.9 pg (27.0-33.0); MEAN CORPUSCULAR HGB CONC 30.9 g/dl (32.0-36.5); MONO # 0.5 10^3/uL (0.0-0.8); MONO % 7.9 % (2.0-8.0); NEUTROPHILS # 4.8 10^3/uL (1.5-8.5); NEUTROPHILS % 75.8 % (36.0-66.0); PLATELET COUNT, AUTOMATED 256 10^3/uL (150-450); RED BLOOD COUNT 3.07 10^6/uL (4.00-5.40); WHITE BLOOD COUNT 6.3 10^3/uL (4.0-10.0)
[2022-04-18 16:28] LABS: CREATININE, URINE 80.4 MG/DL; MALB URINE SIEMENS 38.1 MG/L; MAU/CREAT RATIO 47.3 MCG/MG (0.0-30.0)
[2022-04-18 18:22] LABS: CHOLESTEROL RISK RATIO 2.379 (<5); FREE T4 0.76 NG/DL (0.76-1.46); THYROID STIMULATING HORMONE 2.64 uIU/ML (0.358-3.740)
[2022-04-18 18:53] LABS: TOTAL 25(OH) VITAMIN D 129.9 NG/ML (30.0-100.0)
[2022-04-18 18:54] LABS: FOLATE 20.4 NG/ML (>5.4)
[2022-04-18 20:25] LABS: HEMOGLOBIN A1c 5.2 %
== END ==
LOC: M PLALAB 12:08
PROVIDERS: ATTEND Internal Medicine Hematology
DX: D50.9 Iron deficiency anemia, unspecified (principal); I10 Essential (primary) hypertension; Z79.899 Other long term (current) drug therapy

== ENCOUNTER → 2022-10-16 | Outpatient (CLI) | payer MEDICARE ==
[2022-10-16 18:09] LABS: HEMATOCRIT 29.6 % (36.0-47.0); HEMOGLOBIN 9.2 g/dl (12.0-15.5); MEAN CORPUSCULAR HEMOGLOBIN 30.9 pg (27.0-33.0); MEAN CORPUSCULAR HGB CONC 31.1 g/dl (32.0-36.5); MEAN CORPUSCULAR VOLUME 99.3 fl (80.0-96.0); PLATELET COUNT, AUTOMATED 218 10^3/uL (150-450); RED BLOOD COUNT 2.98 10^6/uL (4.00-5.40)
[2022-10-16 18:16] LABS: C REACTIVE PROTEIN QUANTITATIV < 0.40 MG/DL (<1.0)
[2022-10-16 18:17] LABS: IRON (FE) 112 UG/DL (50-170); PERCENT SATURATION 29.8 % (13.2-45.0); TOTAL IRON BINDING CAPACITY 376 UG/DL (250-425)
[2022-10-16 18:50] LABS: ALBUMIN 3.8 G/DL (3.2-5.2); ALKALINE PHOSPHATASE 95 U/L (46-116); ALT/SGPT 16 U/L (7.0-40); AST/SGOT 52 U/L (<34); BILIRUBIN,TOTAL 0.4 MG/DL (0.3-1.2); BLOOD UREA NITROGEN 25 MG/DL (9-23); CALCIUM LEVEL 9.5 MG/DL (8.3-10.6); CARBON DIOXIDE LEVEL 33 MMOL/L (20-31); CHLORIDE LEVEL 101 MMOL/L (98-107); CHOLESTEROL LEVEL 191 MG/DL (<200); CHOLESTEROL RISK RATIO 2.91 (<5); CREATININE FOR GFR 0.96 MG/DL (0.55-1.30); FERRITIN 18.7 NG/ML (7.3-270.7); FREE T4 0.95 NG/DL (0.89-1.76); GLOMERULAR FILTRATION RATE 58.4 (>32); GLUCOSE, FASTING 83 MG/DL (74-106); HDL CHOLESTEROL 65.6 MG/DL (>40); LDL CHOLESTEROL 107.8 MG/DL (<100); NON-HDL-C 125 MG/DL; POTASSIUM SERUM 4.6 MMOL/L (3.5-5.1); SODIUM LEVEL 141 MMOL/L (136-145); THYROID STIMULATING HORMONE 2.063 uIU/ML (0.55-4.78); TOTAL 25(OH) VITAMIN D 108.2 NG/ML (20.0-100.0); TOTAL PROTEIN 6.5 G/DL (5.7-8.2); TRIGLYCERIDES LEVEL 88 MG/DL (<150); VITAMIN B12 LEVEL 317 PG/ML (211-911)
== END ==
LOC: M PLALAB 16:13
PROVIDERS: ATTEND Internal Medicine Hematology
DX: I10 Essential (primary) hypertension (principal); D50.9 Iron deficiency anemia, unspecified

== ENCOUNTER 2022-10-31 12:30 | Outpatient (CLI) | payer MEDICARE ==
[~2022-10-31] VITALS: Ht 156.2 cm; Wt 41.0 kg
[~2022-10-31 12:30] MED LIST changes: +ALBUTEROL SULFATE 2.5MG/0.5ML INH NEB SOLN INH PRN; +EPINEPHrine INJ 1 MG/ML 1ML AMP IM PRN; +FERRIC CARBOXYMALTOSE IV ONE; +NS 1,000 ML IV SCH; +NS IV ONE; +diphenhydrAMINE 50MG/ML VIAL IV PRN; +methylPREDNISolone 125MG 2ML VIAL IV PRN
[2022-10-31 13:07] VITALS: BP 162/72
[2022-10-31 14:09] VITALS: BP 120/58
== END 2022-10-31 14:10 | disposition home or self-care (01) ==
LOC: M INFU 12:30
PROVIDERS: ATTEND Internal Medicine Hematology
DX: D64.9 Anemia, unspecified (principal); Z88.2 Allergy status to sulfonamides; Z88.8 Allergy status to other drugs, medicaments and biological substances
CPT/HCPCS: 96365; J1439

== ENCOUNTER → 2023-04-14 | Outpatient (CLI) | payer MEDICARE ==
[~2023-04-14] MED LIST changes: -ALBUTEROL SULFATE 2.5MG/0.5ML INH NEB SOLN INH PRN; -EPINEPHrine INJ 1 MG/ML 1ML AMP IM PRN; -FERRIC CARBOXYMALTOSE IV ONE; -NS 1,000 ML IV SCH; -NS IV ONE; +SENN-186 PO; -SENN-80 PO; -diphenhydrAMINE 50MG/ML VIAL IV PRN; -methylPREDNISolone 125MG 2ML VIAL IV PRN
[2023-04-14 17:36] LABS: HEMATOCRIT 32.7 % (36.0-47.0); HEMOGLOBIN 10.3 g/dl (12.0-15.5); MEAN CORPUSCULAR HEMOGLOBIN 32.5 pg (27.0-33.0); MEAN CORPUSCULAR HGB CONC 31.5 g/dl (32.0-36.5); MEAN CORPUSCULAR VOLUME 103.2 fl (80.0-96.0); PLATELET COUNT, AUTOMATED 226 10^3/uL (150-450); RED BLOOD COUNT 3.17 10^6/uL (4.00-5.40); WHITE BLOOD COUNT 6.7 10^3/uL (4.0-10.0)
[2023-04-14 17:38] LABS: TOTAL IRON BINDING CAPACITY 287 UG/DL (250-425)
[2023-04-14 17:39] LABS: ALKALINE PHOSPHATASE 105 U/L (46-116); ALT/SGPT 25 U/L (7.0-40); AST/SGOT 45 U/L (<34); BILIRUBIN,TOTAL 0.3 MG/DL (0.3-1.2); BLOOD UREA NITROGEN 27 MG/DL (9-23); C REACTIVE PROTEIN QUANTITATIV < 0.40 MG/DL (<1.0); CALCIUM LEVEL 10.3 MG/DL (8.3-10.6); CARBON DIOXIDE LEVEL 33 MMOL/L (20-31); CHLORIDE LEVEL 104 MMOL/L (98-107); CREATININE FOR GFR 0.82 MG/DL (0.55-1.30); FERRITIN 185.2 NG/ML (7.3-270.7); GLOMERULAR FILTRATION RATE > 60.0 (>32); GLUCOSE, FASTING 79 MG/DL (74-106); IRON (FE) 86 UG/DL (50-170); POTASSIUM SERUM 4.3 MMOL/L (3.5-5.1); SODIUM LEVEL 143 MMOL/L (136-145); THYROID STIMULATING HORMONE 1.872 uIU/ML (0.55-4.78); TOTAL 25(OH) VITAMIN D 99.3 NG/ML (20.0-100.0); TOTAL PROTEIN 6.6 G/DL (5.7-8.2)
[2023-04-14 17:40] LABS: VITAMIN B12 LEVEL 322 PG/ML (211-911)
[2023-04-14 17:41] LABS: FREE T4 0.93 NG/DL (0.89-1.76)
[2023-04-14 18:12] LABS: HEMOGLOBIN A1c 5.2 % (4.0-6.0)
== END ==
LOC: M PLALAB 15:25
PROVIDERS: ATTEND Internal Medicine Hematology
DX: D50.9 Iron deficiency anemia, unspecified (principal); E78.2 Mixed hyperlipidemia; Z79.899 Other long term (current) drug therapy

== ENCOUNTER → 2023-11-11 | Outpatient (CLI) | payer MEDICARE ==
[~2023-11-11] MED LIST changes: -MIRA1POW3 PO; +MIRA33506 PO
[2023-11-11 17:30] LABS: HEMATOCRIT 31.1 % (36.0-47.0); HEMOGLOBIN 9.9 g/dl (12.0-15.5); MEAN CORPUSCULAR HEMOGLOBIN 32.1 pg (27.0-33.0); MEAN CORPUSCULAR HGB CONC 31.8 g/dl (32.0-36.5); PLATELET COUNT, AUTOMATED 291 10^3/uL (150-450); RED BLOOD COUNT 3.08 10^6/uL (4.00-5.40); WHITE BLOOD COUNT 7.9 10^3/uL (4.0-10.0)
[2023-11-11 17:49] LABS: HEMOGLOBIN A1c 5.1 % (4.0-6.0)
[2023-11-11 17:53] LABS: C REACTIVE PROTEIN QUANTITATIV < 0.40 MG/DL (<1.0)
[2023-11-11 17:55] LABS: ALKALINE PHOSPHATASE 102 U/L (46-116); ALT/SGPT 14 U/L (7.0-40); AST/SGOT 34 U/L (<34); BILIRUBIN,TOTAL 0.2 MG/DL (0.3-1.2); BLOOD UREA NITROGEN 31 MG/DL (9-23); CALCIUM LEVEL 9.2 MG/DL (8.3-10.6); CARBON DIOXIDE LEVEL 34 MMOL/L (20-31); CHLORIDE LEVEL 100 MMOL/L (98-107); CREATININE FOR GFR 0.85 MG/DL (0.55-1.30); GLOMERULAR FILTRATION RATE > 60.0 (>32); GLUCOSE, FASTING 89 MG/DL (74-106); POTASSIUM SERUM 4.9 MMOL/L (3.5-5.1); SODIUM LEVEL 137 MMOL/L (136-145); TOTAL PROTEIN 6.8 G/DL (5.7-8.2)
[2023-11-11 17:56] LABS: FREE T4 0.96 NG/DL (0.89-1.76)
[2023-11-11 17:57] LABS: FERRITIN 31.7 NG/ML (7.3-270.7); TOTAL 25(OH) VITAMIN D 87.5 NG/ML (20.0-100.0)
[2023-11-11 18:00] LABS: THYROID STIMULATING HORMONE 2.402 uIU/ML (0.55-4.78)
[2023-11-11 18:07] LABS: VITAMIN B12 LEVEL 471 PG/ML (211-911)
== END ==
LOC: M PLALAB 15:58
PROVIDERS: ATTEND Internal Medicine Hematology
DX: J44.9 Chronic obstructive pulmonary disease, unspecified (principal); M81.0 Age-related osteoporosis without current pathological fracture; I10 Essential (primary) hypertension; Z79.899 Other long term (current) drug therapy; K58.1 Irritable bowel syndrome with constipation; F41.9 Anxiety disorder, unspecified; G31.84 Mild cognitive impairment of uncertain or unknown etiology; R63.4 Abnormal weight loss; L60.0 Ingrowing nail; Z86.39 Personal history of other endocrine, nutritional and metabolic disease